=== PATIENT | female | born 1990 | race African-American/Black ===

== ENCOUNTER 2016-09-04 18:30 | Emergency (ER) | payer MEDICAID, OTHER ==
[~2016-09-04 18:30] MED LIST: Z.0.NO CURRENT MEDS
[2016-09-04 18:32] VITALS: BP 132/74; PULSE 86; RESP 20; TEMP 97.9; O2SAT 100
[2016-09-04] MEDS ORDERED: IBUP800T23 PO (18:43)
[2016-09-04] MEDS ORDERED: PROCHLORPERAZINE INJ 10 MG/2 ML VIAL IV PUSH ONE (19:30)
[2016-09-04] MEDS ORDERED: diphenhydrAMINE HCL 50 MG/ML VIAL IV PUSH ONE (19:30)
[2016-09-04] MEDS ORDERED: SODIUM CHLOR 0.9% 1000 ML INJ 1,000 ML IV ONE (19:30)
--- NOTE | 2016-09-04 19:34 | PD ---
HPI Chief Complaint: Headache Time Seen by Provider: 19:28 Travel History International Travel<30 days: No Contact w/Intl Traveler<30days: No Traveled to known affect area: No History of Present Illness HPI 25-year-old black female presents emergency Department with complaints of a migraine headache. The patient states that this headache started 3 days ago when she woke up in the morning. She was seen approximately urinary half ago by a neurologist was diagnosed with daily headaches with occasional migraines. She takes prescription Motrin for her headaches. She states that this headache has not responded completely. She states that she does get temporary relief but it does come back. Headaches are exacerbated by watching TV. There is no alleviating factors other than taking ibuprofen. Her headaches have been on or off now. There sharp and aching. She rates the pain 8/10. Some associated photophobia but no nausea vomiting. No diplopia. No blurred vision. No recent illness. No numbness, tingling or weakness. No gait disturbance. PFSH Past Medical History Narrative Medical Migraines, gallstones Diminished Hearing: No Tetanus Vaccination: < 5 Years ?: Not Past Surgical History Narrative Surgical Cholecystectomy Social History Alcohol Use: No Tobacco Use: Yes Substance Use: No Allergies-Medications (Allergen,Severity, Reaction): Coded Allergies: No Known Allergies (Verified , 09/04/16) Reported Meds & Prescriptions Reported Meds & Active Scripts Active Reported Ibuprofen 800 Mg Tab 800 Mg PO Q8H PRN Review of Systems Except as stated in HPI: all other systems reviewed are Neg Physical Exam Narrative GENERAL: Well-developed, well-nourished in no apparent distress. Nontoxic appearing. HEAD: Normocephalic, atraumatic. EYES: Pupils equal round and reactive. Extraocular motions intact. No scleral icterus. No injection or drainage. ENT: Nose clear. Throat without erythema, tonsillar hypertrophy or exudate. Uvula midline. Airway patent. NECK: Trachea midline. Supple, nontender, moves head freely. No central bony tenderness or spasm. CARDIOVASCULAR: Regular rate and rhythm without murmurs, gallops, or rubs. RESPIRATORY: Clear to auscultation. Breath sounds equal bilaterally. No wheezes , rales, or rhonchi. GASTROINTESTINAL: Abdomen soft, non-tender, nondistended. No hepato-splenomegaly , or palpable masses. No guarding. EXTREMITIES: No clubbing, cyanosis, or edema. No joint tenderness. BACK: Nontender without deformity. No flank tenderness. NEUROLOGICAL: Awake, alert and oriented x 3 .Cranial nerves grossly intact. Motor and sensory grossly within normal limits. Normal speech. Normal gait. Normal tandem gait. Normal finger to nose. Negative station and Romberg. Data Data Last Documented VS Vital Signs Date Time Temp Pulse Resp B/P Pulse Ox O2 Delivery O2 Flow Rate FiO2 09/04/16 18:44 Room Air 09/04/16 18:32 97.9 86 20 132/74 100 Orders Iv Access Insert/Monitor (09/04/16 19:26) Prochlorperazine Inj (Compazine Inj) (09/04/16 19:30) Diphenhydramine Inj (Benadryl Inj) (09/04/16 19:30) Sodium Chlor 0.9% 1000 Ml Inj (Ns 1000 M (09/04/16 19:30) MDM Medical Decision Making Medical Screen Exam Complete: Yes Emergency Medical Condition: Yes Medical Record Reviewed: Yes Differential Diagnosis MDM: High Differential diagnoses: Subarachnoid hemorrhage, intracranial bleed, aneurysm, pseudotumor, migraine, cluster headache, atypical migraine, temporal arteritis, connective tissue disorder, hypertension, temporal arteritis, sinusitis, sinus headache,malingering Narrative Course IV access is obtained. Patient's given a liter bolus normal saline, Benadryl 50 mg IV and Compazine 10 mg IV. At 2025 the patient is reexamined. She states that her headache is resolved. She is in examination room sleeping. He is medically stable for discharge. Diagnosis Primary Impression: Migraine headache Qualified Code: G43.009 - Migraine without aura and without status migrainosus , not intractable Patient Instructions: General Instructions Additional Instructions: Rest. Increase fluids. Continue home medications as needed. Follow-up with a primary care doctor in the next 1-2 days. Return to the ER for emergencies Med/Other Pt SpecificInfo: No Meds Exist/No RX given Disposition: 01 DISCHARGE HOME Condition: Stable Jaden Marroquin Sep 04, 2016 19:34
== END 2016-09-04 20:48 | disposition home or self-care (01) ==
LOC: NEPD 18:30
DX: G43.009 Migraine without aura, not intractable, without status migrainosus (principal)
CPT/HCPCS: 96374; 96375; 99283; J0780; J1200; J7030

== ENCOUNTER 2017-03-10 16:55 | Emergency (ER) | payer MEDICAID ==
[~2017-03-10] VITALS: Ht 160 cm; Wt 70.0 kg
[~2017-03-10 16:55] MED LIST changes: +IBUP1TAB7 PO; -Z.0.NO CURRENT MEDS
[2017-03-10 16:57] VITALS: BP 140/87; PULSE 100; RESP 13; TEMP 98.7; O2SAT 100
[2017-03-10] MEDS ORDERED: MEDR4PAK PO (17:49)
--- NOTE | 2017-03-10 17:51 | PD ---
HPI Chief Complaint: Pain: Acute or Chronic Time Seen by Provider: 17:48 Travel History International Travel<30 days: No Contact w/Intl Traveler<30days: No Traveled to known affect area: No History of Present Illness HPI 26-year-old female presents to emergency Department with complaint of bilateral arm pain, weakness, and bilateral hand and wrist swelling 2 months. The swelling came about again 3 days ago. She says the swelling is on and off. She also reports bilateral leg pain 2 months, specifically to the right knee and the left ankle. Denies swelling of the legs. Denies injury. Denies fever , vomiting. Denies paresthesias, loss of sensation, decreased range of motion of all extremities. Denies chest pain, shortness of breath, abdominal pain. Has been taking Aleve and ibuprofen for symptom management with no relief. Describes the pain as a tenseness. Rates the pain 7/10. Pain is worse with movement. No known relieving factors. Denies history of autoimmune disorder. Denies significant past medical history. Has tried following up with a primary care provider, but has been unable to get in to see one due to her work insurance. No known allergies. Has no other medical complaints. No other modifying factors or associated signs and symptoms. PFSH Past Medical History Diminished Hearing: No Gastrointestinal Disorders: Yes (GB DISEASE) Tetanus Vaccination: Unknown Influenza Vaccination: No ?: Not LMP: 02/16/17 Past Surgical History Cholecystectomy: Yes Social History Alcohol Use: No Tobacco Use: Yes Substance Use: No Allergies-Medications (Allergen,Severity, Reaction): Coded Allergies: No Known Allergies (Verified , 03/10/17) Reported Meds & Prescriptions Reported Meds & Active Scripts Active Medrol Dosepak (Methylprednisolone) 4 Mg Dspk 4 Mg PO DIRECTED Per Pharmacist direction Review of Systems Except as stated in HPI: all other systems reviewed are Neg Physical Exam Narrative GENERAL: Well-nourished, well-developed black female patient, in no acute distress SKIN: Warm and dry. HEAD: Atraumatic. Normocephalic. EYES: Pupils equal and round at 5 mm with brisk reaction. No scleral icterus. No injection or drainage. ENT: Mucosa pink and moist. Airway patent. NECK: Trachea midline. CARDIOVASCULAR: Regular rate and rhythm. No murmur appreciated. RESPIRATORY: No accessory muscle use. Clear to auscultation. Breath sounds equal bilaterally. GASTROINTESTINAL: Abdomen soft, non-tender, nondistended. Hepatic and splenic margins not palpable. Bowel sounds are active 4 quadrants. MUSCULOSKELETAL: Bilateral upper extremities are supple and non-tense with 2+ radial pulses and sensory intact without erythema; mild edema noted to bilateral hands and wrists, worse to the left than the right; full range of motion; decreased counter clerk strength bilaterally. Bilateral lower extremities are supple and non-tense with 2+ pedal pulses and sensory intact without erythema or edema; right knee with full range of motion and with flexion to 90 and joint stable; right knee is without erythema, edema, ecchymosis or tenderness on palpation. Left ankle is without tenderness on palpation and without erythema, edema, ecchymosis and with full range of motion. No signs of septic joints. No obvious deformities. No clubbing. No cyanosis. No edema. NEUROLOGICAL: Awake and alert. Oriented 3. No obvious cranial nerve deficits. Motor grossly within normal limits. Normal speech. PSYCHIATRIC: Appropriate mood and affect; insight and judgment normal. Data Data Last Documented VS Vital Signs Date Time Temp Pulse Resp B/P (MAP) Pulse Ox O2 Delivery O2 Flow Rate FiO2 03/10/17 16:57 98.7 100 13 140/87 (104) 100 Orders Orders Ed Discharge Order (03/10/17 17:51) MDM Medical Decision Making Medical Screen Exam Complete: Yes Emergency Medical Condition: Yes Medical Record Reviewed: Yes Differential Diagnosis Rheumatoid arthritis, autoimmune disorder, cervical radiculopathy, arthritis, carpal tunnel syndrome Narrative Course 26-year-old female with bilateral arm pain, right knee pain, left ankle pain 2 months. Denies injury. Patient is afebrile and nontoxic-appearing. Denies fever, vomiting. No signs of septic joints. I spoke with Dr. Pearce, my attending physician, and he agrees with my plan of care. Medrol Dosepak prescribed for home. Instructed patient to follow up with primary care provider. Discussed reasons to return to the emergency department. Instructed patient to follow up with primary care provider. Patient verbalizes understanding and agreement with treatment plan. Patient is medically cleared and stable for discharge. Discussed reasons to return to the emergency department. Patient agrees with treatment plan. The patients vital signs are stable and the patient is stable for outpatient follow-up and treatment. Patient discharged home, stable and in no acute distress. Diagnosis Primary Impression: Bilateral arm pain Additional Impressions: Right knee pain Qualified Codes: M25.561 - Pain in right knee Left ankle pain Qualified Codes: M25.572 - Pain in left ankle and joints of left foot Referrals: [facility] Primary Care Physician Patient Instructions: Arm Pain (ED), Arthritis (ED), General Instructions, Knee Pain (ED), Rheumatoid Arthritis (ED) Additional Instructions: Medrol Dosepak as prescribed Tylenol as directed and as needed for pain and inflammation Avoid aggravating activity Increase activity as tolerated Follow-up with primary care provider; information for [facility] has been providing her discharge instructions Return to the emergency department immediately with worsening of symptoms Med/Other Pt SpecificInfo: Prescription(s) given Scripts Methylprednisolone Dosepak (Medrol Dosepak) 4 Mg Dspk 4 MG PO DIRECTED, #1 DSPK 0 Refills Per Pharmacist direction Prov: Fang Worley 03/10/17 Disposition: 01 DISCHARGE HOME Condition: Stable Fang Worley Mar 10, 2017 17:51
== END 2017-03-10 18:15 | disposition home or self-care (01) ==
LOC: NEPK 16:55
DX: M79.602 Pain in left arm (principal); M79.601 Pain in right arm; M25.561 Pain in right knee; M25.572 Pain in left ankle and joints of left foot; R53.1 Weakness; M79.89 Other specified soft tissue disorders; Z72.0 Tobacco use
CPT/HCPCS: 99283

== ENCOUNTER 2017-03-14 18:37 | Emergency (ER) | payer MEDICAID ==
[~2017-03-14] VITALS: Ht 160 cm; Wt 62.0 kg
[~2017-03-14 18:37] MED LIST changes: -IBUP1TAB7 PO; +MEDR4PAK PO
[2017-03-14 18:38] VITALS: BP 160/96; PULSE 65; RESP 16; TEMP 98.4; O2SAT 98
--- NOTE | 2017-03-14 19:46 | PD ---
Physical Exam Date Seen by Provider: Mar 14, 2017 Time Seen by Provider: 19:45 Narrative 26-year-old black female presents to emergency department with complaints of epigastric pain since this morning. She states that she was vomiting all day. No fever chills. No urinary symptoms. Pain is 7/10. No alleviating or exacerbating factors. Vital signs reviewed. Pt waiting for bed placement. Data Data Last Documented VS Vital Signs Date Time Temp Pulse Resp B/P (MAP) Pulse Ox O2 Delivery O2 Flow Rate FiO2 03/14/17 18:38 98.4 65 16 160/96 (117) 98 Room Air [facility] Medical Record Reviewed: No Supervised Visit with NELLIE: Jaden Hancock Mar 14, 2017 19:46
--- NOTE | 2017-03-14 20:48 | PD ---
HPI Chief Complaint: GI Complaint Time Seen by Provider: 20:36 Travel History International Travel<30 days: No Contact w/Intl Traveler<30days: No Traveled to known affect area: No History of Present Illness HPI The patient was seen and examined in the presence of the nurse. This patient complains of epigastric pain. Duration one day. Severity is moderate. No lower quadrant pains. No urinary complaints or fever or diarrhea or vomiting. She ate today without undue discomfort. She has no gallbladder. No alleviating factors. No exacerbating factors. She is not an alcohol drinker or drug user [facility] Past Medical History Diminished Hearing: No Gastrointestinal Disorders: Yes (GB DISEASE) ?: Not LMP: CURRENT Past Surgical History Cholecystectomy: Yes Social History Alcohol Use: No Tobacco Use: Yes Substance Use: No Allergies-Medications (Allergen,Severity, Reaction): Coded Allergies: No Known Allergies (Verified Adverse Reaction, Unknown, 03/14/17) Reported Meds & Prescriptions Reported Meds & Active Scripts Active K-Vescent (Potassium Bicarbonate) 25 Meq Tab 50 Meq PO DAILY Medrol Dosepak (Methylprednisolone) 4 Mg Dspk 4 Mg PO DIRECTED Per Pharmacist direction Review of Systems General / Constitutional: No: Fever Eyes: No: Visual changes HENT: No: Headaches Cardiovascular: No: Chest Pain or Discomfort Respiratory: No: Shortness of Breath Gastrointestinal: Positive: Abdominal Pain Genitourinary: No: Dysuria Musculoskeletal: No: Pain Skin: No Rash Neurologic: No: Weakness Psychiatric: No: Depression Endocrine: No: Polydipsia Hematologic/Lymphatic: No: Easy Bruising Physical Exam Narrative GENERAL: Well-nourished, well-developed patient in no apparent distress. SKIN: Focused skin assessment reveals no rash and nodules. Skin is Warm and dry. HEAD: Atraumatic. Normocephalic. EYES: Pupils equal and round. No scleral icterus. No injection or drainage. ENT: No nasal bleeding or discharge. Mucous membranes pink and moist. NECK: Trachea midline. No JVD. CARDIOVASCULAR: Regular rate and rhythm. No murmur appreciated. RESPIRATORY: No accessory muscle use. Clear to auscultation. Breath sounds equal bilaterally. GASTROINTESTINAL: Abdomen soft, non-tender, nondistended. Hepatic and splenic margins not palpable. MUSCULOSKELETAL: No obvious deformities. No clubbing. No cyanosis. No edema. NEUROLOGICAL: Awake and alert. No obvious cranial nerve deficits. Motor grossly within normal limits. Normal speech. PSYCHIATRIC: Appropriate mood and affect; insight and judgment normal. Data Data Last Documented VS Vital Signs Date Time Temp Pulse Resp B/P (MAP) Pulse Ox O2 Delivery O2 Flow Rate FiO2 03/14/17 18:38 98.4 65 16 160/96 (117) 98 Room Air Orders Orders Complete Blood Count With Diff (03/14/17 20:46) Comprehensive Metabolic Panel (03/14/17 20:46) Lipase (03/14/17 20:46) Iv Access Insert/Monitor (03/14/17 20:46) Sodium Chloride 0.9% Flush (Ns Flush) (03/14/17 21:00) Beta Hcg (Quant/Titer) (03/14/17 20:46) Potassium Bicarb Eff (Effer-K Eff) (03/14/17 21:45) Labs Laboratory Tests Test 03/14/17 20:45 White Blood Count 5.0 TH/MM3 Red Blood Count 4.00 MIL/MM3 Hemoglobin 11.9 GM/DL Hematocrit 34.7 % Mean Corpuscular Volume 86.7 FL Mean Corpuscular Hemoglobin 29.7 PG Mean Corpuscular Hemoglobin Concent 34.3 % Red Cell Distribution Width 13.9 % Platelet Count 197 TH/MM3 Mean Platelet Volume 8.1 FL Neutrophils (%) (Auto) 67.6 % Lymphocytes (%) (Auto) 25.8 % Monocytes (%) (Auto) 5.1 % Eosinophils (%) (Auto) 0.9 % Basophils (%) (Auto) 0.6 % Neutrophils # (Auto) 3.4 TH/MM3 Lymphocytes # (Auto) 1.3 TH/MM3 Monocytes # (Auto) 0.3 TH/MM3 Eosinophils # (Auto) 0.0 TH/MM3 Basophils # (Auto) 0.0 TH/MM3 CBC Comment DIFF FINAL Differential Comment Blood Urea Nitrogen 11 MG/DL Creatinine 0.60 MG/DL Random Glucose 82 MG/DL Total Protein 7.1 GM/DL Albumin 2.2 GM/DL Calcium Level 7.8 MG/DL Alkaline Phosphatase 74 U/L Aspartate Amino Transf (AST/SGOT) 31 U/L Alanine Aminotransferase (ALT/SGPT) 24 U/L Total Bilirubin 0.3 MG/DL Sodium Level 139 MEQ/L Potassium Level 2.9 MEQ/L Chloride Level 105 MEQ/L Carbon Dioxide Level 26.3 MEQ/L Anion Gap 8 MEQ/L Estimat Glomerular Filtration Rate 144 ML/MIN Lipase 60 U/L Human Chorionic Gonadotropin, Quant LESS THAN 1 MIU/ML MDM Medical Decision Making Medical Screen Exam Complete: Yes Emergency Medical Condition: Yes Medical Record Reviewed: Yes Differential Diagnosis Differential diagnosis includes pancreatitis, biliary colic, hepatitis, GERD, peptic ulcer disease. Narrative Course I have reviewed the patient's electronic medical record. Patient was seen here 4 days ago for some vague musculoskeletal complaints IV placed CBC is normal metabolic profile shows hypokalemia of 2.9 otherwise normal LFT's are normal lipase is normal Beta hCG is negative This patient has negative workup other than incidental finding of hypokalemia. She has soft benign nontender abdomen without vomiting or fever. She has no gallbladder. She stable for outpatient follow-up. May be dyspepsia variant. She should follow-up with primary care. I gave her a potassium replacement dose here and a one-time dose replacement on prescription. Diagnosis Primary Impression: Epigastric abdominal pain of unknown etiology Additional Impression: Hypokalemia Additional Instructions: The patient was advised to follow up with their physician and return if they worsen. Med/Other Pt SpecificInfo: Prescription(s) given Scripts Potassium Bicarbonate Effervescent (K-Vescent) 25 Meq Tab 50 MEQ PO DAILY for Electrolyte Replacement, #2 TAB 0 Refills Prov: Walker Jaimes MD 03/14/17 Disposition: DISCHARGE HOME Condition: Stable Walker Jaimes MD Mar 14, 2017 20:48
[2017-03-14] MEDS ORDERED: SODIUM CHLORIDE 0.9% FLUSH 10 ML FLUSH IV FLUSH PRN (21:00)
[2017-03-14 21:17] LABS: AUTOMATED NEUTROPHIL # 3.4 TH/MM3 (1.8-7.7); BASOPHIL % 0.6 % (0.0-2.0); EOSINOPHIL % 0.9 % (0.0-4.0); HEMATOCRIT 34.7 % (35.0-46.0); HEMO FLAGS DIFF FINAL; LYMPH % 25.8 % (9.0-44.0); LYMPHOCYTE # 1.3 TH/MM3 (1.0-4.8); MEAN CELL VOLUME 86.7 FL (80.0-100.0); MEAN CORPUSCULAR HEMOGLOBIN 29.7 PG (27.0-34.0); MEAN CORPUSCULAR HGB CONC 34.3 % (32.0-36.0); MONO % 5.1 % (0.0-8.0); NEUT % 67.6 % (16.0-70.0); PLATELET COUNT 197 TH/MM3 (150-450); RED CELL DISTRIBUTION WIDTH 13.9 % (11.6-17.2)
[2017-03-14 21:28] LABS: ALT (GPT) 24 U/L (10-53); ANION GAP 8 MEQ/L (5-15); AST (GOT) 31 U/L (15-37); BICARBONATE 26.3 MEQ/L (21.0-32.0); BLOOD UREA NITROGEN 11 MG/DL (7-18); CHLORIDE 105 MEQ/L (98-107); GLOMERULAR FILTRATION RATE 144 ML/MIN (>89); SODIUM (NA) 139 MEQ/L (136-145)
[2017-03-14 21:33] LABS: POTASSIUM 2.9 MEQ/L (3.5-5.1)
[2017-03-14 21:36] LABS: ALKALINE PHOSPHATASE 74 U/L (45-117); BETA HCG QUANT LESS THAN 1 MIU/ML (0-5); TOTAL BILIRUBIN ADULT 0.3 MG/DL (0.2-1.0)
[2017-03-14] MEDS ORDERED: KLORCONEF PO (21:43)
[2017-03-14] MEDS ORDERED: POTASSIUM BICARBONATE 25 MEQ EFFERVESCENT TAB PO ONE (21:45)
[2017-03-14 22:02] VITALS: BP 147/76; PULSE 68; RESP 18; O2SAT 97
== END 2017-03-14 22:03 | disposition home or self-care (01) ==
LOC: NEPE 18:37
DX: R10.13 Epigastric pain (principal); E87.6 Hypokalemia; Z72.0 Tobacco use
CPT/HCPCS: 80053; 83690; 84702; 85025; 99283

== ENCOUNTER 2017-03-25 09:59 | Inpatient (IN) | payer MEDICAID ==
[2017-03-25] VITALS (8 sets, daily range): BP systolic 109–139; BP diastolic 67–92; PULSE 107–147; RESP 14–22; TEMP 97.9–98.9; O2SAT 96–100
[~2017-03-25] VITALS: Ht 160 cm; Wt 60.9 kg
[~2017-03-25 09:59] MED LIST changes: +KLORCONEF PO
--- NOTE | 2017-03-25 10:53 | PD ---
HPI Chief Complaint: Respiratory Symptoms Time Seen by Provider: 10:37 Travel History International Travel<30 days: No Contact w/Intl Traveler<30days: No Traveled to known affect area: No History of Present Illness HPI 26-year-old female complains of right-sided chest pain and hemoptysis. Patient states that the symptoms started last night. Patient states that the cough is intermittent cough with mucus and blood. Patient complain a sharp pain localized to the right side chest anteriorly below the right breast. Patient denies any pain radiation. Patient states the pain is worse with deep breathing. Patient denies any injury to the area. Patient denies abdominal pain. Patient denies any nausea vomiting diarrhea. Patient denies any dysuria or frequency. Patient denies any vaginal discharge or bleeding. Patient denies any history of TB exposure. Patient denies history hypertension, diabetes, hyperlipidemia. Patient is a smoker. Patient denies any history of recent immobilization or long distance travel. Patient denies any history of PE or DVT. Patient states that she is not on control pills. PFSH Past Medical History Diminished Hearing: No Gastrointestinal Disorders: Yes (GB DISEASE) Immunizations Current: Yes Influenza Vaccination: No ?: Not LMP: 02/26/17 Past Surgical History Cholecystectomy: Yes Social History Alcohol Use: No Tobacco Use: Yes (/ PPD) Substance Use: No Allergies-Medications (Allergen,Severity, Reaction): Coded Allergies: No Known Allergies (Verified Adverse Reaction, Unknown, 03/25/17) Reported Meds & Prescriptions Reported Meds & Active Scripts Active No Active Prescriptions or Reported Medications Review of Systems General / Constitutional: No: Fever Eyes: No: Visual changes HENT: No: Headaches Cardiovascular: Positive: Chest Pain or Discomfort Respiratory: Positive: Cough, Hemoptysis, No: Shortness of Breath Gastrointestinal: No: Abdominal Pain Genitourinary: No: Dysuria Musculoskeletal: No: Pain Skin: No Rash Neurologic: No: Weakness Psychiatric: No: Depression Endocrine: No: Polydipsia Hematologic/Lymphatic: No: Easy Bruising Physical Exam Narrative GENERAL: Well-nourished, well-developed patient. SKIN: Focused skin assessment warm/dry. HEAD: Normocephalic. EYES: No scleral icterus. No injection or drainage. NECK: Supple, trachea midline. No JVD or lymphadenopathy. CARDIOVASCULAR: Regular rate and rhythm without murmurs, gallops, or rubs. RESPIRATORY: Breath sounds equal bilaterally. No accessory muscle use. GASTROINTESTINAL: Abdomen soft, non-tender, nondistended. MUSCULOSKELETAL: No cyanosis, or edema. BACK: Nontender without obvious deformity. No CVA tenderness. Neurologic exam normal. Data Data Last Documented VS Vital Signs Date Time Temp Pulse Resp B/P (MAP) Pulse Ox O2 Delivery O2 Flow Rate FiO2 03/25/17 11:56 113 14 125/75 (92) 100 Nasal Cannula 2.00 03/25/17 10:01 97.9 Orders Orders Electrocardiogram (03/25/17 10:43) Complete Blood Count With Diff (03/25/17 10:43) Comprehensive Metabolic Panel (03/25/17 10:43) Creatine Kinase (Cpk) (03/25/17 10:43) Troponin I (03/25/17 10:43) Prothrombin Time / Inr (Pt) (03/25/17 10:43) Act Partial Throm Time (Ptt) (03/25/17 10:43) D-Dimer (03/25/17 10:43) Chest, Single Ap (03/25/17 10:43) Iv Access Insert/Monitor (03/25/17 10:43) Ecg Monitoring (03/25/17 10:43) Oxygen Administration (03/25/17 10:43) Oximetry (03/25/17 10:43) Ct Pulmonary Angiogram (03/25/17 10:43) Ed Urine Pregnancytest Poc (03/25/17 10:43) Iohexol 350 Inj (Omnipaque 350 Inj) (03/25/17 12:43) Ceftriaxone Inj (Rocephin Inj) (03/25/17 13:15) Azithromycin Inj (Zithromax Inj) (03/25/17 13:15) Heparin Inj (Heparin Inj) (03/25/17 13:15) Heparin-D5w 25,000 U/250 Ml (Heparin-D5w (03/25/17 13:15) Cbc No Diff, Includes Plts (03/28/17 06:00) Labs Laboratory Tests Test 03/25/17 10:55 White Blood Count 5.9 TH/MM3 Red Blood Count 3.78 MIL/MM3 Hemoglobin 11.1 GM/DL Hematocrit 33.0 % Mean Corpuscular Volume 87.2 FL Mean Corpuscular Hemoglobin 29.3 PG Mean Corpuscular Hemoglobin Concent 33.6 % Red Cell Distribution Width 14.2 % Platelet Count 188 TH/MM3 Mean Platelet Volume 8.3 FL Neutrophils (%) (Auto) 76.7 % Lymphocytes (%) (Auto) 16.9 % Monocytes (%) (Auto) 5.2 % Eosinophils (%) (Auto) 0.8 % Basophils (%) (Auto) 0.4 % Neutrophils # (Auto) 4.5 TH/MM3 Lymphocytes # (Auto) 1.0 TH/MM3 Monocytes # (Auto) 0.3 TH/MM3 Eosinophils # (Auto) 0.0 TH/MM3 Basophils # (Auto) 0.0 TH/MM3 CBC Comment DIFF FINAL Differential Comment Prothrombin Time 10.9 SEC Prothromb Time International Ratio 1.0 RATIO Activated Partial Thromboplast Time 27.2 SEC D-Dimer Quantitative (PE/DVT) 15.05 MG/L FEU Blood Urea Nitrogen 8 MG/DL Creatinine 0.83 MG/DL Random Glucose 93 MG/DL Total Protein 7.6 GM/DL Albumin 2.2 GM/DL Calcium Level 7.8 MG/DL Alkaline Phosphatase 71 U/L Aspartate Amino Transf (AST/SGOT) 28 U/L Alanine Aminotransferase (ALT/SGPT) 16 U/L Total Bilirubin 0.2 MG/DL Sodium Level 138 MEQ/L Potassium Level 3.9 MEQ/L Chloride Level 106 MEQ/L Carbon Dioxide Level 25.4 MEQ/L Anion Gap 7 MEQ/L Estimat Glomerular Filtration Rate 99 ML/MIN Total Creatine Kinase 133 U/L Troponin I LESS THAN 0.02 NG/ML MDM Medical Decision Making Medical Screen Exam Complete: Yes Emergency Medical Condition: Yes Medical Record Reviewed: Yes Interpretation(s) Last Impressions Chest X-Ray 03/25/17 1043 Signed Impressions: Service Date/Time: Saturday, March 25, 2017 11:06 - CONCLUSION: Developing airspace disease right lung base. No other significant abnormality. Corby Murphy MD 11:49 AM. CBC WBC 5.9. Hemoglobin 11.1 hematocrit 33.0. 76 neutrophil. CMP within normal limit. Cardiac enzymes are normal. D-dimer 15.05. 12:57 PM. Last Impressions Chest X-Ray 03/25/17 1043 Signed Impressions: Service Date/Time: Saturday, March 25, 2017 11:06 - CONCLUSION: Developing airspace disease right lung base. No other significant abnormality. Corby Murphy MD CT Angiography 03/25/17 1043 Signed Impressions: Service Date/Time: Saturday, March 25, 2017 12:09 - CONCLUSION: 1. Positive for PE with large saddle embolism in the lobar artery to the right lower lobe. 2. Developing right lower lobe infiltrate 3. No other significant abnormality. Corby Murphy MD Differential Diagnosis Differential diagnosis including chest wall pain, bronchitis, pneumonia, PE, pneumothorax. Narrative Course 26-year-old female with right-sided chest pain and hemoptysis. Heparin bolus and drip started. Rocephin 1 g IV. Zithromax 5 mg IV. Diagnosis Primary Impression: Pulmonary embolus Qualified Codes: I26.92 - Saddle embolus of pulmonary artery without acute cor pulmonale Additional Impression: Pneumonia Qualified Codes: J18.1 - Lobar pneumonia, unspecified organism Scripts No Active Prescriptions or Reported Meds Crow Holley MD Mar 25, 2017 10:53
[2017-03-25 11:15] LABS: AUTOMATED NEUTROPHIL # 4.5 TH/MM3 (1.8-7.7); BASOPHIL % 0.4 % (0.0-2.0); EOSINOPHIL % 0.8 % (0.0-4.0); HEMO FLAGS DIFF FINAL; LYMPH % 16.9 % (9.0-44.0); MEAN CELL VOLUME 87.2 FL (80.0-100.0); MEAN CORPUSCULAR HEMOGLOBIN 29.3 PG (27.0-34.0); MEAN CORPUSCULAR HGB CONC 33.6 % (32.0-36.0); MONO % 5.2 % (0.0-8.0); NEUT % 76.7 % (16.0-70.0); PLATELET COUNT 188 TH/MM3 (150-450); RED BLOOD COUNT 3.78 MIL/MM3 (4.00-5.30); RED CELL DISTRIBUTION WIDTH 14.2 % (11.6-17.2); WHITE BLOOD COUNT 5.9 TH/MM3 (4.0-11.0)
[2017-03-25 11:32] LABS: ALT (GPT) 16 U/L (10-53); ANION GAP 7 MEQ/L (5-15); AST (GOT) 28 U/L (15-37); BICARBONATE 25.4 MEQ/L (21.0-32.0); BLOOD UREA NITROGEN 8 MG/DL (7-18); CHLORIDE 106 MEQ/L (98-107); GLOMERULAR FILTRATION RATE 99 ML/MIN (>89); POTASSIUM 3.9 MEQ/L (3.5-5.1); SODIUM (NA) 138 MEQ/L (136-145)
--- NOTE | 2017-03-25 11:33 | RADRPT ---
EXAM DATE/TIME: 03/25/2017 11:06 [facility] COMPARISON: No previous studies available for comparison. INDICATIONS : Shortness of breath and pain under right breast. MEDICAL HISTORY : None. SURGICAL HISTORY : None. ENCOUNTER: Initial ACUITY: 1 day PAIN SCORE: 7/10 LOCATION: Right lower chest FINDINGS: Increased density is identified in the right lung base. Left lung is clear. Heart and mediastinal structures are normal. CONCLUSION: Developing airspace disease right lung base. No other significant abnormality. Corby Murphy MD on March 25, 2017 at 11:31 Board Certified Radiologist. This report was verified electronically.
[2017-03-25 11:36] LABS: ALKALINE PHOSPHATASE 71 U/L (45-117); CREATINE KINASE 133 U/L (26-192); TOTAL BILIRUBIN ADULT 0.2 MG/DL (0.2-1.0)
[2017-03-25 11:37] LABS: APTT (PATIENT) 27.2 SEC (24.3-30.1); PROTHROMBIN TIME - PATIENT 10.9 SEC (9.8-11.6)
[2017-03-25] MEDS ORDERED: IOHEXOL 350 MG/ML 10 ML VIAL (for RAD DIAG) IVCONTRAST ONE (12:43)
--- NOTE | 2017-03-25 12:48 | RADRPT ---
EXAM DATE/TIME: 03/25/2017 12:09 [facility] COMPARISON: No previous studies available for comparison. INDICATIONS : Chest pain. IV CONTRAST: 75 cc Omnipaque 350 (iohexol) IV RADIATION DOSE: 5.1 CTDIvol (mGy) MEDICAL HISTORY : None SURGICAL HISTORY : Cholecystectomy. ENCOUNTER: Initial ACUITY: 1 day PAIN SCALE: 4/10 LOCATION: Right chest TECHNIQUE: Volumetric scanning of the chest was performed using a pulmonary embolism protocol MIP images were re constructed. Using automated exposure control and adjustment of the mA and/or kV according to patien t size, radiation dose was kept as low as reasonably achievable to obtain optimal diagnostic quality images. DICOM format image data is available electronically for review and comparison. Follow-up recommendations for detected pulmonary nodules are based at a minimum on nodule size and pa tient risk factors according to Fleischner Society Guidelines. FINDINGS: PULMONARY ARTERIES: A large saddle embolism is identified in the lobar artery to the right lower lobe. LUNGS: Peripheral infiltrate is developing in the right lower lobe. Left lung is clear. PLEURAE: There is no pleural thickening or pleural effusion. MEDIASTINUM: There is good visualization of the great vessels of the middle mediastinum. No evidence of mediastin al or hilar adenopathy/mass. MUSCULOSKELETAL: Within normal limits for patient age. MISCELLANEOUS: The visualized upper abdominal organs demonstrate no acute abnormality. CONCLUSION: 1. Positive for PE with large saddle embolism in the lobar artery to the right lower lobe. 2. Developing right lower lobe infiltrate 3. No other significant abnormality. Corby Murphy MD on March 25, 2017 at 12:43 Board Certified Radiologist. This report was verified electronically.
[2017-03-25] MEDS ORDERED: cefTRIAXone INJ 1,000 MG in SODIUM CHLORIDE 0.9% INJ 100 ML IV ONE (13:15)
[2017-03-25] MEDS ORDERED: AZITHROMYCIN INJ 500 MG in SODIUM CHLOR 0.9% 250 ML INJ 250 ML IV ONE (13:15)
[2017-03-25] MEDS ORDERED: HEPARIN SODIUM - IV 10,000 UNITS/10 ML VIAL IV PUSH ONE (13:15)
[2017-03-25] MEDS ORDERED: NALOXONE HCL 0.4 MG/ML AMP IV PUSH PRN (13:30)
[2017-03-25] MEDS ORDERED: ACETAMINOPHEN/HYDROcodone 325 MG/5 MG TAB PO PRN (13:30)
[2017-03-25] MEDS ORDERED: MAGNESIUM HYDROXIDE SUSP 30 ML CUP PO PRN (13:30)
[2017-03-25] MEDS ORDERED: SODIUM CHLORIDE 0.9% FLUSH 10 ML FLUSH IV FLUSH PRN (13:30)
[2017-03-25] MEDS: HEPARIN-D5W 25,000 U/250 ML 250 ML IV PRN (13:54)
[2017-03-25] MEDS: ACETAMINOPHEN/HYDROcodone 325 MG/10 MG TAB PO PRN ×2 (14:00→21:33)
--- NOTE | 2017-03-25 15:56 | RADRPT ---
EXAM DATE/TIME: 03/25/2017 14:45 [facility] COMPARISON: No previous studies available for comparison. INDICATIONS : Bilateral leg pain. Pulmonary embolism. MEDICAL HISTORY : Gallbladder disease. Tobacco use. SURGICAL HISTORY : Cholecystectomy. ENCOUNTER: Initial ACUITY: 2 weeks PAIN SCORE: 8/10 LOCATION: Bilateral leg. TECHNIQUE: Venous ultrasound of the left and right leg was performed from the inguinal ligament to the proximal calf. Real-time, color Doppler and spectral tracing, compression and augmentation techniques were us ed. FINDINGS: RIGHT LEG: There is normal compressibility of the deep venous system from the inguinal region to the proximal ca lf. No echogenic clot is seen in the lumen of the common femoral, femoral, popliteal, and posterior tibial veins. There is a normal response of the venous system to proximal and distal augmentation an d respiration. Prominent lymph nodes in the inguinal region all contain fatty melina and are almost ce rtainly reactive. Largest measures 3.7 x 0.7 x 1.6 cm. LEFT LEG: There is normal compressibility of the deep venous system from the inguinal region to the proximal ca lf. No echogenic clot is seen in the lumen of the common femoral, femoral, popliteal, and posterior tibial veins. There is a normal response of the venous system to proximal and distal augmentation an d respiration. Prominent lymph nodes in a normal region again all contain fatty melina and are likely reactive. Largest measures 2.7 x 1.0 x 2.2 cm. CONCLUSION: 1. Prominent inguinal lymph nodes bilaterally. These all contain fatty melina and are likely reactive. 2. Otherwise negative. No sonographic or Doppler findings of deep venous thrombosis. Mahesh Gamboa MD on March 25, 2017 at 15:53 Board Certified Radiologist. This report was verified electronically.
--- NOTE | 2017-03-25 17:41 | HHI.HP ---
[facility] No Primary Care Physician Admission Diagnosis pulmonary embolus. Pneumonia. Diagnoses: Travel History International Travel<30 Days: No Contact w/Intl Traveler <30 Da: No Traveled to Known Affected Are: No History of Present Illness Mrs. Frank is a 26 -year-old female. She has a past medical history of cholelithiasis with cholecystectomy has resolved. No other past medical history. No history of clotting disorder in both her or her family. She has no history to suggest autoimmune conditions. She came in this morning secondary to having an acute onset of central chest pain overnight that was accompanied by shortness of breath. Imaging shows a right sided pneumonia. Additionally she has a large saddle embolus and negative lower extremity workup for DVTs. She's doing well with oxygen. Pain persists when seen. No other complaints. No changes in neurologic status. No fevers. Review of Systems Constitutional: DENIES: Diaphoretic episodes, Fever, Chills, Dizziness Eyes: DENIES: Blurred vision, Diplopia, Eye inflammation Ears, nose, mouth, throat: DENIES: Tinnitus, Hearing loss, Vertigo Respiratory: COMPLAINS OF: Cough, Hemoptysis, Sputum production, Shortness of breath, DENIES: Apneas, Snoring Cardiovascular: COMPLAINS OF: Chest pain, DENIES: Palpitations, Syncope Gastrointestinal: DENIES: Abdominal pain, Black stools, Bloody stools Musculoskeletal: DENIES: Joint pain, Muscle aches, Stiffness Integumentary: DENIES: Abnormal pigmentation, Pruritus, Rash, Nail changes Hematologic/lymphatic: DENIES: Bruising, Lymphadenopathy Immunologic/allergic: DENIES: Eczema, Urticaria Neurologic: DENIES: Abnormal gait, Headache, Paresthesias Psychiatric: DENIES: Anxiety, Confusion, Hallucinations Past Family Social History Past Medical History Hx of Gallstones Past Surgical History Cholecystectomy Reported Medications Reported Meds & Active Scripts Active No Active Prescriptions or Reported Medications Allergies: Coded Allergies: No Known Allergies (Verified Adverse Reaction, Unknown, 03/25/17) Active Ordered Medications Administered Medications Medications (Trade) Dose Ordered Sig/Mara Route PRN Reason Start Time Stop Time Status Last Admin Dose Admin Heparin Sodium/ Dextrose 250 ml @ 10.8 mls/hr TITRATE PRN IV Coagulation Management 03/25/17 13:15 03/25/17 13:54 Acetaminophen/ Hydrocodone Bitart ([place] 5-325 Mg) 1 tab Q4H PRN PO PAIN SCALE 3 TO 5 03/25/17 13:30 03/25/17 17:28 Acetaminophen/ Hydrocodone Bitart ([place] 10-325 Mg) 1 tab Q4H PRN PO PAIN SCALE 6 TO 10 03/25/17 13:30 03/25/17 14:00 Social History Smoking 1/2 PPD No alcohol abuse No illicit drug abuse Physical Exam Vital Signs Vital Signs Date Time Temp Pulse Resp B/P (MAP) Pulse Ox O2 Delivery O2 Flow Rate FiO2 03/25/17 16:00 98.9 113 20 110/67 (81) 99 03/25/17 15:50 03/25/17 15:18 121 16 122/71 (88) 100 Room Air 03/25/17 11:56 113 14 125/75 (92) 100 Nasal Cannula 2.00 03/25/17 10:23 125 16 109/92 (98) 100 Room Air 03/25/17 10:01 97.9 147 22 139/78 (98) 100 Physical Exam GENERAL: NAD, A&Ox3 HEAD: Normocephalic. NECK: Supple, trachea midline. No lymphadenopathy. EYES: No scleral icterus. No injection or drainage. CARDIOVASCULAR: Regular rate and rhythm without murmurs, gallops, or rubs. RESPIRATORY: Breath sounds equal bilaterally. No accessory muscle use. GASTROINTESTINAL: Abdomen soft, non-tender, nondistended. MUSCULOSKELETAL: No cyanosis, or edema. SKIN: Warm and dry. NEURO: No focal neurological deficitis. Laboratory Laboratory Tests Test 03/25/17 10:55 White Blood Count 5.9 Red Blood Count 3.78 Hemoglobin 11.1 Hematocrit 33.0 Mean Corpuscular Volume 87.2 Mean Corpuscular Hemoglobin 29.3 Mean Corpuscular Hemoglobin Concent 33.6 Red Cell Distribution Width 14.2 Platelet Count 188 Mean Platelet Volume 8.3 Neutrophils (%) (Auto) 76.7 Lymphocytes (%) (Auto) 16.9 Monocytes (%) (Auto) 5.2 Eosinophils (%) (Auto) 0.8 Basophils (%) (Auto) 0.4 Neutrophils # (Auto) 4.5 Lymphocytes # (Auto) 1.0 Monocytes # (Auto) 0.3 Eosinophils # (Auto) 0.0 Basophils # (Auto) 0.0 CBC Comment DIFF FINAL Differential Comment Prothrombin Time 10.9 Prothromb Time International Ratio 1.0 Activated Partial Thromboplast Time 27.2 D-Dimer Quantitative (PE/DVT) 15.05 Blood Urea Nitrogen 8 Creatinine 0.83 Random Glucose 93 Total Protein 7.6 Albumin 2.2 Calcium Level 7.8 Alkaline Phosphatase 71 Aspartate Amino Transf (AST/SGOT) 28 Alanine Aminotransferase (ALT/SGPT) 16 Total Bilirubin 0.2 Sodium Level 138 Potassium Level 3.9 Chloride Level 106 Carbon Dioxide Level 25.4 Anion Gap 7 Estimat Glomerular Filtration Rate 99 Total Creatine Kinase 133 Troponin I LESS THAN 0.02 Result Diagram: 03/25/17 1055 03/25/17 1055 Imaging Last Impressions Chest X-Ray 03/25/17 1043 Signed Impressions: Service Date/Time: Saturday, March 25, 2017 11:06 - CONCLUSION: Developing airspace disease right lung base. No other significant abnormality. Corby Murphy MD CT Angiography 03/25/17 1043 Signed Impressions: Service Date/Time: Saturday, March 25, 2017 12:09 - CONCLUSION: 1. Positive for PE with large saddle embolism in the lobar artery to the right lower lobe. 2. Developing right lower lobe infiltrate 3. No other significant abnormality. Corby Murphy MD Lower Extremity Ultrasound 03/25/17 0000 Signed Impressions: Service Date/Time: Saturday, March 25, 2017 14:45 - CONCLUSION: 1. Prominent inguinal lymph nodes bilaterally. These all contain fatty melina and are likely reactive. 2. Otherwise negative. No sonographic or Doppler findings of deep venous thrombosis. Mahesh Gamboa MD Caprini VTE Risk Assessment Caprini VTE Risk Assessment: Mod/High Risk (score >= 2) Caprini Risk Assessment Model Point Value = 1 Point Value = 2 Point Value = 3 Point Value = 5 Age 41-60 Minor surgery BMI > 25 kg/m2 Swollen legs Varicose veins or History of unexplained or recurrent spontaneous Oral contraceptives or hormone replacement Sepsis (< 1 month) Serious lung disease, including pneumonia (< 1 month) Abnormal pulmonary function Acute myocardial infarction Congestive heart failure (< 1 month) History of inflammatory bowel disease Medical patient at bed rest Age 61-74 Arthroscopic surgery Major open surgery (> 45 min) Laparoscopic surgery (> 45 min) Malignancy Confined to bed (> 72 hours) Immobilizing plaster cast Central venous access Age >= 75 History of VTE Family history of VTE Factor V Leiden Prothrombin [id number] Lupus anticoagulant Anticardiolipin antibodies Elevated serum homocysteine Heparin-induced thrombocytopenia Other congenital or acquired thrombophilia Stroke (< 1 month) Elective arthroplasty Hip, pelvis, or leg fracture Acute spinal cord injury (< 1 month) Prophylaxis Regimen Total Risk Factor Score Risk Level Prophylaxis Regimen 0-1 Low Early ambulation 2 Moderate Order ONE of the following: *Sequential Compression Device (SCD) *Heparin 5000 units SQ BID 3-4 Higher Order ONE of the following medications: *Heparin 5000 units SQ TID *Enoxaparin/Lovenox 40 mg SQ daily (WT < 150 kg, CrCl > 30 mL/min) *Enoxaparin/Lovenox 30 mg SQ daily (WT < 150 kg, CrCl > 10-29 mL/min) *Enoxaparin/Lovenox 30 mg SQ BID (WT < 150 kg, CrCl > 30 mL/min) AND/OR *Sequential Compression Device (SCD) 5 or more Highest Order ONE of the following medications: *Heparin 5000 units SQ TID (Preferred with Epidurals) *Enoxaparin/Lovenox 40 mg SQ daily (WT < 150 kg, CrCl > 30 mL/min) *Enoxaparin/Lovenox 30 mg SQ daily (WT < 150 kg, CrCl > 10-29 mL/min) *Enoxaparin/Lovenox 30 mg SQ BID (WT < 150 kg, CrCl > 30 mL/min) AND *Sequential Compression Device (SCD) Assessment and Plan Problem List: (1) Pneumonia ICD Code: J18.9 - Pneumonia, unspecified organism Status: Acute (2) Pulmonary embolus ICD Code: I26.99 - Other pulmonary embolism without acute cor pulmonale Status: Acute (3) Migraine headache ICD Code: G43.909 - Migraine, unspecified, not intractable, without status migrainosus Status: Acute Assessment and Plan Assessment and Plan 26 year old female admitted with a Large Saddle Pulmonary Embolus and Pneumonia Large Saddle Pulmonary Embolus IV Heparin Follow on Estimate Clerk for symptoms Oxygen as needed No DVT of lower extremity US Hematology consulted Pneumonia (Community Acquired) Rocephin Azithromycin Probiotics Oxygen as needed DVT Prophylaxis Heparin IV Drip Physician Certification 2 Midnight Certification Type: Admission for Inpatient Services Order for Inpatient Services The services are ordered in accordance with Medicare regulations or non- Medicare payer requirements, as applicable. In the case of services not specified as inpatient-only, they are appropriately provided as inpatient services in accordance with the 2-midnight benchmark. Estimated LOS (days): 3 days is the estimated time the patient will need to remain in the hospital, assuming treatment plan goals are met and no additional complications. Post-Hospital Plan: Home Problem Qualifiers (1) Pneumonia: Qualified Codes: J18.1 - Lobar pneumonia, unspecified organism (2) Pulmonary embolus: Qualified Codes: I26.92 - Saddle embolus of pulmonary artery without acute cor pulmonale Juan Qureshi MD Mar 25, 2017 17:41
[2017-03-25] MEDS: LACTOBACILLUS ACIDOPHILUS TAB PO SCH (18:00)
[2017-03-25] MEDS: SODIUM CHLORIDE 0.9% FLUSH 10 ML FLUSH IV FLUSH SCH (21:00)
[2017-03-25 21:51] LABS: APTT (PATIENT) 44.2 SEC (24.3-30.1)
[2017-03-26] VITALS (7 sets, daily range): BP systolic 102–111; BP diastolic 57–72; PULSE 110–121; RESP 18–23; TEMP 98.6–102.8; O2SAT 94–100
[2017-03-26] MEDS: ONDANSETRON HCL 4 MG/2 ML VIAL IVP PRN ×3 (00:31→21:46)
[2017-03-26] MEDS: MORPHINE SULFATE 2 MG/ML INJ IV PUSH PRN ×5 (00:31→21:47)
[2017-03-26] MEDS: ACETAMINOPHEN/HYDROcodone 325 MG/10 MG TAB PO PRN ×4 (02:40→19:10)
[2017-03-26] MEDS ORDERED: ACETAMINOPHEN 325 MG TAB PO PRN (02:45)
[2017-03-26 04:22] LABS: AUTOMATED NEUTROPHIL # 8.9 TH/MM3 (1.8-7.7); BASOPHIL % 0.4 % (0.0-2.0); EOSINOPHIL % 0.2 % (0.0-4.0); HEMATOCRIT 28.4 % (35.0-46.0); HEMO FLAGS DIFF FINAL; LYMPH % 10.4 % (9.0-44.0); LYMPHOCYTE # 1.1 TH/MM3 (1.0-4.8); MEAN CELL VOLUME 86.6 FL (80.0-100.0); MEAN CORPUSCULAR HEMOGLOBIN 29.9 PG (27.0-34.0); MEAN CORPUSCULAR HGB CONC 34.5 % (32.0-36.0); MONO % 5.4 % (0.0-8.0); NEUT % 83.6 % (16.0-70.0); PLATELET COUNT 151 TH/MM3 (150-450); RED BLOOD COUNT 3.28 MIL/MM3 (4.00-5.30); RED CELL DISTRIBUTION WIDTH 14.4 % (11.6-17.2); WHITE BLOOD COUNT 10.6 TH/MM3 (4.0-11.0)
[2017-03-26 04:30] LABS: RHEUMATOID FACTOR TRIGGER 20.6 IU/ML (0.0-14.9)
[2017-03-26 04:47] LABS: APTT (PATIENT) 40.8 SEC (24.3-30.1)
[2017-03-26 04:52] LABS: POTASSIUM 3.9 MEQ/L (3.5-5.1); TOTAL BILIRUBIN ADULT 0.3 MG/DL (0.2-1.0)
[2017-03-26 05:08] LABS: CALCIUM-PROTEIN CORRECTED 7.3 MG/DL (8.5-10.1)
[2017-03-26] MEDS ORDERED: CALCIUM GLUCONATE INJ 1 GM in DEXTROSE 5% IN WATER 100ML INJ 100 ML IV ONE ×2 (07:00)
[2017-03-26] MEDS ORDERED: CALCIUM CARBONATE 1.25 GM (CA 500 MG) TAB PO ONE (08:15)
[2017-03-26] MEDS: LACTOBACILLUS ACIDOPHILUS TAB PO SCH ×3 (08:59→17:35)
[2017-03-26] MEDS: SODIUM CHLORIDE 0.9% FLUSH 10 ML FLUSH IV FLUSH SCH ×2 (09:03→21:48)
--- NOTE | 2017-03-26 12:48 | PD.ONC.PN ---
Objective Data Date Time Temp Pulse Resp B/P (MAP) Pulse Ox O2 Delivery O2 Flow Rate FiO2 03/26/17 04:00 99.4 03/26/17 04:00 99.4 118 18 103/62 (76) 94 03/26/17 02:00 102.8 03/26/17 00:30 Room Air 03/26/17 00:00 100.0 120 23 111/72 (85) 99 03/25/17 21:30 Room Air 03/25/17 20:36 107 03/25/17 20:00 97.9 122 21 112/71 (85) 96 03/25/17 18:28 123 03/25/17 17:41 03/25/17 16:00 98.9 113 20 110/67 (81) 99 03/25/17 15:50 03/25/17 15:18 121 16 122/71 (88) 100 Room Air 03/26/17 03/26/17 03/26/17 07:00 15:00 23:00 Intake Total 224 ml 110 ml Balance 224 ml 110 ml Result Diagram: 03/26/17 0358 03/26/17 0358 Laboratory Results Laboratory Tests Test 03/25/17 18:17 03/25/17 21:28 03/26/17 03:58 Activated Partial Thromboplast Time 97.0 SEC 44.2 SEC 40.8 SEC White Blood Count 10.6 TH/MM3 Red Blood Count 3.28 MIL/MM3 Hemoglobin 9.8 GM/DL Hematocrit 28.4 % Mean Corpuscular Volume 86.6 FL Mean Corpuscular Hemoglobin 29.9 PG Mean Corpuscular Hemoglobin Concent 34.5 % Red Cell Distribution Width 14.4 % Platelet Count 151 TH/MM3 Mean Platelet Volume 8.7 FL Neutrophils (%) (Auto) 83.6 % Lymphocytes (%) (Auto) 10.4 % Monocytes (%) (Auto) 5.4 % Eosinophils (%) (Auto) 0.2 % Basophils (%) (Auto) 0.4 % Neutrophils # (Auto) 8.9 TH/MM3 Lymphocytes # (Auto) 1.1 TH/MM3 Monocytes # (Auto) 0.6 TH/MM3 Eosinophils # (Auto) 0.0 TH/MM3 Basophils # (Auto) 0.0 TH/MM3 CBC Comment DIFF FINAL Differential Comment Erythrocyte Sedimentation Rate 118 mm/hr Blood Urea Nitrogen 12 MG/DL Creatinine 1.07 MG/DL Random Glucose 95 MG/DL Total Protein 7.3 GM/DL Albumin 1.9 GM/DL Calcium Level 7.3 MG/DL Alkaline Phosphatase 67 U/L Aspartate Amino Transf (AST/SGOT) 23 U/L Alanine Aminotransferase (ALT/SGPT) 13 U/L Total Bilirubin 0.3 MG/DL Sodium Level 135 MEQ/L Potassium Level 3.9 MEQ/L Chloride Level 104 MEQ/L Carbon Dioxide Level 25.0 MEQ/L Anion Gap 6 MEQ/L Estimat Glomerular Filtration Rate 74 ML/MIN Protein Corrected Calcium 7.3 MG/DL C-Reactive Protein 10.40 MG/DL Rheumatoid Factor Screen POSITIVE Rheumatoid Factor Titer 20.6 IU/ML Administered Medications Medications (Trade) Dose Ordered Sig/Mara Route PRN Reason Start Time Stop Time Status Last Admin Dose Admin Heparin Sodium/ Dextrose 250 ml @ 10.8 mls/hr TITRATE PRN IV Coagulation Management 03/25/17 13:15 03/25/17 13:54 Sodium Chloride (NS Flush) 2 ml BID IV FLUSH 03/25/17 21:00 03/26/17 09:03 Ondansetron HCl (Zofran Inj) 4 mg Q6H PRN IVP NAUSEA OR VOMITING 03/25/17 13:30 03/26/17 00:31 Acetaminophen/ Hydrocodone Bitart ([place] 5-325 Mg) 1 tab Q4H PRN PO PAIN SCALE 3 TO 5 03/25/17 13:30 03/25/17 17:28 Acetaminophen/ Hydrocodone Bitart ([place] 10-325 Mg) 1 tab Q4H PRN PO PAIN SCALE 6 TO 10 03/25/17 13:30 03/26/17 08:59 Lactobacillus Acidophilus (Lactinex) 1 tab TID PO 03/25/17 18:00 03/26/17 08:59 Morphine Sulfate (Morphine Inj) 2 mg Q3H PRN IV PUSH breakthrough 03/26/17 00:30 03/26/17 11:57 Acetaminophen (Tylenol) 650 mg Q4H PRN PO fever 03/26/17 02:45 03/26/17 02:54 Objective Remarks GENERAL: Well-nourished, well-developed patient. SKIN: Warm and dry. HEAD: Normocephalic. EYES: No scleral icterus. No injection or drainage. NECK: Supple, trachea midline. No JVD or lymphadenopathy. LYMPHATIC: No adenopathy. CARDIOVASCULAR: Regular rate and rhythm without murmurs. RESPIRATORY: Breath sounds equal bilaterally. No accessory muscle use. GASTROINTESTINAL: Abdomen soft, non-tender, nondistended. EXTREMITIES: No cyanosis, or edema. MUSCULOSKELETAL: Adequate muscle tone. NEUROLOGICAL: No obvious focal deficit. Awake, alert, and oriented x3. PSYCHIATRIC: Appropriate mood and affect; insight and judgment normal. Enrique Quinones MD Mar 26, 2017 12:48
[2017-03-26] MEDS: AZITHROMYCIN INJ 500 MG in SODIUM CHLOR 0.9% 250 ML INJ 250 ML IV SCH (13:00)
[2017-03-26] MEDS: cefTRIAXone INJ 1,000 MG in SODIUM CHLORIDE 0.9% INJ 100 ML IV SCH (13:00)
--- NOTE | 2017-03-26 13:07 | EKG ---
Date Performed: 03/25/2017 Time Performed: 11:02:07 PTAGE: 26 years EKG: SINUS TACHYCARDIA ABNORMAL RHYTHM ECG NO PREVIOUS TRACING DOCTOR: Chad Stokes Interpretating Date/Time 03/26/2017 13:05:03
--- NOTE | 2017-03-26 13:42 | MB ---
cc: ERLINDA FALCON DATE OF CONSULTATION: 03/25/2017. REASON FOR CONSULTATION: Patient with a large saddle embolism in the lobar artery to the right lobe as well as DVT. HISTORY OF PRESENT ILLNESS: This is a 26-year-old female with a past medical history of cholelithiasis and has had a cholecystectomy. She has no other past medical history. She presented to the emergency department with acute dyspnea which began three to four days ago and progressively became worse. In the emergency room, a CT angiogram was obtained which revealed a large saddle embolism in the lobar artery of the right lower lobe. She also had Doppler ultrasound of lower extremity which did not reveal any findings of DVT. The patient was started on heparin drip. Hematology has been consulted to make further recommendations. The patient was found to have pneumonia on CT scan and she is currently on IV antibiotics. She has no past medical history of blood disorders. She denies any family members with any blood clots, heart attack, stroke at an early age. She smokes cigarettes. She does not drink alcohol. No illicit drug use. REVIEW OF SYSTEMS: A comprehensive fourteen-point review of systems was completed, which is negative except as described in the history of present illness. PAST MEDICAL HISTORY: History of cholelithiasis. PAST SURGICAL HISTORY: Cholecystectomy. MEDICATIONS: 1. Ceftriaxone 1000 milligrams q.24 h. 2. Azithromycin 5 milligrams IV q.24 h. 3. Tylenol 650 p.o. q.4 h. 4. Morphine sulfate 2 milligrams IV q. 3 hours. 5. Lactobacillus one tablet p.o. three times a day. 6. Zofran 4 milligrams IV q. 6 hours. 7. [place] 5/325 one tablet p.o. q. 4 hours. 8. Milk of magnesia. 9. Heparin GTT. ALLERGIES: She has NO KNOWN DRUG ALLERGIES. FAMILY HISTORY: Family history was reviewed and she does not have any family history of blood disorders. SOCIAL HISTORY: She smokes half-a-pack of cigarettes per day. No alcohol abuse. No illicit drug use. PHYSICAL EXAMINATION: VITAL SIGNS: Blood pressure is 110/67, pulse in the 100s, temperature is 98.9. GENERAL: A well-developed, well-nourished young female in no apparent distress. HEAD, EYES, EARS, NOSE, THROAT: Pupils are equal, round and reactive to light. Extraocular muscles intact. No oral thrush. No oral lesions. NECK: The neck is supple. No jugular venous distention. No bruits. No lymphadenopathy. CHEST: Clear to auscultation bilaterally. CARDIAC: S1-S2. Regular rate and rhythm. ABDOMEN: The abdomen is soft, nontender and nondistended. Bowel sounds are present. EXTREMITIES: Without any edema, erythema or cyanosis. SKIN: Without any petechiae or lesions or bruises. NEUROLOGIC: No focal deficit. PSYCHIATRIC: Mood and affect are appropriate. LABORATORY DATA: WBC 5.9, hemoglobin 11.1, MCV is 87.2, platelet count of 188,000. Serum chemistries show a sodium of 138, potassium 3.9, chloride 106, CO2 25.4, anion gap is 7, BUN is 8, creatinine is 0.83, GFR is 99, glucose is 93, calcium is 7.8, AST is 28, ALT 16, alkaline phosphatase is 71, CK is 133, albumin is 2.2. The patient has a positive rheumatoid factor screen. NASREEN is pending. Her erythrocyte sedimentation rate is elevated to 118. IMAGING STUDIES: Imaging was reviewed in the electronic medical record. ASSESSMENT AND PLAN: This is a 26-year-old female with a history of cholelithiasis status post cholecystectomy and no significant past medical history who presents to the emergency department with acute dyspnea and heart palpitations. 1. Acute pulmonary saddle embolism in an un-provoked situation. She has no past medical history of any blood disorders or blood clots. Family history is insignificant also. Her only risk factor is tobacco abuse. There is no history of autoimmune disorders; however, her rheumatoid screen is positive. There is no history of any supplemental hormones et cetera, she has not had prolonged car travel or airline flight. I agree with heparin GTT. We can switch this patient to either warfarin or Eliquis depending on if this is allowed by her insurance. If she is switched to Coumadin, then continue heparin GTT for 48 hours until after her INR is greater than 2. She will need to establish a primary care physician to manage her Coumadin. She will need Coumadin education. She will need to be on anticoagulation for at least six months. We can obtain a partial hypercoagulable workup since some of the lab workup is not reliable while on anticoagulation and in the setting of acute thrombosis. We can reliably check for Factor V Leiden, antiphospholipid antibodies, prothrombin mutations, and NASREEN while anti- thrombin III deficiency for activated protein-C resistance and protein-S will be deferred and should be checked in the outpatient setting in 6 months after her AC has been stopped. The findings in the hypercoagulable workup will not change our management. She needs to be on anticoagulation at least for six months, and possibly indefinitely. She will need re-evaluation at that time 2. Pneumonia currently on antibiotics. Thank you for allowing me to participate in the care of this patient. I will continue to follow this patient along. MD KENDRA Garcia/RAÚL /12:45 PM /1:31 PM [id number]
[2017-03-26] MEDS: HEPARIN-D5W 25,000 U/250 ML 250 ML IV PRN (14:18)
--- NOTE | 2017-03-26 14:21 | HHI.PR ---
Subjective Remarks Rheumatoid factor test positive. Patient interviewed further about joint pains. She says about 2 months ago she had an acute onset of joint pains and has been fairly incapacitated since that time. She says she spends most of her time in chairs and bed for the past 2 months. When she takes a shower she has to sit in a chair due to the pain. She has difficulty dressing. Most of the pain is present at her knees, feet, hands, and wrists. All joints are involved. This is suggestive of rheumatoid arthritis but could also reflect other autoimmune conditions including lupus. The inflammation in the stasis could've been contributory to her pulmonary embolus. No DVT on scan of lower extremities. Objective Vital Signs Date Time Temp Pulse Resp B/P (MAP) Pulse Ox O2 Delivery O2 Flow Rate FiO2 03/26/17 12:12 99.7 116 20 103/67 (79) 99 03/26/17 04:00 99.4 03/26/17 04:00 99.4 118 18 103/62 (76) 94 03/26/17 02:00 102.8 03/26/17 00:30 Room Air 03/26/17 00:00 100.0 120 23 111/72 (85) 99 03/25/17 21:30 Room Air 03/25/17 20:36 107 03/25/17 20:00 97.9 122 21 112/71 (85) 96 03/25/17 18:28 123 03/25/17 17:41 03/25/17 16:00 98.9 113 20 110/67 (81) 99 03/25/17 15:50 03/25/17 15:18 121 16 122/71 (88) 100 Room Air I/O 03/25/17 03/25/17 03/25/17 03/26/17 03/26/17 03/26/17 07:00 15:00 23:00 07:00 15:00 23:00 Intake Total 100 ml 74 ml 224 ml 110 ml Balance 100 ml 74 ml 224 ml 110 ml Intake Oral 120 ml IV Total 100 ml 74 ml 104 ml 110 ml # Voids 1 Result Diagram: 03/26/17 0358 03/26/17 0358 Objective Remarks GENERAL: NAD, A&Ox3 HEAD: Normocephalic. NECK: Supple, trachea midline. No lymphadenopathy. EYES: No scleral icterus. No injection or drainage. CARDIOVASCULAR: Regular rate and rhythm without murmurs, gallops, or rubs. RESPIRATORY: Breath sounds equal bilaterally. No accessory muscle use. GASTROINTESTINAL: Abdomen soft, non-tender, nondistended. MUSCULOSKELETAL: No cyanosis, or edema. Joint tenderness at hands and wrists with palpation SKIN: Warm and dry. NEURO: No focal neurological deficitis. A/P Problem List: (1) Pulmonary embolus ICD Code: I26.99 - Other pulmonary embolism without acute cor pulmonale Status: Acute (2) Pneumonia ICD Code: J18.9 - Pneumonia, unspecified organism Status: Acute (3) Migraine headache ICD Code: G43.909 - Migraine, unspecified, not intractable, without status migrainosus Status: Acute Assessment and Plan Assessment and Plan 26 year old female admitted with a Large Saddle Pulmonary Embolus and Pneumonia. Hematology has added a hypercoagulability panel Large Saddle Pulmonary Embolus IV Heparin Follow on Tobacco Classer for symptoms Oxygen as needed No DVT of lower extremity US Hematology following, assistance appreciated Autoimmunity NOS May be rheumatoid arthritis based on history and positive rheumatoid factors NASREEN is pending I will start steroids once her acute conditions stabilize further Pneumonia (Community Acquired) Rocephin Azithromycin Probiotics Oxygen as needed DVT Prophylaxis Heparin IV Drip Problem Qualifiers (1) Pulmonary embolus: Qualified Codes: I26.92 - Saddle embolus of pulmonary artery without acute cor pulmonale (2) Pneumonia: Qualified Codes: J18.1 - Lobar pneumonia, unspecified organism Juan Qureshi MD Mar 26, 2017 14:20
[2017-03-27] VITALS: BP 102/57; PULSE 110; RESP 18; TEMP 98.2; O2SAT 100
[2017-03-27 04:00] VITALS: BP 103/58; PULSE 109; RESP 18; TEMP 98.3; O2SAT 100
[2017-03-27] MEDS: MORPHINE SULFATE 2 MG/ML INJ IV PUSH PRN ×3 (04:34→13:08)
[2017-03-27 08:00] VITALS: BP 104/61; PULSE 110; PULSE 130; RESP 18; TEMP 99; O2SAT 91
[2017-03-27 08:08] LABS: AUTOMATED NEUTROPHIL # 11.2 TH/MM3 (1.8-7.7); BASOPHIL # 0.1 TH/MM3 (0-0.2); BASOPHIL % 0.4 % (0.0-2.0); HEMATOCRIT 28.1 % (35.0-46.0); HEMO FLAGS DIFF FINAL; LYMPH % 7.9 % (9.0-44.0); MEAN CELL VOLUME 87.1 FL (80.0-100.0); MEAN CORPUSCULAR HEMOGLOBIN 28.8 PG (27.0-34.0); MONO % 5.1 % (0.0-8.0); NEUT % 86.6 % (16.0-70.0); PLATELET COUNT 153 TH/MM3 (150-450); RED BLOOD COUNT 3.23 MIL/MM3 (4.00-5.30); RED CELL DISTRIBUTION WIDTH 14.8 % (11.6-17.2); WHITE BLOOD COUNT 12.9 TH/MM3 (4.0-11.0)
[2017-03-27 08:16] LABS: APTT (PATIENT) 54.9 SEC (24.3-30.1)
[2017-03-27] MEDS: LACTOBACILLUS ACIDOPHILUS TAB PO SCH ×3 (08:22→17:06)
[2017-03-27] MEDS: ACETAMINOPHEN/HYDROcodone 325 MG/10 MG TAB PO PRN ×4 (08:22→17:07)
[2017-03-27 08:35] LABS: ALKALINE PHOSPHATASE 62 U/L (45-117); ALT (GPT) 11 U/L (10-53); ANION GAP 10 MEQ/L (5-15); AST (GOT) 20 U/L (15-37); BICARBONATE 21.3 MEQ/L (21.0-32.0); BLOOD UREA NITROGEN 22 MG/DL (7-18); CHLORIDE 100 MEQ/L (98-107); GLOMERULAR FILTRATION RATE 28 ML/MIN (>89); POTASSIUM 4.4 MEQ/L (3.5-5.1); SODIUM (NA) 131 MEQ/L (136-145); TOTAL BILIRUBIN ADULT 0.3 MG/DL (0.2-1.0)
[2017-03-27] MEDS: SODIUM CHLORIDE 0.9% FLUSH 10 ML FLUSH IV FLUSH SCH ×2 (09:00→21:00)
[2017-03-27] MEDS: ONDANSETRON HCL 4 MG/2 ML VIAL IVP PRN ×2 (09:39→14:42)
--- NOTE | 2017-03-27 10:28 | HHI.PR ---
Subjective Remarks Patient reports coughing up blood today. Trace amounts of blood are seen in mucus. Nothing to suggest acute bleed, blood may be old based on appearance. Slight downward trend in hemoglobin to 9.3 today. Objective Vital Signs Date Time Temp Pulse Resp B/P (MAP) Pulse Ox O2 Delivery O2 Flow Rate FiO2 03/27/17 08:00 99.0 110 18 104/61 (75) 91 03/27/17 04:00 Nasal Cannula 2.00 03/27/17 04:00 98.3 109 18 103/58 (73) 100 03/27/17 00:00 98.2 110 18 102/57 (72) 100 03/27/17 00:00 Nasal Cannula 2.00 03/26/17 21:40 Nasal Cannula 2.00 03/26/17 20:00 116 03/26/17 20:00 98.6 121 18 105/57 (73) 100 03/26/17 16:12 98.6 110 20 102/61 (75) 99 03/26/17 12:12 99.7 116 20 103/67 (79) 99 I/O 03/26/17 03/26/17 03/26/17 03/27/17 03/27/17 03/27/17 07:00 15:00 23:00 07:00 15:00 23:00 Intake Total 224 ml 460 ml 480 ml 435 ml Balance 224 ml 460 ml 480 ml 435 ml Intake Oral 120 ml 480 ml IV Total 104 ml 460 ml 435 ml # Voids 1 3 2 # Bowel Movements 0 Result Diagram: 03/27/17 0700 03/27/17 0700 Objective Remarks GENERAL: NAD, A&Ox3 HEAD: Normocephalic. NECK: Supple, trachea midline. No lymphadenopathy. EYES: No scleral icterus. No injection or drainage. CARDIOVASCULAR: Regular rate and rhythm without murmurs, gallops, or rubs. RESPIRATORY: Breath sounds equal bilaterally. No accessory muscle use. GASTROINTESTINAL: Abdomen soft, non-tender, nondistended. MUSCULOSKELETAL: No cyanosis, or edema. Joint tenderness at hands and wrists with palpation SKIN: Warm and dry. NEURO: No focal neurological deficitis. A/P Problem List: (1) Pulmonary embolus ICD Code: I26.99 - Other pulmonary embolism without acute cor pulmonale Status: Acute (2) Pneumonia ICD Code: J18.9 - Pneumonia, unspecified organism Status: Acute (3) Migraine headache ICD Code: G43.909 - Migraine, unspecified, not intractable, without status migrainosus Status: Acute Assessment and Plan Assessment and Plan 26 year old female admitted with a Large Saddle Pulmonary Embolus and Pneumonia. Hematology has added a hypercoagulability panel. Labs reviewed. Slight worsening anemia. Follow H&H. Continue heparin. Add steroids for autoimmunity. Large Saddle Pulmonary Embolus IV Heparin Follow on [employer] for symptoms Oxygen as needed No DVT of lower extremity US Hematology following, assistance appreciated Autoimmunity NOS May be rheumatoid arthritis based on history and positive rheumatoid factors NASREEN is pending Continue Solu-Medrol at low doses for now Pneumonia (Community Acquired) Rocephin Azithromycin Probiotics Oxygen as needed DVT Prophylaxis Heparin IV Drip Problem Qualifiers (1) Pulmonary embolus: Qualified Codes: I26.92 - Saddle embolus of pulmonary artery without acute cor pulmonale (2) Pneumonia: Qualified Codes: J18.1 - Lobar pneumonia, unspecified organism Juan Qureshi MD Mar 27, 2017 10:28
[2017-03-27] MEDS ORDERED: methylPREDNISolone SOD SUCC 40 MG/1 ML VIAL IV PUSH ONE (10:30)
[2017-03-27] MEDS: cefTRIAXone INJ 1,000 MG in SODIUM CHLORIDE 0.9% INJ 100 ML IV SCH (11:59)
[2017-03-27] MEDS: AZITHROMYCIN INJ 500 MG in SODIUM CHLOR 0.9% 250 ML INJ 250 ML IV SCH (11:59)
[2017-03-27 12:00] VITALS: BP 105/87; PULSE 104; RESP 18; TEMP 98.5; O2SAT 98
[2017-03-27 14:44] LABS: ANA SCREEN POS (NEG)
[2017-03-27 16:00] VITALS: BP 109/69; PULSE 92; RESP 18; TEMP 98; O2SAT 97
[2017-03-27] MEDS: SODIUM CHLOR 0.9% 1000 ML INJ 1,000 ML IV SCH (16:30)
[2017-03-27] MEDS: methylPREDNISolone SOD SUCC 40 MG/1 ML VIAL IV PUSH SCH (17:07)
[2017-03-27 20:00] VITALS: BP 119/75; PULSE 100; PULSE 85; PULSE 87; PULSE 94; RESP 18; TEMP 97.6; O2SAT 92
[2017-03-27] MEDS: DOCUSATE SODIUM 100 MG CAP PO SCH (21:00)
[2017-03-27] MEDS: HEPARIN-D5W 25,000 U/250 ML 250 ML IV PRN (22:10)
--- NOTE | 2017-03-27 23:39 | PD.ONC.PN ---
Subjective Subjective Remarks slight chest discomfort mild hemoptyses no heart palpitation Objective Data Date Time Temp Pulse Resp B/P (MAP) Pulse Ox O2 Delivery O2 Flow Rate FiO2 03/27/17 20:00 97.6 87 18 119/75 (90) 92 03/27/17 16:00 98.0 92 18 109/69 (82) 97 03/27/17 13:00 20 03/27/17 12:00 98.5 104 18 105/87 (93) 98 03/27/17 09:43 20 03/27/17 08:00 130 03/27/17 08:00 99.0 110 18 104/61 (75) 91 03/27/17 08:00 Nasal Cannula 2.00 03/27/17 04:00 Nasal Cannula 2.00 03/27/17 04:00 98.3 109 18 103/58 (73) 100 03/27/17 00:00 98.2 110 18 102/57 (72) 100 03/27/17 00:00 Nasal Cannula 2.00 Result Diagram: 03/27/17 0700 03/27/17 0700 Laboratory Results Laboratory Tests Test 03/27/17 07:00 White Blood Count 12.9 TH/MM3 Red Blood Count 3.23 MIL/MM3 Hemoglobin 9.3 GM/DL Hematocrit 28.1 % Mean Corpuscular Volume 87.1 FL Mean Corpuscular Hemoglobin 28.8 PG Mean Corpuscular Hemoglobin Concent 33.0 % Red Cell Distribution Width 14.8 % Platelet Count 153 TH/MM3 Mean Platelet Volume 9.6 FL Neutrophils (%) (Auto) 86.6 % Lymphocytes (%) (Auto) 7.9 % Monocytes (%) (Auto) 5.1 % Eosinophils (%) (Auto) 0.0 % Basophils (%) (Auto) 0.4 % Neutrophils # (Auto) 11.2 TH/MM3 Lymphocytes # (Auto) 1.0 TH/MM3 Monocytes # (Auto) 0.7 TH/MM3 Eosinophils # (Auto) 0.0 TH/MM3 Basophils # (Auto) 0.1 TH/MM3 CBC Comment DIFF FINAL Differential Comment Activated Partial Thromboplast Time 54.9 SEC Blood Urea Nitrogen 22 MG/DL Creatinine 2.50 MG/DL Random Glucose 78 MG/DL Total Protein 6.6 GM/DL Albumin 1.6 GM/DL Calcium Level 7.7 MG/DL Alkaline Phosphatase 62 U/L Aspartate Amino Transf (AST/SGOT) 20 U/L Alanine Aminotransferase (ALT/SGPT) 11 U/L Total Bilirubin 0.3 MG/DL Sodium Level 131 MEQ/L Potassium Level 4.4 MEQ/L Chloride Level 100 MEQ/L Carbon Dioxide Level 21.3 MEQ/L Anion Gap 10 MEQ/L Estimat Glomerular Filtration Rate 28 ML/MIN Administered Medications Medications (Trade) Dose Ordered Sig/Mara Route PRN Reason Start Time Stop Time Status Last Admin Dose Admin Sodium Chloride (NS Flush) 2 ml BID IV FLUSH 03/25/17 21:00 03/27/17 09:00 Ondansetron HCl (Zofran Inj) 4 mg Q6H PRN IVP NAUSEA OR VOMITING 03/25/17 13:30 03/27/17 14:42 Acetaminophen/ Hydrocodone Bitart ([place] 5-325 Mg) 1 tab Q4H PRN PO PAIN SCALE 3 TO 5 03/25/17 13:30 03/25/17 17:28 Acetaminophen/ Hydrocodone Bitart ([place] 10-325 Mg) 1 tab Q4H PRN PO PAIN SCALE 6 TO 10 03/25/17 13:30 03/27/17 17:07 Ceftriaxone Sodium 1000 mg/ Sodium Chloride 100 ml @ 200 mls/hr Q24H IV 03/26/17 13:00 03/27/17 11:59 Azithromycin 500 mg/Sodium Chloride 250 ml @ 250 mls/hr Q24H IV 03/26/17 13:00 03/27/17 11:59 Lactobacillus Acidophilus (Lactinex) 1 tab TID PO 03/25/17 18:00 03/27/17 17:06 Morphine Sulfate (Morphine Inj) 2 mg Q3H PRN IV PUSH breakthrough 03/26/17 00:30 03/27/17 13:08 Acetaminophen (Tylenol) 650 mg Q4H PRN PO fever 03/26/17 02:45 03/26/17 02:54 Heparin Sodium/ Dextrose 250 ml @ 10 mls/hr TITRATE PRN IV Coagulation Management 03/27/17 07:30 03/27/17 22:10 Methylprednisolone Sodium Succinate (SoluMEDROL INJ) 20 mg Q8H IV PUSH 03/27/17 18:00 03/27/17 17:07 Objective Remarks GENERAL: nad SKIN: Warm and dry. HEAD: Normocephalic. LYMPHATIC: No adenopathy. CARDIOVASCULAR: Regular rate and rhythm without murmurs. RESPIRATORY: Breath sounds equal bilaterally. No accessory muscle use. GASTROINTESTINAL: Abdomen soft, non-tender, nondistended. EXTREMITIES: No cyanosis, or edema. Assessment/Plan Problem List: (1) Pulmonary embolus ICD Codes: I26.99 - Other pulmonary embolism without acute cor pulmonale Status: Acute (2) Pneumonia ICD Codes: J18.9 - Pneumonia, unspecified organism Status: Acute Assessment 26-year-old female with a history of cholelithiasis status post cholecystectomy and no significant past medical history who presents to the emergency department with acute dyspnea and heart palpitations. 1. Acute pulmonary saddle embolism in an un-provoked situation. She has no past medical history or blood disorders or blood clots. Family history is insignificant also. Her only risk factor is tobacco abuse. There is no history of autoimmune disorders; however, her rheumatoid screen is positive. There is no history of any supplemental hormones et cetera, she has not had prolonged car travel or airline flight. - Heparin GTT - start Coumadin - Heparin should overlap coumadin for 48 hours after INR > 2 - Coumadin education - will need to establish PCP outpatient for Coumadin management 2. Pneumonia currently on antibiotics. d/w rn o/n events reviewed Problem Qualifiers (1) Pulmonary embolus: Qualified Codes: I26.92 - Saddle embolus of pulmonary artery without acute cor pulmonale (2) Pneumonia: Qualified Codes: J18.1 - Lobar pneumonia, unspecified organism Enrique Quinones MD Mar 27, 2017 23:39
[2017-03-28] VITALS (8 sets, daily range): BP systolic 108–132; BP diastolic 64–90; PULSE 72–99; RESP 16–20; TEMP 97.5–98; O2SAT 93–99
[2017-03-28] MEDS: ACETAMINOPHEN/HYDROcodone 325 MG/10 MG TAB PO PRN ×2 (00:24→20:10)
[2017-03-28] MEDS: methylPREDNISolone SOD SUCC 40 MG/1 ML VIAL IV PUSH SCH ×2 (03:05→09:06)
[2017-03-28] MEDS: SODIUM CHLOR 0.9% 1000 ML INJ 1,000 ML IV SCH ×3 (04:25→22:55)
[2017-03-28 07:13] LABS: BASOPHIL # 0.1 TH/MM3 (0-0.2); BASOPHIL % 0.5 % (0.0-2.0); HEMATOCRIT 27.5 % (35.0-46.0); HEMO FLAGS DIFF FINAL; LYMPH % 7.3 % (9.0-44.0); MEAN CELL VOLUME 85.4 FL (80.0-100.0); MEAN CORPUSCULAR HEMOGLOBIN 28.4 PG (27.0-34.0); MEAN CORPUSCULAR HGB CONC 33.2 % (32.0-36.0); MONO % 3.9 % (0.0-8.0); NEUT % 88.3 % (16.0-70.0); PLATELET COUNT 180 TH/MM3 (150-450); RED BLOOD COUNT 3.22 MIL/MM3 (4.00-5.30); RED CELL DISTRIBUTION WIDTH 14.3 % (11.6-17.2); WHITE BLOOD COUNT 13.6 TH/MM3 (4.0-11.0)
[2017-03-28 07:24] LABS: APTT (PATIENT) 45.3 SEC (24.3-30.1)
[2017-03-28 07:56] LABS: ALKALINE PHOSPHATASE 63 U/L (45-117); ALT (GPT) 13 U/L (10-53); ANION GAP 11 MEQ/L (5-15); AST (GOT) 18 U/L (15-37); BICARBONATE 20.3 MEQ/L (21.0-32.0); BLOOD UREA NITROGEN 34 MG/DL (7-18); CHLORIDE 96 MEQ/L (98-107); GLOMERULAR FILTRATION RATE 25 ML/MIN (>89); POTASSIUM 4.8 MEQ/L (3.5-5.1); SODIUM (NA) 127 MEQ/L (136-145); TOTAL BILIRUBIN ADULT 0.2 MG/DL (0.2-1.0)
[2017-03-28] MEDS: SODIUM CHLORIDE 0.9% FLUSH 10 ML FLUSH IV FLUSH SCH ×2 (09:00→20:05)
[2017-03-28] MEDS: DOCUSATE SODIUM 100 MG CAP PO SCH ×2 (09:06→20:04)
[2017-03-28] MEDS: ONDANSETRON HCL 4 MG/2 ML VIAL IVP PRN (09:06)
[2017-03-28] MEDS: LACTOBACILLUS ACIDOPHILUS TAB PO SCH ×3 (09:06→18:00)
[2017-03-28] MEDS: MAGNESIUM HYDROXIDE SUSP 30 ML CUP PO PRN (10:32)
[2017-03-28] MEDS ORDERED: PANTOPRAZOLE SOD 40 MG DELAYED RELEASE TAB PO ONE (10:45)
[2017-03-28] MEDS ORDERED: PILL SPLITTER OTHER PRN (11:00)
--- NOTE | 2017-03-28 12:09 | HHI.PR ---
Subjective Remarks Hemoglobin is 9.1 today. Worsening nausea. Yesterday nausea was present and IV hydration was started due to this and some signs of dehydration. Renal function has worsened despite IV hydration. An alternate renal etiology must be considered. Objective Vital Signs Date Time Temp Pulse Resp B/P (MAP) Pulse Ox O2 Delivery O2 Flow Rate FiO2 03/28/17 08:00 97.5 72 20 108/64 (79) 99 03/28/17 04:00 97.9 73 18 119/66 (83) 98 03/28/17 01:24 18 03/28/17 00:00 97.6 84 20 132/90 (104) 96 03/27/17 20:00 85 03/27/17 20:00 97.6 87 18 119/75 (90) 92 03/27/17 16:00 98.0 92 18 109/69 (82) 97 I/O 03/27/17 03/27/17 03/27/17 03/28/17 03/28/17 03/28/17 07:00 15:00 23:00 07:00 15:00 23:00 Intake Total 435 ml 720 ml 360 ml Balance 435 ml 720 ml 360 ml Intake Oral 720 ml 360 ml IV Total 435 ml # Voids 2 3 # Bowel Movements 0 Result Diagram: 03/28/17 0643 03/28/17 0643 Objective Remarks GENERAL: NAD, A&Ox3 HEAD: Normocephalic. NECK: Supple, trachea midline. No lymphadenopathy. EYES: No scleral icterus. No injection or drainage. CARDIOVASCULAR: Regular rate and rhythm without murmurs, gallops, or rubs. RESPIRATORY: Breath sounds equal bilaterally. No accessory muscle use. GASTROINTESTINAL: Abdomen soft, non-tender, nondistended. MUSCULOSKELETAL: No cyanosis, or edema. Joint tenderness at hands and wrists with palpation SKIN: Warm and dry. NEURO: No focal neurological deficitis. A/P Problem List: (1) Pulmonary embolus ICD Code: I26.99 - Other pulmonary embolism without acute cor pulmonale Status: Acute (2) Pneumonia ICD Code: J18.9 - Pneumonia, unspecified organism Status: Acute (3) Migraine headache ICD Code: G43.909 - Migraine, unspecified, not intractable, without status migrainosus Status: Acute Assessment and Plan Assessment and Plan 26 year old female admitted with a Large Saddle Pulmonary Embolus and Pneumonia. Hematology has added a hypercoagulability panel. Labs reviewed. Slight worsening anemia. Continue to Follow H&H. Continue heparin. Continue on steroids. Nephrology consulted. Large Saddle Pulmonary Embolus IV Heparin Follow on Client Success Specialist for symptoms Oxygen as needed No DVT of lower extremity US Hematology following, assistance appreciated Autoimmunity NOS May be rheumatoid arthritis based on history and positive rheumatoid factors NASREEN is pending Continue Solu-Medrol at low doses for now Acute kidney injury Possible dehydration Not responding to IV hydration Increase IV hydration rate Consult nephrology Nausea Increase IV hydration Continue Zofran Begin as needed Reglan If no improvement we'll consult GI Pneumonia (Community Acquired) Rocephin Azithromycin Probiotics Oxygen as needed DVT Prophylaxis Heparin IV Drip Problem Qualifiers (1) Pulmonary embolus: Qualified Codes: I26.92 - Saddle embolus of pulmonary artery without acute cor pulmonale (2) Pneumonia: Qualified Codes: J18.1 - Lobar pneumonia, unspecified organism Juan Qureshi MD Mar 28, 2017 12:08
[2017-03-28] MEDS ORDERED: METOCLOPRAMIDE HCL 10 MG/2 ML VIAL IV PUSH ONE (12:30)
[2017-03-28] MEDS: cefTRIAXone INJ 1,000 MG in SODIUM CHLORIDE 0.9% INJ 100 ML IV SCH (13:00)
[2017-03-28] MEDS: AZITHROMYCIN INJ 500 MG in SODIUM CHLOR 0.9% 250 ML INJ 250 ML IV SCH (13:00)
--- NOTE | 2017-03-28 13:08 | PD.ONC.PN ---
Subjective Subjective Remarks Afebrile overnight. Patient resting in bed. complaining of nausea. no chest pain. no abdominal pain. unable to eat d/t the nausea. Objective Data Date Time Temp Pulse Resp B/P (MAP) Pulse Ox O2 Delivery O2 Flow Rate FiO2 03/28/17 12:08 97.5 81 20 126/73 (90) 98 03/28/17 08:00 97.5 72 20 108/64 (79) 99 03/28/17 04:00 97.9 73 18 119/66 (83) 98 03/28/17 01:24 18 03/28/17 00:00 97.6 84 20 132/90 (104) 96 03/27/17 20:00 85 03/27/17 20:00 97.6 87 18 119/75 (90) 92 03/27/17 16:00 98.0 92 18 109/69 (82) 97 03/28/17 03/28/17 03/28/17 07:00 15:00 23:00 Intake Total 360 ml Balance 360 ml Result Diagram: 03/28/17 0643 03/28/17 0643 Laboratory Results Laboratory Tests Test 03/28/17 06:43 White Blood Count 13.6 TH/MM3 Red Blood Count 3.22 MIL/MM3 Hemoglobin 9.1 GM/DL Hematocrit 27.5 % Mean Corpuscular Volume 85.4 FL Mean Corpuscular Hemoglobin 28.4 PG Mean Corpuscular Hemoglobin Concent 33.2 % Red Cell Distribution Width 14.3 % Platelet Count 180 TH/MM3 Mean Platelet Volume 9.1 FL Neutrophils (%) (Auto) 88.3 % Lymphocytes (%) (Auto) 7.3 % Monocytes (%) (Auto) 3.9 % Eosinophils (%) (Auto) 0.0 % Basophils (%) (Auto) 0.5 % Neutrophils # (Auto) 12.0 TH/MM3 Lymphocytes # (Auto) 1.0 TH/MM3 Monocytes # (Auto) 0.5 TH/MM3 Eosinophils # (Auto) 0.0 TH/MM3 Basophils # (Auto) 0.1 TH/MM3 CBC Comment DIFF FINAL Differential Comment Activated Partial Thromboplast Time 45.3 SEC Blood Urea Nitrogen 34 MG/DL Creatinine 2.69 MG/DL Random Glucose 116 MG/DL Total Protein 6.6 GM/DL Albumin 1.4 GM/DL Calcium Level 8.0 MG/DL Alkaline Phosphatase 63 U/L Aspartate Amino Transf (AST/SGOT) 18 U/L Alanine Aminotransferase (ALT/SGPT) 13 U/L Total Bilirubin 0.2 MG/DL Sodium Level 127 MEQ/L Potassium Level 4.8 MEQ/L Chloride Level 96 MEQ/L Carbon Dioxide Level 20.3 MEQ/L Anion Gap 11 MEQ/L Estimat Glomerular Filtration Rate 25 ML/MIN Administered Medications Medications (Trade) Dose Ordered Sig/Mara Route PRN Reason Start Time Stop Time Status Last Admin Dose Admin Sodium Chloride (NS Flush) 2 ml BID IV FLUSH 03/25/17 21:00 03/27/17 09:00 Ondansetron HCl (Zofran Inj) 4 mg Q6H PRN IVP NAUSEA OR VOMITING 03/25/17 13:30 03/28/17 09:06 Acetaminophen/ Hydrocodone Bitart ([place] 5-325 Mg) 1 tab Q4H PRN PO PAIN SCALE 3 TO 5 03/25/17 13:30 03/25/17 17:28 Acetaminophen/ Hydrocodone Bitart ([place] 10-325 Mg) 1 tab Q4H PRN PO PAIN SCALE 6 TO 10 03/25/17 13:30 03/28/17 00:24 Ceftriaxone Sodium 1000 mg/ Sodium Chloride 100 ml @ 200 mls/hr Q24H IV 03/26/17 13:00 03/27/17 11:59 Azithromycin 500 mg/Sodium Chloride 250 ml @ 250 mls/hr Q24H IV 03/26/17 13:00 03/27/17 11:59 Lactobacillus Acidophilus (Lactinex) 1 tab TID PO 03/25/17 18:00 03/28/17 09:06 Morphine Sulfate (Morphine Inj) 2 mg Q3H PRN IV PUSH breakthrough 03/26/17 00:30 03/27/17 13:08 Acetaminophen (Tylenol) 650 mg Q4H PRN PO fever 03/26/17 02:45 03/26/17 02:54 Heparin Sodium/ Dextrose 250 ml @ 10 mls/hr TITRATE PRN IV Coagulation Management 03/27/17 07:30 03/27/17 22:10 Methylprednisolone Sodium Succinate (SoluMEDROL INJ) 20 mg Q8H IV PUSH 03/27/17 18:00 03/28/17 09:06 Docusate Sodium (Colace) 100 mg BID PO 03/27/17 21:00 03/28/17 09:06 Magnesium Hydroxide (Milk Of Magnesia Liq) 30 ml DAILY PRN PO Constipation 03/27/17 16:30 03/28/17 10:32 Objective Remarks GENERAL: Fatigued appearing young woman, supine in bed, with emesis basin next to bed. SKIN: Warm and dry. HEAD: Normocephalic. EYES: No injection or drainage. NECK: Supple, trachea midline. CARDIOVASCULAR: Regular rate and rhythm RESPIRATORY: Breath sounds equal bilaterally. No accessory muscle use. GASTROINTESTINAL: Abdomen soft, non-tender, nondistended. EXTREMITIES: No cyanosis NEUROLOGICAL: awake and alert, normal speech. Assessment/Plan Problem List: (1) Pulmonary embolus ICD Codes: I26.99 - Other pulmonary embolism without acute cor pulmonale Status: Acute (2) Pneumonia ICD Codes: J18.9 - Pneumonia, unspecified organism Status: Acute (3) Acute renal failure ICD Codes: N17.9 - Acute kidney failure, unspecified Plan: --nephrology consulted. Assessment 26-year-old female with a history of cholelithiasis status post cholecystectomy and no significant past medical history who presents to the emergency department with acute dyspnea and heart palpitations. 1. Acute pulmonary saddle embolism in an un-provoked situation. She has no past medical history or blood disorders or blood clots. Family history is insignificant also. Her only risk factor is tobacco abuse. There is no history of autoimmune disorders; however, her rheumatoid screen is positive. There is no history of any supplemental hormones et cetera, she has not had prolonged car travel or airline flight. - Heparin should overlap coumadin for 48 hours after INR > 2 - will need to establish PCP outpatient for Coumadin management \ - 03/28: continue heparin bridge to coumadin. 2. Pneumonia --on Rocephin/Zithromax 3. Nausea/Vomiting: per primary. discussed with Dr. Qureshi who plans to consult GI. 4. Acute renal insufficiency: consult nephrology. d/w Dr. Qureshi. Attending Statement The exam, history, and the medical decision-making described in the above note were completed with the assistance of the mid-level provider. I reviewed and agree with the findings presented. I attest that I had a [id number] encounter with the patient on the same day, and personally performed and documented my assessment and findings in the medical recor Problem Qualifiers (1) Pulmonary embolus: Qualified Codes: I26.92 - Saddle embolus of pulmonary artery without acute cor pulmonale (2) Pneumonia: Qualified Codes: J18.1 - Lobar pneumonia, unspecified organism Delicia Borges Mar 28, 2017 13:08 Enrique Quinones MD Mar 29, 2017 00:16
[2017-03-28] MEDS ORDERED: diphenhydrAMINE HCL 50 MG/ML VIAL IV PUSH ONE (14:00)
[2017-03-28] MEDS: WARFARIN SOD 5 MG TAB PO SCH (14:52)
[2017-03-28] MEDS ORDERED: methylPREDNISolone SOD SUCC 40 MG/1 ML VIAL IV PUSH SCH (18:00)
[2017-03-28] MEDS ORDERED: METOCLOPRAMIDE HCL 10 MG/2 ML VIAL IV PUSH PRN (20:00)
[2017-03-28] MEDS: FAMOTIDINE 20 MG TAB PO SCH (20:05)
--- NOTE | 2017-03-28 21:29 | MB ---
cc: JULIA FERNANDEZ MD DATE OF CONSULTATION 03/28/17 REASON FOR CONSULTATION Acute kidney injury with elevated BUN and creatinine. HISTORY OF PRESENT ILLNESS This is a 26-year-old female with past medical history of cholelithiasis and cholecystectomy, came to the hospital with complaint of shortness of breath. The patient was diagnosed with pulmonary embolism. I was called to see the patient because of elevated BUN and creatinine. The patient has creatinine of 0.8 on admission which increased 1.0 next day and yesterday was 2.5 and today is 2.69. The patient denies any previous history of renal disease. Her creatinine was 0.6 last month and in 2009 it was 0.9. The patient was diagnosed with pulmonary embolism by CT angiogram which was done on March 25 and seen by the hematology and the patient is currently on heparin IV. The patient has some history of dark urine, although there is no gross hematuria and she did not notice any foaming in the urine. She has mild swelling of the legs some time and also she noticed that she has a rash on face, on her cheeks, both of them which has been going on for some time. The patient has history of lupus in the family, one of her sisters has lupus and one of her aunts has lupus. She also has history of renal disease. The father has renal failure and has renal transplant. PAST MEDICAL HISTORY History of gallstone. PAST SURGICAL HISTORY Cholecystectomy. REVIEW OF SYSTEMS The patient had shortness of breath when she came in. There is no history of fever. She has chest pain at the time of shortness of breath but now her symptoms improved. She also noticed the rash on her cheek which has been going on for the last few months. There is no itching. She has nonspecific joint pains especially in her knees. She has been taking ibuprofen off and on for that. SOCIAL HISTORY The patient has history of smoking, half a pack per day. There is no history of ___ alcoholism. FAMILY HISTORY Family history is positive for lupus in one of the sisters and one of the aunts. The father has history of renal failure and has kidney transplant. The patient has one normal and according to her there was no problem during the . Her child is 9-years-old. ALLERGIES She has no known drug allergies. MEDICATIONS Currently she is on following medications: 1. Normal saline at 125 an hour. 2. Famotidine 10 milligrams b.i.d. 3. Colace 100 milligrams b.i.d. 4. Coumadin 5 milligrams daily. 5. Ceftriaxone 1 gram IV 24-hour. 6. Azithromycin 500 milligrams q. 24 hours. 7. Methylprednisone 40 milligrams q. 8 hours. 8. Lactinex 1 tablet t.i.d. 9. Zofran as needed. 10. [place] as needed. 11. Tylenol as needed. 12. Reglan as needed. PHYSICAL EXAMINATION GENERAL: The patient is awake, alert. She is not in acute distress. VITAL SIGNS: Her last blood pressure is 122/84, temperature 97.7, oxygen saturation 97-98%. HEENT: Pupils are mid constricted. Nonicteric sclera, conjunctiva pale. NECK: Supple. JVD is not elevated. LUNGS: The patient has bilateral good air entry with occasional wheezing. HEART: S1-S2, regular rhythm. ABDOMEN: Abdomen is soft, lax. There is no tenderness. Bowel sounds positive. EXTREMITIES: There is mild edema in the legs. INVESTIGATION WBC count is 13.6, hemoglobin 9.1, platelet count 180, neutrophils 88.3%, sodium is 127, potassium 4.8, chloride 96, bicarb 20.3, BUN 34, creatinine 2.69, calcium 8.0. AST, ALT normal. Total protein 6.6 with albumin of 1.4. INR is 45.3. Urinalysis done previously in 2009 has some proteinuria. Her rheumatoid factor was positive with a titer of 20.6. NASREEN is positive. NASREEN titer is pending. IMAGING STUDIES The patient has ultrasound of the lower extremities done which showed that she has prominent inguinal lymph nodes bilaterally, otherwise, negative Doppler sonogram for DVT. Chest x-ray was done which shows that she has right basal infiltrate. CT angiogram was done which shows pulmonary embolism with the embolism in the lobar artery of the right lower lobe. ASSESSMENT/PLAN 1. Acute kidney injury. 2. Pulmonary embolism. 3. Possible pneumonia. 4. Hypocalcemia and hypoalbuminemia. The patient has acute kidney injury and creatinine started getting worse ___ and the patient has CT angiogram done on 11, so there is a possibility of contrast nephropathy but given the history of pulmonary embolism and rash and joint pain and low albumin level needs to rule out also SLE with possibility of lupus nephritis. I will increase the methylprednisone and send anti-DNA complements and urinalysis to see if she has any proteinuria. In the meantime, I agree with continuing the IV fluid and follow the urine output and BUN and creatinine. Avoid giving nephrotoxins. If she has no improvement in the renal function and her anti-DNA is positive then she possibly will need kidney biopsy. Thank you for the consultation. I will follow the patient while she is the hospital. Julia Fernandez MD AQJ/EO /8:54 PM /9:08 PM
[2017-03-28] MEDS: methylPREDNISolone SOD SUCC 125 MG/2 ML VIAL IV SCH (22:05)
[2017-03-28 22:54] LABS: BLOOD, URINE MOD (NEG); COMMENT (UR) CULTURE INDICATED; CULTURE IF INDICATED CULTURE INDICATED; GLUCOSE,URINE NEG (NEG); KETONE, URINE NEG (NEG); MUCUS URINE FEW /lpf (OCC); NITRITE,URINE NEG (NEG); PH, URINE 5.5 (5.0-8.5); SQUAMOUS EPITHELIAL CELL URINE <1 /hpf (0-5); URINE COLOR LIGHT-YELLOW (YELLW/STRAW)
[2017-03-29] VITALS (8 sets, daily range): BP systolic 116–133; BP diastolic 70–88; PULSE 59–77; RESP 14–20; TEMP 97.1–98.2; O2SAT 93–96
[2017-03-29] MEDS: SODIUM CHLOR 0.9% 1000 ML INJ 1,000 ML IV SCH ×3 (01:05→19:24)
[2017-03-29] MEDS: ACETAMINOPHEN/HYDROcodone 325 MG/10 MG TAB PO PRN ×4 (01:45→21:10)
[2017-03-29] MEDS: HEPARIN-D5W 25,000 U/250 ML 250 ML IV PRN (05:40)
--- NOTE | 2017-03-29 08:00 | PD.ONC.PN ---
Subjective Subjective Remarks on heparin GTT on Coumadin Denies any dyspnea some pleuritic chest pain no bleeding Objective Data Date Time Temp Pulse Resp B/P (MAP) Pulse Ox O2 Delivery O2 Flow Rate FiO2 03/29/17 04:00 98.2 71 16 116/70 (85) 93 03/29/17 00:00 97.1 59 14 127/80 (96) 94 03/28/17 20:07 90 03/28/17 20:01 Room Air 03/28/17 20:00 98.0 77 16 120/77 (91) 93 03/28/17 16:00 97.7 99 20 122/84 (97) 97 03/28/17 12:08 97.5 81 20 126/73 (90) 98 03/28/17 08:02 82 03/28/17 08:00 Nasal Cannula 2.00 03/28/17 08:00 97.5 72 20 108/64 (79) 99 03/29/17 03/29/17 03/29/17 07:00 15:00 23:00 Intake Total 1846 ml Balance 1846 ml Result Diagram: 03/28/17 0643 03/28/17 0643 Laboratory Results Laboratory Tests Test 03/28/17 22:25 Urine Color LIGHT-YELLOW Urine Turbidity HAZY Urine pH 5.5 Urine Specific [place] 1.006 Urine Protein 30 mg/dL Urine Glucose (UA) NEG mg/dL Urine Ketones NEG mg/dL Urine Occult Blood MOD Urine Nitrite NEG Urine Bilirubin NEG Urine Urobilinogen LESS THAN 2.0 MG/DL Urine Leukocyte Esterase TRACE Urine RBC 6 /hpf Urine WBC 11 /hpf Urine Squamous Epithelial Cells <1 /hpf Urine Mucus FEW /lpf Microscopic Urinalysis Comment CULTURE INDICATED Culture Results Microbiology Date/Time Source Procedure Growth Status 03/28/17 22:25 Urine Clean Catch Urine Culture Pending Received Administered Medications Medications (Trade) Dose Ordered Sig/Mara Route PRN Reason Start Time Stop Time Status Last Admin Dose Admin Sodium Chloride (NS Flush) 2 ml BID IV FLUSH 03/25/17 21:00 03/28/17 09:00 Ondansetron HCl (Zofran Inj) 4 mg Q6H PRN IVP NAUSEA OR VOMITING 03/25/17 13:30 03/28/17 09:06 Acetaminophen/ Hydrocodone Bitart ([place] 5-325 Mg) 1 tab Q4H PRN PO PAIN SCALE 3 TO 5 03/25/17 13:30 03/25/17 17:28 Acetaminophen/ Hydrocodone Bitart ([place] 10-325 Mg) 1 tab Q4H PRN PO PAIN SCALE 6 TO 10 03/25/17 13:30 03/29/17 01:45 Ceftriaxone Sodium 1000 mg/ Sodium Chloride 100 ml @ 200 mls/hr Q24H IV 03/26/17 13:00 03/28/17 13:00 Azithromycin 500 mg/Sodium Chloride 250 ml @ 250 mls/hr Q24H IV 03/26/17 13:00 03/28/17 13:00 Lactobacillus Acidophilus (Lactinex) 1 tab TID PO 03/25/17 18:00 03/28/17 18:00 Morphine Sulfate (Morphine Inj) 2 mg Q3H PRN IV PUSH breakthrough 03/26/17 00:30 03/27/17 13:08 Acetaminophen (Tylenol) 650 mg Q4H PRN PO fever 03/26/17 02:45 03/26/17 02:54 Heparin Sodium/ Dextrose 250 ml @ 10 mls/hr TITRATE PRN IV Coagulation Management 03/27/17 07:30 03/29/17 05:40 Sodium Chloride 1,000 ml @ 125 mls/hr Q8H IV 03/27/17 16:30 03/29/17 01:05 Docusate Sodium (Colace) 100 mg BID PO 03/27/17 21:00 03/28/17 20:04 Magnesium Hydroxide (Milk Of [place] Liq) 30 ml DAILY PRN PO Constipation 03/27/17 16:30 03/28/17 10:32 Warfarin Sodium (Coumadin) 5 mg DAILY@1600 PO 03/28/17 16:00 03/28/17 14:52 Famotidine (Pepcid) 10 mg BID PO 03/28/17 21:00 03/28/17 20:05 Methylprednisolone Sodium Succinate (SoluMEDROL INJ) 125 mg Q12HR IV 03/28/17 21:15 03/28/17 22:05 Objective Remarks GENERAL: nad SKIN: Warm and dry. LYMPHATIC: No adenopathy. CARDIOVASCULAR: Regular rate and rhythm without murmurs. RESPIRATORY: Breath sounds equal bilaterally. No accessory muscle use. GASTROINTESTINAL: Abdomen soft, non-tender, nondistended. EXTREMITIES: No cyanosis, or edema. Assessment/Plan Problem List: (1) Pulmonary embolus ICD Codes: I26.99 - Other pulmonary embolism without acute cor pulmonale Status: Acute (2) Pneumonia ICD Codes: J18.9 - Pneumonia, unspecified organism Status: Acute (3) Acute renal failure ICD Codes: N17.9 - Acute kidney failure, unspecified Plan: --nephrology consulted. Assessment 26-year-old female with a history of cholelithiasis status post cholecystectomy and no significant past medical history who presents to the emergency department with acute dyspnea and heart palpitations. 1. Acute pulmonary saddle embolism in an un-provoked situation. She has no past medical history or blood disorders or blood clots. Family history is insignificant also. Her only risk factor is tobacco abuse. There is no history of autoimmune disorders; however, her rheumatoid screen is positive. There is no history of any supplemental hormones et cetera, she has not had prolonged car travel or airline flight. - Heparin should overlap coumadin for 48 hours after INR > 2 - will need to establish PCP outpatient for Coumadin management \ - 03/28: continue heparin bridge to coumadin. 2. Pneumonia --on Rocephin/Zithromax 3. Nausea/Vomiting: per primary. discussed with Dr. Qureshi who plans to consult GI. 4. Acute renal insufficiency: consult nephrology. d/w Dr. Qureshi. continue supportive care can be d/c'd home on Lovenox and Coumadin--if o/p follow-up is possible with PCP soon Problem Qualifiers (1) Pulmonary embolus: Qualified Codes: I26.92 - Saddle embolus of pulmonary artery without acute cor pulmonale (2) Pneumonia: Qualified Codes: J18.1 - Lobar pneumonia, unspecified organism Enrique Quinones MD Mar 29, 2017 08:00
[2017-03-29] MEDS: FAMOTIDINE 20 MG TAB PO SCH ×2 (08:34→21:07)
[2017-03-29] MEDS: DOCUSATE SODIUM 100 MG CAP PO SCH ×2 (08:34→21:07)
[2017-03-29] MEDS: methylPREDNISolone SOD SUCC 125 MG/2 ML VIAL IV SCH ×2 (08:34→21:11)
[2017-03-29] MEDS: LACTOBACILLUS ACIDOPHILUS TAB PO SCH ×3 (08:34→17:07)
[2017-03-29] MEDS: SODIUM CHLORIDE 0.9% FLUSH 10 ML FLUSH IV FLUSH SCH ×2 (09:23→21:00)
[2017-03-29 10:46] LABS: AUTOMATED NEUTROPHIL # 8.6 TH/MM3 (1.8-7.7); BASOPHIL % 0.2 % (0.0-2.0); EOSINOPHIL % 0.1 % (0.0-4.0); HEMATOCRIT 27.8 % (35.0-46.0); HEMO FLAGS DIFF FINAL; LYMPH % 9.9 % (9.0-44.0); MEAN CELL VOLUME 85.3 FL (80.0-100.0); MEAN CORPUSCULAR HEMOGLOBIN 29.2 PG (27.0-34.0); MEAN CORPUSCULAR HGB CONC 34.3 % (32.0-36.0); MONO % 3.5 % (0.0-8.0); NEUT % 86.3 % (16.0-70.0); PLATELET COUNT 192 TH/MM3 (150-450); RED BLOOD COUNT 3.26 MIL/MM3 (4.00-5.30); RED CELL DISTRIBUTION WIDTH 14.6 % (11.6-17.2)
[2017-03-29 10:53] LABS: APTT (PATIENT) 53.8 SEC (24.3-30.1); INTERNATIONAL NORMALIZED RATIO 1.1 RATIO; PROTHROMBIN TIME - PATIENT 12.1 SEC (9.8-11.6)
[2017-03-29 11:21] LABS: ALKALINE PHOSPHATASE 61 U/L (45-117); ALT (GPT) 19 U/L (10-53); ANION GAP 9 MEQ/L (5-15); AST (GOT) 25 U/L (15-37); BICARBONATE 22.8 MEQ/L (21.0-32.0); BLOOD UREA NITROGEN 35 MG/DL (7-18); CHLORIDE 106 MEQ/L (98-107); GLOMERULAR FILTRATION RATE 40 ML/MIN (>89); POTASSIUM 4.2 MEQ/L (3.5-5.1); SODIUM (NA) 138 MEQ/L (136-145); TOTAL BILIRUBIN ADULT 0.1 MG/DL (0.2-1.0)
[2017-03-29] MEDS: cefTRIAXone INJ 1,000 MG in SODIUM CHLORIDE 0.9% INJ 100 ML IV SCH (13:27)
[2017-03-29] MEDS: AZITHROMYCIN INJ 500 MG in SODIUM CHLOR 0.9% 250 ML INJ 250 ML IV SCH (14:41)
[2017-03-29] MEDS: WARFARIN SOD 5 MG TAB PO SCH (16:16)
[2017-03-29 16:33] LABS: ANA TITER QUANT >1:1280 (NEG)
--- NOTE | 2017-03-29 17:28 | HHI.PR ---
Subjective Remarks NASREEN is positive. Lupus with match patient's malar rash, GI symptoms, and joint pains. She appears to be improving today. Steroids have been increased yesterday. Hemoglobin is increased to 9.5 now. Renal function improved to 1.83. Consideration for renal biopsy is present. If renal function was improving or getting worse is medically necessary, but at this point if renal function improves or normalizes a greater risk may exist to discontinue anticoagulants at this time. Objective Vital Signs Date Time Temp Pulse Resp B/P (MAP) Pulse Ox O2 Delivery O2 Flow Rate FiO2 03/29/17 16:24 97.6 64 17 133/88 (103) 96 03/29/17 16:20 Room Air 03/29/17 13:32 Room Air 03/29/17 12:13 Room Air 03/29/17 12:11 Room Air 03/29/17 12:06 97.6 77 18 127/81 (96) 96 03/29/17 10:39 70 03/29/17 09:00 Room Air 03/29/17 08:03 97.2 66 18 118/80 (93) 95 03/29/17 04:00 98.2 71 16 116/70 (85) 93 03/29/17 00:00 97.1 59 14 127/80 (96) 94 03/28/17 20:07 90 03/28/17 20:01 Room Air 03/28/17 20:00 98.0 77 16 120/77 (91) 93 I/O 03/28/17 03/28/17 03/28/17 03/29/17 03/29/17 03/29/17 07:00 15:00 23:00 07:00 15:00 23:00 Intake Total 360 ml 350 ml 1846 ml Output Total 200 ml Balance 360 ml -200 ml 350 ml 1846 ml Intake Oral 360 ml IV Total 350 ml 1846 ml Emesis 200 ml # Voids 3 2 3 # Bowel Movements 0 Result Diagram: 03/29/1795003/29/17950 Objective Remarks GENERAL: NAD, A&Ox3 HEAD: Normocephalic. NECK: Supple, trachea midline. No lymphadenopathy. EYES: No scleral icterus. No injection or drainage. CARDIOVASCULAR: Regular rate and rhythm without murmurs, gallops, or rubs. RESPIRATORY: Breath sounds equal bilaterally. No accessory muscle use. GASTROINTESTINAL: Abdomen soft, non-tender, nondistended. MUSCULOSKELETAL: No cyanosis, or edema. Joint tenderness at hands and wrists with palpation SKIN: Warm and dry. NEURO: No focal neurological deficitis. A/P Problem List: (1) Pulmonary embolus ICD Code: I26.99 - Other pulmonary embolism without acute cor pulmonale Status: Acute (2) Pneumonia ICD Code: J18.9 - Pneumonia, unspecified organism Status: Acute (3) Migraine headache ICD Code: G43.909 - Migraine, unspecified, not intractable, without status migrainosus Status: Acute Assessment and Plan Assessment and Plan 26 year old female admitted with a Large Saddle Pulmonary Embolus and Pneumonia. Labs reviewed. Hemoglobin is improved. Renal function is improved. Option for renal biopsy deferred to avoid any break in anticoagulation at this point. If renal function significantly improves her normalizes, we'll consider Xarelto as an outpatient anticoagulation treatment, vs Coumadin. Large Saddle Pulmonary Embolus IV Heparin Follow on [employer] for symptoms Oxygen as needed No DVT of lower extremity US Hematology following, assistance appreciated Autoimmunity NOS May be rheumatoid arthritis based on history and positive rheumatoid factors NASREEN is pending Continue Solu-Medrol at low doses for now Acute kidney injury Possible dehydration Not responding to IV hydration Increase IV hydration rate Consult nephrology Nausea Increase IV hydration Continue Zofran Begin as needed Reglan If no improvement we'll consult GI Pneumonia (Community Acquired) Rocephin Azithromycin Probiotics Oxygen as needed DVT Prophylaxis Heparin IV Drip Problem Qualifiers (1) Pulmonary embolus: Qualified Codes: I26.92 - Saddle embolus of pulmonary artery without acute cor pulmonale (2) Pneumonia: Qualified Codes: J18.1 - Lobar pneumonia, unspecified organism Juan Qureshi MD Mar 29, 2017 17:27
--- NOTE | 2017-03-29 18:27 | HHI.NPPN ---
Subjective History of Present Illness 26-year-old female with past medical history of cholelithiasis and cholecystectomy, came to the hospital with complaint of shortness of breath. The patient was diagnosed with pulmonary embolism. I was called to see the patient because of elevated BUN and creatinine. Additional Remarks Patient is alert, feeling better, breathing improve. Review of Systems General Constitutional: Fatigue Respiratory Lungs: SOB, Cough Cardiovascular Cardiac: ZUÑIGA Objective Data Data 03/29/17 03/30/17 19:00 07:00 Intake Total 480 ml Balance 480 ml Intake Oral 480 ml # Voids 3 # Bowel Movements 1 Vital Signs Date Time Temp Pulse Resp B/P (MAP) Pulse Ox O2 Delivery O2 Flow Rate FiO2 03/29/17 16:24 97.6 64 17 133/88 (103) 96 03/29/17 16:20 Room Air 03/29/17 13:32 Room Air 03/29/17 12:13 Room Air 03/29/17 12:11 Room Air 03/29/17 12:06 97.6 77 18 127/81 (96) 96 03/29/17 10:39 70 03/29/17 09:00 Room Air 03/29/17 08:03 97.2 66 18 118/80 (93) 95 03/29/17 04:00 98.2 71 16 116/70 (85) 93 03/29/17 00:00 97.1 59 14 127/80 (96) 94 03/28/17 20:07 90 03/28/17 20:01 Room Air 03/28/17 20:00 98.0 77 16 120/77 (91) 93 -: 03/29/17 0951 03/29/17 0951 Microbiology 03/28/17 Urine Culture - Preliminary, Resulted RESULTS PENDING Physical Exam General Appearance: No Acute Distress, Comfortable Eyes Eye Exam: Pupils Equal Throat Throat Exam: Oral Mucosa [place] & Moist Pulmonary Resp Exam: Breath Sounds Equal, No Distress, Rhonchi, Decreased Bases Cardiology CV Exam: Regular, Normal Sinus Rhythm Gastrointestinal/Abdomen GI Exam: Soft, Non-Tender, Bowel Sounds Present, Non-Distended Extremeties Extremities Exam: Trace Edema Neurologic Neuro Exam: Alert, Awake, Oriented Psychiatric Psych Exam: Appropriate Responses Assessment/Plan Assessment Summary: ESTEFANY/Acute Renal Failure Problem List: (1) Pulmonary embolus ICD Codes: I26.99 - Other pulmonary embolism without acute cor pulmonale Status: Acute (2) Pneumonia ICD Codes: J18.9 - Pneumonia, unspecified organism Status: Acute (3) Migraine headache ICD Codes: G43.909 - Migraine, unspecified, not intractable, without status migrainosus Status: Acute (4) Acute renal failure ICD Codes: N17.9 - Acute kidney failure, unspecified Plan Patient has Acute kidney injury. Diagnosed with Pulmonary embolism. NASREEN is positive, and C3 is low. Now the Creatinine is improving. Possibly has Contrast Nephropathy. Anti DNA is pending. Continue solumedrol for now. Problem Qualifiers (1) Pulmonary embolus: Qualified Codes: I26.92 - Saddle embolus of pulmonary artery without acute cor pulmonale (2) Pneumonia: Qualified Codes: J18.1 - Lobar pneumonia, unspecified organism James Munroe MD Mar 29, 2017 18:27
[2017-03-30] VITALS (8 sets, daily range): BP systolic 122–144; BP diastolic 68–86; PULSE 48–76; RESP 16–17; TEMP 97.2–98.2; O2SAT 94–97
[2017-03-30] MEDS: SODIUM CHLOR 0.9% 1000 ML INJ 1,000 ML IV SCH ×2 (03:49→11:44)
[2017-03-30] MEDS: ACETAMINOPHEN/HYDROcodone 325 MG/10 MG TAB PO PRN ×4 (04:09→22:34)
[2017-03-30] MEDS: LACTOBACILLUS ACIDOPHILUS TAB PO SCH ×3 (08:42→17:08)
[2017-03-30] MEDS: methylPREDNISolone SOD SUCC 125 MG/2 ML VIAL IV SCH ×2 (08:42→20:49)
[2017-03-30] MEDS: DOCUSATE SODIUM 100 MG CAP PO SCH ×2 (08:42→20:49)
[2017-03-30] MEDS: FAMOTIDINE 20 MG TAB PO SCH ×2 (08:42→20:49)
[2017-03-30] MEDS: SODIUM CHLORIDE 0.9% FLUSH 10 ML FLUSH IV FLUSH SCH ×2 (08:44→20:49)
[2017-03-30 11:28] LABS: AUTOMATED NEUTROPHIL # 9.2 TH/MM3 (1.8-7.7); BASOPHIL % 0.2 % (0.0-2.0); HEMATOCRIT 25.4 % (35.0-46.0); LYMPH % 11.1 % (9.0-44.0); LYMPHOCYTE # 1.2 TH/MM3 (1.0-4.8); MEAN CELL VOLUME 86.4 FL (80.0-100.0); MEAN CORPUSCULAR HEMOGLOBIN 29.4 PG (27.0-34.0); MEAN CORPUSCULAR HGB CONC 34.1 % (32.0-36.0); MONO % 4.8 % (0.0-8.0); NEUT % 83.9 % (16.0-70.0); PLATELET COUNT 159 TH/MM3 (150-450); RED BLOOD COUNT 2.94 MIL/MM3 (4.00-5.30); RED CELL DISTRIBUTION WIDTH 14.4 % (11.6-17.2); WHITE BLOOD COUNT 10.9 TH/MM3 (4.0-11.0)
[2017-03-30 11:29] LABS: HEMO FLAGS AUTO DIFF
[2017-03-30 11:43] LABS: APTT (PATIENT) 47.4 SEC (24.3-30.1); INTERNATIONAL NORMALIZED RATIO 1.6 RATIO; PROTHROMBIN TIME - PATIENT 18.2 SEC (9.8-11.6)
[2017-03-30 11:55] LABS: BICARBONATE 21.6 MEQ/L (21.0-32.0); CALCIUM-PROTEIN CORRECTED 7.9 MG/DL (8.5-10.1); POTASSIUM 3.9 MEQ/L (3.5-5.1); TOTAL BILIRUBIN ADULT 0.1 MG/DL (0.2-1.0)
[2017-03-30] MEDS: cefTRIAXone INJ 1,000 MG in SODIUM CHLORIDE 0.9% INJ 100 ML IV SCH (12:01)
[2017-03-30 12:44] LABS: SCAN/DIFF AUTO DIFF CONFIRMED
[2017-03-30] MEDS: AZITHROMYCIN INJ 500 MG in SODIUM CHLOR 0.9% 250 ML INJ 250 ML IV SCH (12:55)
[2017-03-30] MEDS ORDERED: WARFARIN SOD 3 MG TAB PO SCH (16:00)
--- NOTE | 2017-03-30 17:01 | HHI.PR ---
Subjective Remarks [place] has trended down further to 8.6. As long as there is a downward trend in hemoglobin from apprehensive to switch her to longer acting oral anticoagulants. Once hemoglobin stabilizes she'll be ready for transition to by mouth anticoagulation. Joints, GI, and skin rash are improving. Respiratory status continues to improve. Renal function has improved and is currently showing a creatinine of 1.29. Objective Vital Signs Date Time Temp Pulse Resp B/P (MAP) Pulse Ox O2 Delivery O2 Flow Rate FiO2 03/30/17 15:46 56 03/30/17 14:00 Room Air 03/30/17 11:27 98.1 64 16 126/86 (99) 96 03/30/17 11:08 Room Air 03/30/17 08:53 48 03/30/17 08:45 Room Air 03/30/17 07:43 97.5 54 16 136/72 (93) 95 03/30/17 04:00 97.4 54 16 129/70 (89) 95 03/30/17 00:00 98.2 76 16 122/68 (86) 97 03/29/17 20:04 74 03/29/17 19:26 Room Air 03/29/17 19:24 97.6 67 20 132/72 (92) 96 03/29/17 18:40 Room Air I/O 03/29/17 03/29/17 03/29/17 03/30/17 03/30/17 03/30/17 07:00 15:00 23:00 07:00 15:00 23:00 Intake Total 1846 ml 1480 ml 1778 ml Balance 1846 ml 1480 ml 1778 ml Intake Oral 480 ml 360 ml IV Total 1846 ml 1000 ml 1418 ml # Voids 3 3 1 # Bowel Movements 1 0 Result Diagram: 03/30/17 1010 03/30/17 1010 Objective Remarks GENERAL: NAD, A&Ox3 HEAD: Normocephalic. NECK: Supple, trachea midline. No lymphadenopathy. EYES: No scleral icterus. No injection or drainage. CARDIOVASCULAR: Regular rate and rhythm without murmurs, gallops, or rubs. RESPIRATORY: Breath sounds equal bilaterally. No accessory muscle use. GASTROINTESTINAL: Abdomen soft, non-tender, nondistended. MUSCULOSKELETAL: No cyanosis, or edema. Joint tenderness at hands and wrists with palpation SKIN: Warm and dry. NEURO: No focal neurological deficitis. A/P Problem List: (1) Pulmonary embolus ICD Code: I26.99 - Other pulmonary embolism without acute cor pulmonale Status: Acute (2) Pneumonia ICD Code: J18.9 - Pneumonia, unspecified organism Status: Acute (3) Migraine headache ICD Code: G43.909 - Migraine, unspecified, not intractable, without status migrainosus Status: Acute Assessment and Plan Assessment and Plan 26 year old female admitted with a Large Saddle Pulmonary Embolus and Pneumonia. Labs reviewed. Hemoglobin is improved. Labs reviewed. Renal function continues to improve. Worsening hemoglobin of 8.6. Improved oral intake. Continue to monitor hemoglobin levels. Discontinue IV fluids. Large Saddle Pulmonary Embolus IV Heparin Follow on [employer] for symptoms Oxygen as needed No DVT of lower extremity US Hematology following, assistance appreciated Autoimmunity NOS May be rheumatoid arthritis based on history and positive rheumatoid factors NASREEN is pending Continue Solu-Medrol at low doses for now Acute kidney injury Possible dehydration Not responding to IV hydration Increase IV hydration rate Consult nephrology Nausea Increase IV hydration Continue Zofran Begin as needed Reglan If no improvement we'll consult GI Pneumonia (Community Acquired) Rocephin Azithromycin Probiotics Oxygen as needed DVT Prophylaxis Heparin IV Drip Problem Qualifiers (1) Pulmonary embolus: Qualified Codes: I26.92 - Saddle embolus of pulmonary artery without acute cor pulmonale (2) Pneumonia: Qualified Codes: J18.1 - Lobar pneumonia, unspecified organism Juan Qureshi MD Mar 30, 2017 17:01
--- NOTE | 2017-03-30 21:13 | HHI.NPPN ---
Subjective History of Present Illness 26-year-old female with past medical history of cholelithiasis and cholecystectomy, came to the hospital with complaint of shortness of breath. The patient was diagnosed with pulmonary embolism. I was called to see the patient because of elevated BUN and creatinine. Additional Remarks Patient is alert, feeling better, breathing improve, not on O2, feeling better. Review of Systems General Constitutional: Fatigue Respiratory Lungs: SOB, Cough Cardiovascular Cardiac: ZUÑIGA Objective Data Data 03/30/17 03/31/17 19:00 07:00 Intake Total 600 ml Balance 600 ml Intake Oral 600 ml # Voids 3 # Bowel Movements 0 Vital Signs Date Time Temp Pulse Resp B/P (MAP) Pulse Ox O2 Delivery O2 Flow Rate FiO2 03/30/17 16:03 97.8 53 17 144/80 (101) 94 03/30/17 15:46 56 03/30/17 14:00 Room Air 03/30/17 11:27 98.1 64 16 126/86 (99) 96 03/30/17 11:08 Room Air 03/30/17 08:53 48 03/30/17 08:45 Room Air 03/30/17 07:43 97.5 54 16 136/72 (93) 95 03/30/17 04:00 97.4 54 16 129/70 (89) 95 03/30/17 00:00 98.2 76 16 122/68 (86) 97 -: 03/30/17 1010 03/30/17 1010 Physical Exam General Appearance: No Acute Distress, Comfortable Eyes Eye Exam: Pupils Equal Throat Throat Exam: Oral Mucosa [place] & Moist Pulmonary Resp Exam: Breath Sounds Equal, No Distress, Rhonchi, Decreased Bases Cardiology CV Exam: Regular, Normal Sinus Rhythm Gastrointestinal/Abdomen GI Exam: Soft, Non-Tender, Bowel Sounds Present, Non-Distended Extremeties Extremities Exam: Trace Edema Neurologic Neuro Exam: Alert, Awake, Oriented Psychiatric Psych Exam: Appropriate Responses Assessment/Plan Assessment Summary: ESTEFANY/Acute Renal Failure Problem List: (1) Pulmonary embolus ICD Codes: I26.99 - Other pulmonary embolism without acute cor pulmonale Status: Acute (2) Pneumonia ICD Codes: J18.9 - Pneumonia, unspecified organism Status: Acute (3) Migraine headache ICD Codes: G43.909 - Migraine, unspecified, not intractable, without status migrainosus Status: Acute (4) Acute renal failure ICD Codes: N17.9 - Acute kidney failure, unspecified Plan Patient has Acute kidney injury. Diagnosed with Pulmonary embolism. NASREEN is positive, and C3 is low. Now the Creatinine is improving. Possibly has Contrast Nephropathy. Anti DNA is pending. Has minimal proteinuria, unlikely Lupus Nephritis. Decrease solumedrol. Problem Qualifiers (1) Pulmonary embolus: Qualified Codes: I26.92 - Saddle embolus of pulmonary artery without acute cor pulmonale (2) Pneumonia: Qualified Codes: J18.1 - Lobar pneumonia, unspecified organism James Munroe MD Mar 30, 2017 21:13
[2017-03-30] MEDS: methylPREDNISolone SOD SUCC 40 MG/1 ML VIAL IV PUSH SCH (21:15)
--- NOTE | 2017-03-30 22:03 | PD.ONC.PN ---
Subjective Subjective Remarks appears comfortable no breathing difficulty oxygen sats are good no bleeding on heparin GTT Objective Data Date Time Temp Pulse Resp B/P (MAP) Pulse Ox O2 Delivery O2 Flow Rate FiO2 03/30/17 20:00 97.2 51 16 139/80 (99) 96 03/30/17 16:03 97.8 53 17 144/80 (101) 94 03/30/17 15:46 56 03/30/17 14:00 Room Air 03/30/17 11:27 98.1 64 16 126/86 (99) 96 03/30/17 11:08 Room Air 03/30/17 08:53 48 03/30/17 08:45 Room Air 03/30/17 07:43 97.5 54 16 136/72 (93) 95 03/30/17 04:00 97.4 54 16 129/70 (89) 95 03/30/17 00:00 98.2 76 16 122/68 (86) 97 03/30/17 03/30/17 03/30/17 06:59 14:59 22:59 Intake Total 1778 ml 600 ml Balance 1778 ml 600 ml Result Diagram: 03/30/17 1010 03/30/17 1010 Laboratory Results Laboratory Tests Test 03/30/17 10:10 White Blood Count 10.9 TH/MM3 Red Blood Count 2.94 MIL/MM3 Hemoglobin 8.6 GM/DL Hematocrit 25.4 % Mean Corpuscular Volume 86.4 FL Mean Corpuscular Hemoglobin 29.4 PG Mean Corpuscular Hemoglobin Concent 34.1 % Red Cell Distribution Width 14.4 % Platelet Count 159 TH/MM3 Mean Platelet Volume 8.9 FL Neutrophils (%) (Auto) 83.9 % Lymphocytes (%) (Auto) 11.1 % Monocytes (%) (Auto) 4.8 % Eosinophils (%) (Auto) 0.0 % Basophils (%) (Auto) 0.2 % Neutrophils # (Auto) 9.2 TH/MM3 Lymphocytes # (Auto) 1.2 TH/MM3 Monocytes # (Auto) 0.5 TH/MM3 Eosinophils # (Auto) 0.0 TH/MM3 Basophils # (Auto) 0.0 TH/MM3 CBC Comment AUTO DIFF Differential Comment AUTO DIFF CONFIRMED Prothrombin Time 18.2 SEC Prothromb Time International Ratio 1.6 RATIO Activated Partial Thromboplast Time 47.4 SEC Blood Urea Nitrogen 29 MG/DL Creatinine 1.29 MG/DL Random Glucose 149 MG/DL Total Protein 5.8 GM/DL Albumin 1.4 GM/DL Calcium Level 7.2 MG/DL Alkaline Phosphatase 61 U/L Aspartate Amino Transf (AST/SGOT) 34 U/L Alanine Aminotransferase (ALT/SGPT) 27 U/L Total Bilirubin 0.1 MG/DL Sodium Level 142 MEQ/L Potassium Level 3.9 MEQ/L Chloride Level 112 MEQ/L Carbon Dioxide Level 21.6 MEQ/L Anion Gap 8 MEQ/L Estimat Glomerular Filtration Rate 60 ML/MIN Protein Corrected Calcium 7.9 MG/DL Culture Results Microbiology Date/Time Source Procedure Growth Status 03/28/17 22:25 Urine Clean Catch Urine Culture - Final NO GROWTH IN 48 HOURS. Complete Administered Medications Medications (Trade) Dose Ordered Sig/Mara Route PRN Reason Start Time Stop Time Status Last Admin Dose Admin Sodium Chloride (NS Flush) 2 ml BID IV FLUSH 03/25/17 21:00 03/30/17 20:49 Ondansetron HCl (Zofran Inj) 4 mg Q6H PRN IVP NAUSEA OR VOMITING 03/25/17 13:30 03/28/17 09:06 Acetaminophen/ Hydrocodone Bitart ([place] 5-325 Mg) 1 tab Q4H PRN PO PAIN SCALE 3 TO 5 03/25/17 13:30 03/25/17 17:28 Acetaminophen/ Hydrocodone Bitart ([place] 10-325 Mg) 1 tab Q4H PRN PO PAIN SCALE 6 TO 10 03/25/17 13:30 03/30/17 18:20 Ceftriaxone Sodium 1000 mg/ Sodium Chloride 100 ml @ 200 mls/hr Q24H IV 03/26/17 13:00 03/30/17 12:01 Azithromycin 500 mg/Sodium Chloride 250 ml @ 250 mls/hr Q24H IV 03/26/17 13:00 03/30/17 12:55 Lactobacillus Acidophilus (Lactinex) 1 tab TID PO 03/25/17 18:00 03/30/17 17:08 Morphine Sulfate (Morphine Inj) 2 mg Q3H PRN IV PUSH breakthrough 03/26/17 00:30 03/27/17 13:08 Acetaminophen (Tylenol) 650 mg Q4H PRN PO fever 03/26/17 02:45 03/26/17 02:54 Heparin Sodium/ Dextrose 250 ml @ 10 mls/hr TITRATE PRN IV Coagulation Management 03/27/17 07:30 03/29/17 05:40 Docusate Sodium (Colace) 100 mg BID PO 03/27/17 21:00 03/30/17 20:49 Magnesium Hydroxide (Milk Of Anaya Dawson) 30 ml DAILY PRN PO Constipation 03/27/17 16:30 03/28/17 10:32 Famotidine (Pepcid) 10 mg BID PO 03/28/17 21:00 03/30/17 20:49 Warfarin Sodium (Coumadin) 3 mg DAILY@1600 PO 03/30/17 16:00 03/30/17 17:08 Objective Remarks GENERAL: nad SKIN: Warm and dry. NECK: Supple, trachea midline. No JVD or lymphadenopathy. LYMPHATIC: No adenopathy. CARDIOVASCULAR: Regular rate and rhythm without murmurs. RESPIRATORY: Breath sounds equal bilaterally. No accessory muscle use. GASTROINTESTINAL: Abdomen soft, non-tender, nondistended. EXTREMITIES: No cyanosis, or edema. Assessment/Plan Problem List: (1) Pulmonary embolus ICD Codes: I26.99 - Other pulmonary embolism without acute cor pulmonale Status: Acute (2) Pneumonia ICD Codes: J18.9 - Pneumonia, unspecified organism Status: Acute (3) Acute renal failure ICD Codes: N17.9 - Acute kidney failure, unspecified Plan: --nephrology consulted. Assessment 26-year-old female with a history of cholelithiasis status post cholecystectomy and no significant past medical history who presents to the emergency department with acute dyspnea and heart palpitations. 1. Acute pulmonary saddle embolism in an un-provoked situation. She has no past medical history or blood disorders or blood clots. Family history is insignificant also. Her only risk factor is tobacco abuse. There is no history of autoimmune disorders; however, her rheumatoid screen is positive. There is no history of any supplemental hormones et cetera, she has not had prolonged car travel or airline flight. - Heparin should overlap coumadin for 48 hours after INR > 2 - will need to establish PCP outpatient for Coumadin management \ - 03/28: continue heparin bridge to Coumadin. 2. Pneumonia --on Rocephin/Zithromax 3. Nausea/Vomiting: per primary. 4. Acute renal insufficiency: consult nephrology. 5, Anemia -normocytic: Drop in hemoglobin, anemia studies, stool heme-occult, check Hb electrophoresis- May need GI evaluation if further drop in Hb, will need to stop coumadin continue supportive care ] Problem Qualifiers (1) Pulmonary embolus: Qualified Codes: I26.92 - Saddle embolus of pulmonary artery without acute cor pulmonale (2) Pneumonia: Qualified Codes: J18.1 - Lobar pneumonia, unspecified organism Enrique Quinones MD Mar 30, 2017 22:03
[2017-03-31 01:00] VITALS: BP 147/80; PULSE 51; RESP 18; TEMP 97.2; O2SAT 94
[2017-03-31 04:00] VITALS: BP 163/77; PULSE 50; RESP 18; TEMP 97.3; O2SAT 95
[2017-03-31] MEDS: ACETAMINOPHEN/HYDROcodone 325 MG/10 MG TAB PO PRN ×5 (05:58→23:19)
[2017-03-31] MEDS: SODIUM CHLORIDE 0.9% FLUSH 10 ML FLUSH IV FLUSH SCH ×2 (07:47→20:29)
[2017-03-31 07:55] LABS: AUTOMATED NEUTROPHIL # 10.2 TH/MM3 (1.8-7.7); BASOPHIL % 0.1 % (0.0-2.0); HEMATOCRIT 26.2 % (35.0-46.0); LYMPH % 12.2 % (9.0-44.0); LYMPHOCYTE # 1.5 TH/MM3 (1.0-4.8); MEAN CELL VOLUME 86.2 FL (80.0-100.0); MEAN CORPUSCULAR HEMOGLOBIN 29.3 PG (27.0-34.0); MONO % 6.1 % (0.0-8.0); NEUT % 81.6 % (16.0-70.0); PLATELET COUNT 186 TH/MM3 (150-450); RED BLOOD COUNT 3.04 MIL/MM3 (4.00-5.30); RED CELL DISTRIBUTION WIDTH 14.9 % (11.6-17.2); WHITE BLOOD COUNT 12.5 TH/MM3 (4.0-11.0)
[2017-03-31 08:00] VITALS: BP 145/80; PULSE 94; RESP 20; TEMP 97.2; O2SAT 97
[2017-03-31 08:10] LABS: ANION GAP 8 MEQ/L (5-15); AST (GOT) 35 U/L (15-37); BICARBONATE 20.2 MEQ/L (21.0-32.0); BLOOD UREA NITROGEN 28 MG/DL (7-18); CHLORIDE 112 MEQ/L (98-107); GLOMERULAR FILTRATION RATE 73 ML/MIN (>89); HEMO FLAGS AUTO DIFF; POTASSIUM 4.2 MEQ/L (3.5-5.1); SODIUM (NA) 140 MEQ/L (136-145)
[2017-03-31 08:37] LABS: ALKALINE PHOSPHATASE 63 U/L (45-117); ALT (GPT) 38 U/L (10-53); FERRITIN 399 NG/ML (8-252); TOTAL BILIRUBIN ADULT 0.1 MG/DL (0.2-1.0); TRANSFERRIN IRON PROFILE 100 MG/DL (200-360)
[2017-03-31] MEDS: LACTOBACILLUS ACIDOPHILUS TAB PO SCH ×3 (08:54→17:47)
[2017-03-31] MEDS: DOCUSATE SODIUM 100 MG CAP PO SCH ×2 (08:54→20:29)
[2017-03-31] MEDS: methylPREDNISolone SOD SUCC 40 MG/1 ML VIAL IV PUSH SCH (08:54)
[2017-03-31] MEDS: FAMOTIDINE 20 MG TAB PO SCH ×2 (08:55→20:27)
[2017-03-31 09:49] LABS: BANDS 4 % (0-6); BLASTS 1 % (0-0); METAMYELOCYTES 2 % (0-1); MYELOCYTES 3 % (0-0); NEUTROPHIL # MANUAL DIFF 11.3 TH/MM3 (1.8-7.7); POLYS (SEG NEUTROPHILS) 81 % (16-70); WBC DIFF SAMPLE 100
[2017-03-31 09:50] LABS: PLATELET ESTIMATE SMEAR NORMAL (NORMAL)
[2017-03-31 09:51] LABS: PLATELET MORPHOLOGY NORMAL (NORMAL); SCAN/DIFF FINAL DIFF MANUAL
[2017-03-31] MEDS: MAGNESIUM HYDROXIDE SUSP 30 ML CUP PO PRN (10:09)
--- NOTE | 2017-03-31 11:10 | HHI.PR ---
Subjective Remarks Threatening is now 1.08 and hemoglobin is increased to 8.9. Patient does report hemoptysis overnight she has a sample at bedside and it appears relatively fresh. No other complaints. Objective Vital Signs Date Time Temp Pulse Resp B/P (MAP) Pulse Ox O2 Delivery O2 Flow Rate FiO2 03/31/17 10:27 Room Air 03/31/17 10:25 Room Air 03/31/17 08:00 97.2 94 20 145/80 (101) 97 03/31/17 04:00 97.3 50 18 163/77 (105) 95 03/31/17 01:00 97.2 51 18 147/80 (102) 94 03/30/17 20:00 Room Air 03/30/17 20:00 97.2 51 16 139/80 (99) 96 03/30/17 16:03 97.8 53 17 144/80 (101) 94 03/30/17 15:46 56 03/30/17 14:00 Room Air 03/30/17 11:27 98.1 64 16 126/86 (99) 96 I/O 03/30/17 03/30/17 03/30/17 03/31/17 03/31/17 03/31/17 07:00 15:00 23:00 07:00 15:00 23:00 Intake Total 1778 ml 600 ml Balance 1778 ml 600 ml Intake Oral 360 ml 600 ml IV Total 1418 ml # Voids 1 3 2 # Bowel Movements 0 0 0 Result Diagram: 03/31/1758 03/31/17 0658 Objective Remarks GENERAL: NAD, A&Ox3 HEAD: Normocephalic. NECK: Supple, trachea midline. No lymphadenopathy. EYES: No scleral icterus. No injection or drainage. CARDIOVASCULAR: Regular rate and rhythm without murmurs, gallops, or rubs. RESPIRATORY: Breath sounds equal bilaterally. No accessory muscle use. GASTROINTESTINAL: Abdomen soft, non-tender, nondistended. MUSCULOSKELETAL: No cyanosis, or edema. Joint tenderness at hands and wrists with palpation SKIN: Warm and dry. NEURO: No focal neurological deficitis. A/P Problem List: (1) Pulmonary embolus ICD Code: I26.99 - Other pulmonary embolism without acute cor pulmonale Status: Acute (2) Pneumonia ICD Code: J18.9 - Pneumonia, unspecified organism Status: Acute (3) Migraine headache ICD Code: G43.909 - Migraine, unspecified, not intractable, without status migrainosus Status: Acute Assessment and Plan Assessment and Plan 26 year old female admitted with a Large Saddle Pulmonary Embolus and Pneumonia. Labs reviewed. Hemoglobin and renal function improved. Patient is apprehensive about leaving secondary to hemoptysis. Given an increase in her hemoglobin level at trial of changing to Eliquis with one more day of monitoring of hemoptysis and CBC is recommended. She will also be transitioned to by mouth treatments for all other conditions. Large Saddle Pulmonary Embolus IV Heparin Follow on Ob/Gyn for symptoms Oxygen as needed No DVT of lower extremity US Hematology following, assistance appreciated Autoimmunity NOS May be rheumatoid arthritis based on history and positive rheumatoid factors NASREEN is pending Continue Solu-Medrol at low doses for now Acute kidney injury Possible dehydration Not responding to IV hydration Increase IV hydration rate Consult nephrology Nausea Increase IV hydration Continue Zofran Begin as needed Reglan If no improvement we'll consult GI Pneumonia (Community Acquired) Rocephin Azithromycin Probiotics Oxygen as needed DVT Prophylaxis Heparin IV Drip Problem Qualifiers (1) Pulmonary embolus: Qualified Codes: I26.92 - Saddle embolus of pulmonary artery without acute cor pulmonale (2) Pneumonia: Qualified Codes: J18.1 - Lobar pneumonia, unspecified organism Juan Qureshi MD Mar 31, 2017 11:10
--- NOTE | 2017-03-31 11:11 | PD.ONC.PN ---
Subjective Subjective Remarks Afebrile overnight. Patient resting in bed in nad. Feeling much improved today. able to eat breakfast. denies blood in stool or starting menstruation. Objective Data Date Time Temp Pulse Resp B/P (MAP) Pulse Ox O2 Delivery O2 Flow Rate FiO2 03/31/17 10:27 Room Air 03/31/17 10:25 Room Air 03/31/17 08:00 97.2 94 20 145/80 (101) 97 03/31/17 04:00 97.3 50 18 163/77 (105) 95 03/31/17 01:00 97.2 51 18 147/80 (102) 94 03/30/17 20:00 Room Air 03/30/17 20:00 97.2 51 16 139/80 (99) 96 03/30/17 16:03 97.8 53 17 144/80 (101) 94 03/30/17 15:46 56 03/30/17 14:00 Room Air 03/30/17 11:27 98.1 64 16 126/86 (99) 96 Result Diagram: 03/31/17 0658 03/31/17 0658 Laboratory Results Laboratory Tests Test 03/31/17 06:56 03/31/17 06:58 White Blood Count 12.5 TH/MM3 Red Blood Count 3.04 MIL/MM3 Hemoglobin 8.9 GM/DL Hematocrit 26.2 % Mean Corpuscular Volume 86.2 FL Mean Corpuscular Hemoglobin 29.3 PG Mean Corpuscular Hemoglobin Concent 34.0 % Red Cell Distribution Width 14.9 % Platelet Count 186 TH/MM3 Mean Platelet Volume 8.5 FL Neutrophils (%) (Auto) 81.6 % Lymphocytes (%) (Auto) 12.2 % Monocytes (%) (Auto) 6.1 % Eosinophils (%) (Auto) 0.0 % Basophils (%) (Auto) 0.1 % Neutrophils # (Auto) 10.2 TH/MM3 Lymphocytes # (Auto) 1.5 TH/MM3 Monocytes # (Auto) 0.8 TH/MM3 Eosinophils # (Auto) 0.0 TH/MM3 Basophils # (Auto) 0.0 TH/MM3 CBC Comment AUTO DIFF Differential Total Cells Counted 100 Neutrophils % (Manual) 81 % Band Neutrophils % 4 % Lymphocytes % 4 % Monocytes % 5 % Neutrophils # (Manual) 11.3 TH/MM3 Metamyelocytes 2 % Myelocytes 3 % Differential Comment FINAL DIFF MANUAL Blastocytes 1 % Platelet Estimate NORMAL Platelet Morphology Comment NORMAL Red Cell Morphology Comment NORMAL Blood Urea Nitrogen 28 MG/DL Creatinine 1.08 MG/DL Random Glucose 98 MG/DL Total Protein 5.9 GM/DL Albumin 1.5 GM/DL Calcium Level 7.6 MG/DL Alkaline Phosphatase 63 U/L Aspartate Amino Transf (AST/SGOT) 35 U/L Alanine Aminotransferase (ALT/SGPT) 38 U/L Total Bilirubin 0.1 MG/DL Sodium Level 140 MEQ/L Potassium Level 4.2 MEQ/L Chloride Level 112 MEQ/L Carbon Dioxide Level 20.2 MEQ/L Anion Gap 8 MEQ/L Estimat Glomerular Filtration Rate 73 ML/MIN Iron Level 109 MCG/DL Total Iron Binding Capacity 140 MCG/DL Percent Iron Saturation 77.9 % Ferritin 399 NG/ML Vitamin B12 Level 674 PG/ML Culture Results Microbiology Date/Time Source Procedure Growth Status 03/28/17 22:25 Urine Clean Catch Urine Culture - Final NO GROWTH IN 48 HOURS. Complete Administered Medications Medications (Trade) Dose Ordered Sig/Mara Route PRN Reason Start Time Stop Time Status Last Admin Dose Admin Sodium Chloride (NS Flush) 2 ml BID IV FLUSH 03/25/17 21:00 03/31/17 07:47 Ondansetron HCl (Zofran Inj) 4 mg Q6H PRN IVP NAUSEA OR VOMITING 03/25/17 13:30 03/28/17 09:06 Acetaminophen/ Hydrocodone Bitart ([place] 5-325 Mg) 1 tab Q4H PRN PO PAIN SCALE 3 TO 5 03/25/17 13:30 03/25/17 17:28 Acetaminophen/ Hydrocodone Bitart ([place] 10-325 Mg) 1 tab Q4H PRN PO PAIN SCALE 6 TO 10 03/25/17 13:30 03/31/17 10:09 Ceftriaxone Sodium 1000 mg/ Sodium Chloride 100 ml @ 200 mls/hr Q24H IV 03/26/17 13:00 03/30/17 12:01 Azithromycin 500 mg/Sodium Chloride 250 ml @ 250 mls/hr Q24H IV 03/26/17 13:00 03/30/17 12:55 Lactobacillus Acidophilus (Lactinex) 1 tab TID PO 03/25/17 18:00 03/31/17 08:54 Morphine Sulfate (Morphine Inj) 2 mg Q3H PRN IV PUSH breakthrough 03/26/17 00:30 03/27/17 13:08 Acetaminophen (Tylenol) 650 mg Q4H PRN PO fever 03/26/17 02:45 03/26/17 02:54 Heparin Sodium/ Dextrose 250 ml @ 10 mls/hr TITRATE PRN IV Coagulation Management 03/27/17 07:30 03/29/17 05:40 Docusate Sodium (Colace) 100 mg BID PO 03/27/17 21:00 03/31/17 08:54 Magnesium Hydroxide (Milk Of Anaya Lisherri) 30 ml DAILY PRN PO Constipation 03/27/17 16:30 03/31/17 10:09 Famotidine (Pepcid) 10 mg BID PO 03/28/17 21:00 03/31/17 08:55 Warfarin Sodium (Coumadin) 3 mg DAILY@1600 PO 03/30/17 16:00 03/30/17 17:08 Methylprednisolone Sodium Succinate (SoluMEDROL INJ) 40 mg Q12HR IV PUSH 03/30/17 21:15 03/31/17 08:54 Objective Remarks GENERAL: Young woman, sitting up in bed in [facility]. SKIN: Warm and dry. HEAD: Normocephalic. EYES: No injection or drainage. NECK: Supple, trachea midline. CARDIOVASCULAR: Regular rate and rhythm RESPIRATORY: Breath sounds equal bilaterally. No accessory muscle use. GASTROINTESTINAL: Abdomen soft, non-tender, nondistended. EXTREMITIES: No cyanosis NEUROLOGICAL: awake and alert, normal speech. Assessment/Plan Problem List: (1) Pulmonary embolus ICD Codes: I26.99 - Other pulmonary embolism without acute cor pulmonale Status: Acute (2) Pneumonia ICD Codes: J18.9 - Pneumonia, unspecified organism Status: Acute (3) Acute renal failure ICD Codes: N17.9 - Acute kidney failure, unspecified Plan: --nephrology consulted. Assessment 26-year-old female with a history of cholelithiasis status post cholecystectomy and no significant past medical history who presents to the emergency department with acute dyspnea and heart palpitations. 1. Acute pulmonary saddle embolism in an un-provoked situation. She has no past medical history or blood disorders or blood clots. Family history is insignificant also. Her only risk factor is tobacco abuse. There is no history of autoimmune disorders; however, her rheumatoid screen is positive. There is no history of any supplemental hormones et cetera, she has not had prolonged car travel or airline flight. - Heparin should overlap coumadin for 48 hours after INR > 2 - will need to establish PCP outpatient for Coumadin management - 03/31: monitor INR. continue heparin and coumadin until INR is greater than 2.0 for 24 hours. 2. Pneumonia --on Rocephin/Zithromax 3. Nausea/Vomiting: per primary. 4. Acute renal insufficiency: improving. nephrology following. 5, Anemia -normocytic: 03/31: hgb stable today. continue to monitor closely . --if further drop in Hb, will need to stop coumadin. will obtain stool Hemoccult Attending Statement The exam, history, and the medical decision-making described in the above note were completed with the assistance of the mid-level provider. I reviewed and agree with the findings presented. I attest that I had a [id number] encounter with the patient on the same day, and personally performed and documented my assessment and findings in the medical record Hb8.9 Heme-stool occult pending INR 2.7 continue heparin for another 24 hours if Hb drops further will need to stop anticoagulation and GI assessment will be needed d/w rn o/n events reviewed Problem Qualifiers (1) Pulmonary embolus: Qualified Codes: I26.92 - Saddle embolus of pulmonary artery without acute cor pulmonale (2) Pneumonia: Qualified Codes: J18.1 - Lobar pneumonia, unspecified organism Delicia Borges Mar 31, 2017 11:11 Enrique Quinones MD Mar 31, 2017 21:40
[2017-03-31 12:00] VITALS: BP 152/90; PULSE 53; RESP 20; TEMP 98.1; O2SAT 97
[2017-03-31] MEDS: cefTRIAXone INJ 1,000 MG in SODIUM CHLORIDE 0.9% INJ 100 ML IV SCH (12:53)
[2017-03-31] MEDS: AZITHROMYCIN INJ 500 MG in SODIUM CHLOR 0.9% 250 ML INJ 250 ML IV SCH (12:54)
[2017-03-31 13:11] LABS: INTERNATIONAL NORMALIZED RATIO 2.7 RATIO; PROTHROMBIN TIME - PATIENT 31.7 SEC (9.8-11.6)
[2017-03-31 16:00] VITALS: BP 150/89; PULSE 57; RESP 20; TEMP 97.3; O2SAT 97
--- NOTE | 2017-03-31 17:16 | HHI.NPPN ---
Subjective History of Present Illness 26-year-old female with past medical history of cholelithiasis and cholecystectomy, came to the hospital with complaint of shortness of breath. The patient was diagnosed with pulmonary embolism. I was called to see the patient because of elevated BUN and creatinine. Additional Remarks Patient is alert, feeling better, breathing improve, not on O2, feeling better. Review of Systems General Constitutional: Fatigue Respiratory Lungs: SOB, Cough Cardiovascular Cardiac: ZUÑIGA Objective Data Data Vital Signs Date Time Temp Pulse Resp B/P (MAP) Pulse Ox O2 Delivery O2 Flow Rate FiO2 03/31/17 12:00 98.1 53 20 152/90 (110) 97 03/31/17 10:27 Room Air 03/31/17 10:25 Room Air 03/31/17 08:00 97.2 94 20 145/80 (101) 97 03/31/17 04:00 97.3 50 18 163/77 (105) 95 03/31/17 01:00 97.2 51 18 147/80 (102) 94 03/30/17 20:00 Room Air 03/30/17 20:00 97.2 51 16 139/80 (99) 96 -: 03/31/17 0658 03/31/17 0658 Physical Exam General Appearance: No Acute Distress, Comfortable Eyes Eye Exam: Pupils Equal Throat Throat Exam: Oral Mucosa Hallett & Moist Pulmonary Resp Exam: Breath Sounds Equal, No Distress, Rhonchi, Decreased Bases Cardiology CV Exam: Regular, Normal Sinus Rhythm Gastrointestinal/Abdomen GI Exam: Soft, Non-Tender, Bowel Sounds Present, Non-Distended Extremeties Extremities Exam: Trace Edema Neurologic Neuro Exam: Alert, Awake, Oriented Psychiatric Psych Exam: Appropriate Responses Assessment/Plan Assessment Summary: ESTEFANY/Acute Renal Failure Problem List: (1) Pulmonary embolus ICD Codes: I26.99 - Other pulmonary embolism without acute cor pulmonale Status: Acute (2) Pneumonia ICD Codes: J18.9 - Pneumonia, unspecified organism Status: Acute (3) Migraine headache ICD Codes: G43.909 - Migraine, unspecified, not intractable, without status migrainosus Status: Acute (4) Acute renal failure ICD Codes: N17.9 - Acute kidney failure, unspecified Plan Patient has Acute kidney injury. Diagnosed with Pulmonary embolism. NASREEN is positive, and C3 is low. Now the Creatinine is improving. Possibly has Contrast Nephropathy. Anti DNA is pending. Has minimal proteinuria, unlikely Lupus Nephritis. Decrease solumedrol. Problem Qualifiers (1) Pulmonary embolus: Qualified Codes: I26.92 - Saddle embolus of pulmonary artery without acute cor pulmonale (2) Pneumonia: Qualified Codes: J18.1 - Lobar pneumonia, unspecified organism Jamse Munroe MD Mar 31, 2017 17:16
[2017-03-31] MEDS: HEPARIN-D5W 25,000 U/250 ML 250 ML IV PRN (17:47)
[2017-03-31 20:00] VITALS: BP 152/68; PULSE 48; PULSE 51; RESP 20; TEMP 97.4; O2SAT 97
[2017-03-31] MEDS: predniSONE 20 MG TAB PO SCH (20:27)
[2017-03-31] MEDS: APIXABAN 5 MG TABLET PO SCH (20:28)
[2017-03-31] MEDS ORDERED: BISACODYL 10 MG SUPP RECTAL ONE (21:15)
[2017-04-01] VITALS: BP 123/75; PULSE 63; RESP 19; TEMP 98.2; O2SAT 96
[2017-04-01 04:00] VITALS: BP 138/89; PULSE 58; RESP 17; TEMP 98.2; O2SAT 94
[2017-04-01] MEDS: ACETAMINOPHEN/HYDROcodone 325 MG/10 MG TAB PO PRN (05:18)
[2017-04-01 07:33] LABS: INTERNATIONAL NORMALIZED RATIO 2.5 RATIO; PROTHROMBIN TIME - PATIENT 29.2 SEC (9.8-11.6)
[2017-04-01 07:42] LABS: AUTOMATED NEUTROPHIL # 6.6 TH/MM3 (1.8-7.7); BASOPHIL % 0.2 % (0.0-2.0); EOSINOPHIL # 0.2 TH/MM3 (0-0.4); EOSINOPHIL % 2.1 % (0.0-4.0); HEMATOCRIT 25.2 % (35.0-46.0); LYMPH % 19.6 % (9.0-44.0); LYMPHOCYTE # 1.9 TH/MM3 (1.0-4.8); MEAN CELL VOLUME 85.1 FL (80.0-100.0); MEAN CORPUSCULAR HEMOGLOBIN 29.9 PG (27.0-34.0); MEAN CORPUSCULAR HGB CONC 35.1 % (32.0-36.0); MONO % 10.5 % (0.0-8.0); NEUT % 67.6 % (16.0-70.0); PLATELET COUNT 194 TH/MM3 (150-450); RED BLOOD COUNT 2.95 MIL/MM3 (4.00-5.30); RED CELL DISTRIBUTION WIDTH 14.2 % (11.6-17.2); WHITE BLOOD COUNT 9.7 TH/MM3 (4.0-11.0)
[2017-04-01 07:47] LABS: HEMO FLAGS AUTO DIFF
[2017-04-01 08:00] VITALS: BP 137/72; PULSE 73; RESP 16; TEMP 97.9; O2SAT 96
[2017-04-01 08:03] LABS: ALT (GPT) 52 U/L (10-53); ANION GAP 8 MEQ/L (5-15); AST (GOT) 42 U/L (15-37); BICARBONATE 23.4 MEQ/L (21.0-32.0); BLOOD UREA NITROGEN 25 MG/DL (7-18); CHLORIDE 112 MEQ/L (98-107); GLOMERULAR FILTRATION RATE 98 ML/MIN (>89); POTASSIUM 3.8 MEQ/L (3.5-5.1); SODIUM (NA) 143 MEQ/L (136-145)
[2017-04-01 08:05] LABS: ALKALINE PHOSPHATASE 64 U/L (45-117); TOTAL BILIRUBIN ADULT LESS THAN 0.1 MG/DL (0.2-1.0)
[2017-04-01] MEDS: LACTOBACILLUS ACIDOPHILUS TAB PO SCH ×2 (09:00→13:00)
[2017-04-01] MEDS: SODIUM CHLORIDE 0.9% FLUSH 10 ML FLUSH IV FLUSH SCH (09:00)
[2017-04-01] MEDS: APIXABAN 5 MG TABLET PO SCH (09:00)
[2017-04-01] MEDS: DOCUSATE SODIUM 100 MG CAP PO SCH (09:22)
[2017-04-01] MEDS: predniSONE 20 MG TAB PO SCH (09:23)
[2017-04-01] MEDS: FAMOTIDINE 20 MG TAB PO SCH (09:23)
[2017-04-01 09:30] LABS: BANDS 3 % (0-6); METAMYELOCYTES 2 % (0-1); MYELOCYTES 4 % (0-0); NEUTROPHIL # MANUAL DIFF 7.8 TH/MM3 (1.8-7.7); POLYS (SEG NEUTROPHILS) 71 % (16-70); WBC DIFF SAMPLE 100
[2017-04-01 09:31] LABS: ACANTHOCYTES OCC (NORMAL); OVALOCYTES 1+ (NORMAL)
[2017-04-01 09:32] LABS: PLATELET ESTIMATE SMEAR NORMAL (NORMAL); PLATELET MORPHOLOGY NORMAL (NORMAL); SCAN/DIFF FINAL DIFF MANUAL
[2017-04-01 12:00] VITALS: BP 135/65; PULSE 60; RESP 16; TEMP 98.2; O2SAT 96
[2017-04-01] MEDS: cefTRIAXone INJ 1,000 MG in SODIUM CHLORIDE 0.9% INJ 100 ML IV SCH (12:55)
[2017-04-01] MEDS: AZITHROMYCIN INJ 500 MG in SODIUM CHLOR 0.9% 250 ML INJ 250 ML IV SCH (13:00)
[2017-04-01] MEDS ORDERED: HYDR-3516 PO (14:04)
[2017-04-01] MEDS ORDERED: AZIT250T3 PO (14:04)
[2017-04-01] MEDS ORDERED: APIX5TAB PO (14:04)
[2017-04-01] MEDS ORDERED: PRED10 PO (14:04)
--- NOTE | 2017-04-01 16:50 | HHI.DS ---
Discharge Summary Admission Date Mar 25, 2017 at 13:52 Discharge Date: Apr 01, 2017 Admitting Diagnosis pulmonary embolus. Pneumonia. (1) Pneumonia ICD Code: J18.9 - Pneumonia, unspecified organism Diagnosis: Principal Status: Acute (2) Pulmonary embolus ICD Code: I26.99 - Other pulmonary embolism without acute cor pulmonale Diagnosis: Principal Status: Acute (3) Migraine headache ICD Code: G43.909 - Migraine, unspecified, not intractable, without status migrainosus Diagnosis: Principal Status: Acute (4) Systemic lupus erythematosus ICD Code: M32.9 - Systemic lupus erythematosus, unspecified Diagnosis: Principal Procedures None Brief History - From Admission Mrs. Frank is a 26 -year-old female. She has a past medical history of cholelithiasis with cholecystectomy has resolved. No other past medical history. No history of clotting disorder in both her or her family. She has no history to suggest autoimmune conditions. She came in this morning secondary to having an acute onset of central chest pain overnight that was accompanied by shortness of breath. Imaging shows a right sided pneumonia. Additionally she has a large saddle embolus and negative lower extremity workup for DVTs. She's doing well with oxygen. Pain persists when seen. No other complaints. No changes in neurologic status. No fevers. CBC/BMP: 04/01/17 0624 04/01/17 0624 Significant Findings Laboratory Tests Test 03/30/17 10:10 03/31/17 06:56 03/31/17 06:58 03/31/17 12:45 Red Blood Count 2.94 MIL/MM3 (4.00-5.30) 3.04 MIL/MM3 (4.00-5.30) Hemoglobin 8.6 GM/DL (11.6-15.3) 8.9 GM/DL (11.6-15.3) Hematocrit 25.4 % (35.0-46.0) 26.2 % (35.0-46.0) Neutrophils (%) (Auto) 83.9 % (16.0-70.0) 81.6 % (16.0-70.0) Neutrophils # (Auto) 9.2 TH/MM3 (1.8-7.7) 10.2 TH/MM3 (1.8-7.7) Prothrombin Time 18.2 SEC (9.8-11.6) 31.7 SEC (9.8-11.6) Activated Partial Thromboplast Time 47.4 SEC (24.3-30.1) 59.0 SEC (24.3-30.1) Blood Urea Nitrogen 29 MG/DL (7-18) 28 MG/DL (7-18) Creatinine 1.29 MG/DL (0.50-1.00) 1.08 MG/DL (0.50-1.00) Random Glucose 149 MG/DL (74-106) Total Protein 5.8 GM/DL (6.4-8.2) 5.9 GM/DL (6.4-8.2) Albumin 1.4 GM/DL (3.4-5.0) 1.5 GM/DL (3.4-5.0) Calcium Level 7.2 MG/DL (8.5-10.1) 7.6 MG/DL (8.5-10.1) Total Bilirubin 0.1 MG/DL (0.2-1.0) 0.1 MG/DL (0.2-1.0) Chloride Level 112 MEQ/L (98-107) 112 MEQ/L (98-107) Estimat Glomerular Filtration Rate 60 ML/MIN (>89) 73 ML/MIN (>89) Protein Corrected Calcium 7.9 MG/DL (8.5-10.1) White Blood Count 12.5 TH/MM3 (4.0-11.0) Neutrophils % (Manual) 81 % (16-70) Lymphocytes % 4 % (9-44) Neutrophils # (Manual) 11.3 TH/MM3 (1.8-7.7) Metamyelocytes 2 % (0-1) Myelocytes 3 % (0-0) Blastocytes 1 % (0-0) Carbon Dioxide Level 20.2 MEQ/L (21.0-32.0) Total Iron Binding Capacity 140 MCG/DL (250-450) Percent Iron Saturation 77.9 % (20-50) Ferritin 399 NG/ML (8-252) Test 04/01/17 06:24 Red Blood Count 2.95 MIL/MM3 (4.00-5.30) Hemoglobin 8.8 GM/DL (11.6-15.3) Hematocrit 25.2 % (35.0-46.0) Monocytes (%) (Auto) 10.5 % (0.0-8.0) Monocytes # (Auto) 1.0 TH/MM3 (0-0.9) Neutrophils % (Manual) 71 % (16-70) Neutrophils # (Manual) 7.8 TH/MM3 (1.8-7.7) Metamyelocytes 2 % (0-1) Myelocytes 4 % (0-0) Ovalocytes 1+ (NORMAL) Acanthocytes OCC (NORMAL) Prothrombin Time 29.2 SEC (9.8-11.6) Blood Urea Nitrogen 25 MG/DL (7-18) Total Protein 5.3 GM/DL (6.4-8.2) Albumin 1.5 GM/DL (3.4-5.0) Calcium Level 7.7 MG/DL (8.5-10.1) Aspartate Amino Transf (AST/SGOT) 42 U/L (15-37) Total Bilirubin LESS THAN 0.1 MG/DL Chloride Level 112 MEQ/L (98-107) Hospital Course Mrs. Gr is a 26-year-old female. She was admitted secondary to a large saddle pulmonary embolism. She also had pneumonia and hypoxia at time of admit. Heparin IV was provided most of her stay for anticoagulation. Further history is that she had had 2 months of severe joint pains and inflammation. Autoimmune workup showed that she has systemic lupus and steroids were provided as a treatment. She has had improvement in her joint pains. Hemoptysis have been a problem on heparin which was expected to some degree given her pneumonia. At this point she has had a stabilization and improvement in her anemia despite being on blood thinners. Hemoptysis has resolved. Pneumonia is adequately treated but will be treated further given the degree of inflammation that was present in the respiratory tract. Today she is medically stable for discharge to home on Eliquis, azithromycin, prednisone, and Slaughters for pain. Pt Condition on Discharge: Stable Discharge Disposition: Discharge Home Discharge Time: <= 30 minutes Discharge Instructions DIET: Follow Instructions for: As Tolerated, No Restrictions Activities you can perform: Regular-No Restrictions Follow up Referrals: PCP Follow-up - 1 Week New Medications: Azithromycin (Azithromycin) 250 Mg Tab 250 MG PO DAILY for Infection, #5 TAB 0 Refills Prednisone (Prednisone) 10 Mg Tab 10 MG PO DAILY for Inflammation, #30 TAB 0 Refills Apixaban (Eliquis) 5 Mg Tab 5 MG PO BID for Blood Clot Prevention, #60 TAB Hydrocodone/Acetaminophen (Hydrocodone-Acetamin 5-325 mg) 5 Mg-325 Mg Tablet 1 TAB PO Q6H PRN for Pain, #40 TAB Juan Qureshi MD Apr 01, 2017 16:50
== END 2017-04-01 16:19 | disposition home or self-care (01) | DRG 175 ==
LOC: NEPE 09:59 → NEDA 13:52 → N04A 16:08
PROVIDERS: ADMIT Hospitalist; ATTEND Hospitalist
DX: I26.92 Saddle embolus of pulmonary artery without acute cor pulmonale (principal); J18.9 Pneumonia, unspecified organism; N17.9 Acute kidney failure, unspecified; M32.9 Systemic lupus erythematosus, unspecified; E88.09 Other disorders of plasma-protein metabolism, not elsewhere classified; E83.51 Hypocalcemia; E86.0 Dehydration; F17.210 Nicotine dependence, cigarettes, uncomplicated; G43.909 Migraine, unspecified, not intractable, without status migrainosus; D64.9 Anemia, unspecified; Z83.2 Family history of diseases of the blood and blood-forming organs and certain disorders involving the immune mechanism
CPT/HCPCS: 71010; 71275; 76937; 80053; 81001; 82272; 82550; 82607; 82728; 82747; 83020; 83540; 83550; 83605; 84484; 84703; 85007; 85025; 85027; 85379; 85610; 85652; 85730; 86038; 86039; 86140; 86160; 86225; 86430; 86705; 86803; 87086; 87340; 93005; 93970; J0456; J0610; J0696; J1200; J1644; J2270; J2405; J2765; J2920; J2930; J7030; J7050; J7512; Q9967

== ENCOUNTER 2017-05-07 01:59 | Emergency (ER) | payer MEDICAID, OTHER ==
[~2017-05-07] VITALS: Ht 162.6 cm; Wt 65.0 kg
[~2017-05-07 01:59] MED LIST changes: +APIX5TAB PO; +AZIT250T3 PO; +HYDR-3516 PO; -KLORCONEF PO; -MEDR4PAK PO; +PRED10 PO
[2017-05-07 02:02] VITALS: BP 141/99; PULSE 117; RESP 20; TEMP 97.9; O2SAT 100
[2017-05-07] MEDS ORDERED: PROCHLORPERAZINE INJ 10 MG/2 ML VIAL IM ONE (03:00)
[2017-05-07] MEDS ORDERED: KETOROLAC TROMETHAMINE 60 MG/2 ML (IM) VIAL IM ONE (03:00)
--- NOTE | 2017-05-07 03:07 | PD ---
HPI Chief Complaint: Headache Time Seen by Provider: 02:45 Travel History International Travel<30 days: No Contact w/Intl Traveler<30days: No Traveled to known affect area: No History of Present Illness HPI 26yo F with PMH of migraine headache, lupus, PE on eliquis presents to the ED with c/o headache for 3 days. Associated with photophobia and nausea. Said it feels like her usual headache. She gets frequent headaches. Denies any trauma , fever, chest pain, sob, abdominal pain, focal weakness or numbness or visual changes. PFSH Past Medical History Diminished Hearing: No Gastrointestinal Disorders: Yes (GB DISEASE) Medical other: Yes (lupus) Immunizations Current: Yes Tetanus Vaccination: Unknown ?: Not LMP: 02/26/2017 Past Surgical History Cholecystectomy: Yes Social History Alcohol Use: No Tobacco Use: Yes (1/2 PPD) Substance Use: No Allergies-Medications (Allergen,Severity, Reaction): Coded Allergies: No Known Allergies (Verified Adverse Reaction, Unknown, 05/07/17) Reported Meds & Prescriptions Reported Meds & Active Scripts Active Prednisone 10 Mg Tab 10 Mg PO DAILY Eliquis (Apixaban) 5 Mg Tab 5 Mg PO BID Review of Systems Except as stated in HPI: all other systems reviewed are Neg Physical Exam Narrative GENERAL: 26yo F in mild distress. SKIN: Focused skin assessment warm/dry. HEAD: Atraumatic. Normocephalic. EYES: Pupils equal and round at 3mm bilaterally. EOMI. ENT: No nasal bleeding or discharge. Mucous membranes pink and moist. NECK: Trachea midline. No JVD. CARDIOVASCULAR: Regular rate and rhythm. No murmur appreciated. RESPIRATORY: No accessory muscle use. Clear to auscultation. Breath sounds equal bilaterally. GASTROINTESTINAL: Abdomen soft, non-tender, nondistended. MUSCULOSKELETAL: No obvious deformities. No clubbing. No cyanosis. No edema. NEUROLOGICAL: Awake and alert. No obvious cranial nerve deficits. Motor grossly within normal limits. Normal speech. PSYCHIATRIC: Appropriate mood and affect; insight and judgment normal. Data Data Last Documented VS Vital Signs Date Time Temp Pulse Resp B/P (MAP) Pulse Ox O2 Delivery O2 Flow Rate FiO2 05/07/17 02:02 97.9 117 20 141/99 (113) 100 Room Air Orders Orders Prochlorperazine Inj (Compazine Inj) (05/07/17 03:00) Ketorolac Inj (Toradol Inj) (05/07/17 03:00) [facility] Medical Decision Making Medical Screen Exam Complete: Yes Emergency Medical Condition: Yes Differential Diagnosis Migraine headache vs. tension headache vs. cluster headache Narrative Course 26yo F here with 3 days of headache that feels like her usual headache. Pt has no focal neurologic deficits on exam. Denies any fever or trauma. Pt given compazine and toradol IM. Pt reevaluated at bedside and feels much better. States headache and nausea has resolved. Pt wants to go home. Return precautions given. Diagnosis Primary Impression: Migraine headache Qualified Codes: G43.909 - Migraine, unspecified, not intractable, without status migrainosus Patient Instructions: General Instructions Departure Forms: Tests/Procedures Additional Instructions: Please follow up with your primary care physician in 2-3 days. Return to the ED if symptoms worsen. Med/Other Pt SpecificInfo: Prescription(s) given Scripts Acetaminophen (Tylenol) 325 Mg Tab 650 MG PO Q6H Y for PAIN SCALE 1 TO 4, #20 TAB 0 Refills Prov: Bruna Newell DO 05/07/17 Disposition: 01 DISCHARGE HOME Condition: Stable Bruna Newell DO May 07, 2017 03:07
[2017-05-07] MEDS ORDERED: TYLE325T PO (04:34)
[2017-05-07 04:45] VITALS: PULSE 103
== END 2017-05-07 05:19 | disposition home or self-care (01) ==
LOC: NEPC 01:59
DX: G43.909 Migraine, unspecified, not intractable, without status migrainosus (principal); M32.9 Systemic lupus erythematosus, unspecified; F17.210 Nicotine dependence, cigarettes, uncomplicated
CPT/HCPCS: 96372; 99284; J0780; J1885

== ENCOUNTER 2017-10-30 15:43 | Emergency (ER) | payer OTHER ==
[~2017-10-30] VITALS: Ht 160 cm; Wt 80.0 kg
[~2017-10-30 15:43] MED LIST changes: -AZIT250T3 PO; -HYDR-3516 PO; +TYLE325T PO
[2017-10-30 16:00] VITALS: BP 121/80; PULSE 98; RESP 16; TEMP 98.2; O2SAT 98
--- NOTE | 2017-10-30 16:50 | RADRPT ---
EXAM DATE: 10/30/2017 4:48 PM EDT AGE/SEX: 26 years / Female INDICATIONS: Right sided chest pain and hemoptysis. CLINICAL DATA: This is the patient's initial encounter. Patient reports that signs and symptoms have been present for 3 days and indicates a pain score of 8/10. MEDICAL/SURGICAL HISTORY: . PEs. None. COMPARISON: No prior exams available for comparison. FINDINGS: Lungs are clear. The heart and pulmonary vascularity are normal. The portion of the bony skeleton vis ualized is unremarkable. CONCLUSION: Negative chest Electronically signed by: Cooper Dominguez MD 10/30/2017 4:49 PM EDT
[2017-10-30 17:09] LABS: AUTOMATED NEUTROPHIL # 5.8 TH/MM3 (1.8-7.7); BASOPHIL % 0.6 % (0.0-2.0); EOSINOPHIL % 0.2 % (0.0-4.0); HEMATOCRIT 35.6 % (35.0-46.0); HEMOGLOBIN 11.7 GM/DL (11.6-15.3); LYMPHOCYTE # 1.2 TH/MM3 (1.0-4.8); MEAN CELL VOLUME 92.7 FL (80.0-100.0); MEAN CORPUSCULAR HEMOGLOBIN 30.5 PG (27.0-34.0); MEAN CORPUSCULAR HGB CONC 32.8 % (32.0-36.0); MEAN PLATELET VOLUME 8.1 FL (7.0-11.0); MONO % 8.2 % (0.0-8.0); MONOCYTE # 0.6 TH/MM3 (0-0.9); PLATELET COUNT 283 TH/MM3 (150-450); RED BLOOD COUNT 3.84 MIL/MM3 (4.00-5.30); RED CELL DISTRIBUTION WIDTH 17.2 % (11.6-17.2); WHITE BLOOD COUNT 7.8 TH/MM3 (4.0-11.0)
[2017-10-30] MEDS ORDERED: IOHEXOL 350 MG/ML 10 ML VIAL (for RAD DIAG) IVCONTRAST ONE (17:10)
[2017-10-30 17:41] LABS: BICARBONATE 23.5 MEQ/L (21.0-32.0); BLOOD UREA NITROGEN 21 MG/DL (7-18); CALCIUM 7.9 MG/DL (8.5-10.1); CHLORIDE 113 MEQ/L (98-107); CREATININE 1.14 MG/DL (0.50-1.00); GLOMERULAR FILTRATION RATE 69 ML/MIN (>89); GLUCOSE,RANDOM 87 MG/DL (74-106); SODIUM (NA) 146 MEQ/L (136-145); TROPONIN I LESS THAN 0.02 NG/ML (0.02-0.05)
[2017-10-30 17:45] LABS: BANDS 5 % (0-6); LYMPHOCYTES 15 % (9-44); METAMYELOCYTES 1 % (0-1); MONOCYTES 7 % (0-8); MYELOCYTES 4 % (0-0); NEUTROPHIL # MANUAL DIFF 6.1 TH/MM3 (1.8-7.7); POLYS (SEG NEUTROPHILS) 68 % (16-70)
[2017-10-30 19:45] VITALS: BP 128/89; PULSE 80; RESP 19; O2SAT 100
--- NOTE | 2017-10-30 20:18 | PD ---
HPI Chief Complaint: Respiratory Symptoms Time Seen by Provider: 19:43 Travel History International Travel<30 days: No Contact w/Intl Traveler<30days: No Traveled to known affect area: No History of Present Illness HPI Is a 18-year-old woman with a history of lupus, multiple PEs, on warfarin, who presents emerged department right-sided chest pain shortness of breath and hemoptysis over the past 2 days or so. She was initially diagnosed of lupus and with a PE back in March 2017. 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 She has some baseline shortness of breath dyspnea on exertion is bad enough to limit her activities on a day-to-day basis. She however does not normally have chest pain. Over the past 2 days her shortness of breath is got worse and she developed this right-sided pleuritic chest pain. She developed hemoptysis during that time as well. No fevers or chills. No other associated symptoms. No other complaints. History Past Medical History Narrative Medical Gallstones Lupus PE Tetanus Vaccination: Unknown Influenza Vaccination: No Social History Alcohol Use: No Tobacco Use: No Allergies-Medications (Allergen,Severity, Reaction): Coded Allergies: No Known Allergies (Verified Adverse Reaction, Unknown, 05/07/17) Reported Meds & Prescriptions Reported Meds & Active Scripts Active Tylenol (Acetaminophen) 325 Mg Tab 650 Mg PO Q6H PRN Prednisone 10 Mg Tab 10 Mg PO DAILY Eliquis (Apixaban) 5 Mg Tab 5 Mg PO BID Review of Systems Except as stated in HPI: all other systems reviewed are Neg Physical Exam Narrative GENERAL: 18-year-old woman, no acute distress. SKIN: Focused skin assessment warm/dry. HEAD: Atraumatic. Normocephalic. EYES: Pupils equal and round. No scleral icterus. No injection or drainage. ENT: No nasal bleeding or discharge. Mucous membranes pink and moist. NECK: Trachea midline. No JVD. CARDIOVASCULAR: Regular rate and rhythm. No murmur appreciated. RESPIRATORY: No accessory muscle use. Clear to auscultation. Breath sounds equal bilaterally. GASTROINTESTINAL: Abdomen soft, non-tender, nondistended. Hepatic and splenic margins not palpable. MUSCULOSKELETAL: No obvious deformities. No clubbing. No cyanosis. No edema. NEUROLOGICAL: Awake and alert. No obvious cranial nerve deficits. Motor grossly within normal limits. Normal speech. PSYCHIATRIC: Appropriate mood and affect; insight and judgment normal. Data Data Last Documented VS Vital Signs Date Time Temp Pulse Resp B/P (MAP) Pulse Ox O2 Delivery O2 Flow Rate FiO2 10/30/17 19:45 80 19 128/89 (102) 100 Room Air 10/30/17 16:00 98.2 Orders Orders Complete Blood Count With Diff (10/30/17 16:27) Basic Metabolic Panel (Bmp) (10/30/17 16:27) Ckmb (Isoenzyme) Profile (10/30/17 16:27) Troponin I (10/30/17 16:27) Chest, Pa & Lat (10/30/17 16:27) Ct Pulmonary Angiogram (10/30/17 ) Prothrombin Time / Inr (Pt) (10/30/17 19:57) Act Partial Throm Time (Ptt) (10/30/17 19:57) Iv Access Insert/Monitor (10/30/17 19:57) Ed Urine Pregnancytest Poc (10/30/17 20:16) Morphine Inj (Morphine Inj) (10/30/17 20:45) Iohexol 350 Inj (Omnipaque 350 Inj) (10/30/17 17:10) Labs Laboratory Tests Test 10/30/17 16:45 10/30/17 20:10 White Blood Count 7.8 TH/MM3 Red Blood Count 3.84 MIL/MM3 Hemoglobin 11.7 GM/DL Hematocrit 35.6 % Mean Corpuscular Volume 92.7 FL Mean Corpuscular Hemoglobin 30.5 PG Mean Corpuscular Hemoglobin Concent 32.8 % Red Cell Distribution Width 17.2 % Platelet Count 283 TH/MM3 Mean Platelet Volume 8.1 FL Neutrophils (%) (Auto) 75.0 % Lymphocytes (%) (Auto) 16.0 % Monocytes (%) (Auto) 8.2 % Eosinophils (%) (Auto) 0.2 % Basophils (%) (Auto) 0.6 % Neutrophils # (Auto) 5.8 TH/MM3 Lymphocytes # (Auto) 1.2 TH/MM3 Monocytes # (Auto) 0.6 TH/MM3 Eosinophils # (Auto) 0.0 TH/MM3 Basophils # (Auto) 0.0 TH/MM3 CBC Comment AUTO DIFF Differential Total Cells Counted 100 Neutrophils % (Manual) 68 % Band Neutrophils % 5 % Lymphocytes % 15 % Monocytes % 7 % Neutrophils # (Manual) 6.1 TH/MM3 Metamyelocytes 1 % Myelocytes 4 % Differential Comment FINAL DIFF MANUAL Platelet Estimate NORMAL Platelet Morphology Comment NORMAL Red Cell Morphology Comment NORMAL Blood Urea Nitrogen 21 MG/DL Creatinine 1.14 MG/DL Random Glucose 87 MG/DL Calcium Level 7.9 MG/DL Sodium Level 146 MEQ/L Potassium Level 4.0 MEQ/L Chloride Level 113 MEQ/L Carbon Dioxide Level 23.5 MEQ/L Anion Gap 10 MEQ/L Estimat Glomerular Filtration Rate 69 ML/MIN Total Creatine Kinase 83 U/L Troponin I LESS THAN 0.02 NG/ML Prothrombin Time 24.4 SEC Prothromb Time International Ratio 2.4 RATIO Activated Partial Thromboplast Time 25.9 SEC [facility] Medical Decision Making Medical Screen Exam Complete: Yes Emergency Medical Condition: Yes Interpretation(s) LABS: CBC is unremarkable. BMP remarkable for mildly elevated BUN and creatinine. Troponin negative. Chest x-ray negative. CT pulmonary antrum negative. Differential Diagnosis PE, pneumonia, pleurisy, supratherapeutic INR, other Narrative Course Medical decision making 18-year-old woman on warfarin presents emerged department with pleuritic chest pain hemoptysis or shortness of breath. She has had 2 PEs, one of which despite anticoagulation. States her INR was checked 2 weeks ago and there is no change or medications recommended. Will check INR, labs, CT, reassess. 26-year-old woman no new PE, INR is therapeutic. She looks well. I do not think this is cardiac. Recommend close outpatient follow-up. Diagnosis Primary Impression: Chest pain Patient Instructions: General Instructions Additional Instructions: Follow-up with your primary physician. Continue current medications. Return to the emergency department for any new or worsening symptoms. Med/Other Pt SpecificInfo: No Change to Meds Disposition: 01 DISCHARGE HOME Condition: Stable Burt Abel MD Oct 30, 2017 20:17
[2017-10-30 20:33] LABS: INTERNATIONAL NORMALIZED RATIO 2.4 RATIO; PROTHROMBIN TIME - PATIENT 24.4 SEC (9.8-11.6)
[2017-10-30] MEDS ORDERED: MORPHINE SULFATE 4 MG/ML INJ IV PUSH ONE (20:45)
--- NOTE | 2017-10-30 21:30 | RADRPT ---
EXAM DATE: 10/30/2017 9:09 PM EDT AGE/SEX: 26 years / Female INDICATIONS: Shortness of breath today. CLINICAL DATA: This is the patient's initial encounter. Patient reports that signs and symptoms have been present for 1 day and indicates a pain score of 0/10. MEDICAL/SURGICAL HISTORY: Lupus. Cholecystectomy. RADIATION DOSE: 10.63 CTDI (mGy) COMPARISON: [facility] – [place], [place] PULMONARY ANGIOGRAM, 03/25/2017. . TECHNIQUE: Volumetric scanning was performed using a multi-row detector CT scanner during bolus infu nancy of 50 ml Omnipaque 350 (iohexol) nonionic water-soluble contrast as a single exam dose. The axel a was post processed with a variety of visualization algorithms including full volume maximum intensi ty projection and sliding thin slab reformation. Using automated exposure control and adjustment of the mA and/or kV according to patient size, radiation dose was kept as low as reasonably achievable t o obtain optimal diagnostic quality images. DICOM format image data is available electronically for review and comparison. FINDINGS: No filling defects identified to suggest pulmonary embolic disease. There is linear atelectasis or sc arring in the right lower lobe. No pleural or pericardial effusion. No hilar, mediastinal or axillary adenopathy. CONCLUSION: 1. Negative for pulmonary embolus. Minimal linear scarring or atelectasis right lower lobe. Electronically signed by: Jaden Vásquez MD 10/30/2017 9:29 PM EDT
--- NOTE | 2017-10-31 17:18 | EKG ---
Date Performed: 10/30/2017 Time Performed: 22:19:27 PTAGE: 26 years EKG: Sinus rhythm WITH SINUS ARRHYTHMIA VOLTAGE CRITERIA FOR LVH ABNORMAL ECG PREVIOUS TRACING : 03/25/2017 11.02 Since the previous tracing, no significant change noted DOCTOR: Andre Elkins Interpretating Date/Time 10/31/2017 17:16:28
== END 2017-10-30 22:49 | disposition home or self-care (01) ==
LOC: NEPK 15:43 → NEPD 22:49
DX: R07.89 Other chest pain (principal); R94.31 Abnormal electrocardiogram [ECG] [EKG]; R06.02 Shortness of breath; R04.2 Hemoptysis; R06.09 Other forms of dyspnea; M32.9 Systemic lupus erythematosus, unspecified
CPT/HCPCS: 71046; 71275; 80048; 82550; 84484; 84703; 85007; 85027; 85610; 85730; 93005; 96374; 99285; J2270; Q9967

== ENCOUNTER 2017-12-28 14:45 | Observation (INO) ==
--- NOTE | 2017-12-28 16:22 | XR ---
EXAM DATE: 12/28/2017 4:02 PM EDT AGE/SEX: 27 years / Female INDICATIONS: Dyspnea. CLINICAL DATA: This is the patient's initial encounter. Patient reports that signs and symptoms have been present for 4 - 6 days and indicates a pain score of 0/10. MEDICAL/SURGICAL HISTORY: Congestive heart failure. History of PEs. None. COMPARISON: [facility] [place]UL[place]ARY [place], 10/30/2017. . FINDINGS: There is stable minimal linear parenchymal opacity in the right lower lung zone which may be some sca rring or atelectasis. Left lung is clear. No effusion is present. Cardiomediastinal contours are stab le and satisfactory. CONCLUSION: Minimal scarring or atelectasis in the right lower lobe Electronically signed by: Sinan Muhammad MD 12/28/2017 4:21 PM EDT
[2017-12-28 16:33] LABS: Baso % (Auto) 0.2 % (0.0-2.0); Eos % (Auto) 0.2 % (0.0-4.0); Hematocrit 34.8 % (35.0-46.0); Hemoglobin 11.5 gm/dL (11.6-15.3); Lymph # (Auto) 1.1 th/mm3 (1.0-4.8); Lymph % (Auto) 10.6 % (9.0-44.0); Mean Corpuscular Hemoglobin 30.7 pg (27.0-34.0); Mean Corpuscular Volume 93.2 fL (80.0-100.0); Mean Platelet Volume 8.1 fL (7.0-11.0); Mono # (Auto) 0.3 th/mm3 (0.0-0.9); Neut # (Auto) 8.9 th/mm3 (1.8-7.7); Platelet Count 354 th/mm3 (150-450); Red Blood Count 3.74 mil/mm3 (4.00-5.30); Red Cell Distribution Width 14.1 % (11.6-17.2); White Blood Count 10.3 th/mm3 (4.0-11.0)
[2017-12-28 16:46] LABS: Activated Partial Thrombo Time 20.4 sec (24.3-30.1); INR 1.6 Ratio; Prothrombin Time 16.2 sec (9.8-11.6)
[2017-12-28 16:47] LABS: Bacteria,Urine Rare /hpf; Bilirubin,Urine Negative (Negative); Clarity,Urine Cloudy (Clear); Color,Urine Yellow (Yellw/Straw); Glucose,Urine (UA) Negative (Negative); Hyaline Casts,Urine 46 /lpf (0-3); Leukocyte Esterase,Urine Trace (Negative); Mucus,Urine Few /lpf (Occasional); Nitrite,Urine Negative (Negative); Specific Gravity,Urine 1.015 (1.002-1.035); Squamous Epithelial Cell,Urine 13 /hpf (0-5)
--- NOTE | 2017-12-28 17:06 | ED ---
HPI General Chief Complaint: Respiratory Symptoms Stated Complaint: Sob Time Seen by Provider: 12/28/17 15:41 Source: patient Mode of arrival: ambulatory Limitations: no limitations History of Present Illness The patient is a 27-year-old female who arrives with complaint of shortness of breath. States it feels like a prior pulmonary embolism did. She takes Coumadin. She reports her last INR was 1.7 about 1 week prior. She describes dyspnea on exertion. She reports decreased urination over the past few days. She reports her compliance to Lasix and spironolactone. She reports her compliance with all dietary guidelines. No cough or fever. No vomiting. Duration of symptoms has been about 4 days. She denies tobaccoism. She denies asthma. MD Complaint: shortness of breath Onset (ago): day(s) Severity: moderate Consistency/Duration: constant Relieving factors: nothing Exacerbating factors: exertion Known history of: congestive heart failure, PE and other (Lupus) Related Data Home Medications Medication Instructions Recorded Confirmed carvedilol 25 mg PO BID 12/28/17 12/28/17 chlorthalidone 25 mg PO DAILY 12/28/17 12/28/17 ergocalciferol (vitamin D2) 50,000 unit PO QWEEK 12/28/17 12/28/17 furosemide 40 mg PO DAILY 12/28/17 12/28/17 hydroxychloroquine 200 mg PO DAILY 12/28/17 12/28/17 losartan 100 mg PO HS 12/28/17 12/28/17 mycophenolate mofetil 1,500 mg PO BID 12/28/17 12/28/17 potassium chloride 10 meq PO DAILY 12/28/17 12/28/17 prednisone 5 mg PO DAILY 12/28/17 12/28/17 warfarin 2 mg PO WEEKLY 12/28/17 12/28/17 warfarin 3 mg PO DAILY 12/28/17 12/28/17 Allergies Allergy/AdvReac Type Severity Reaction Status Date / Time acetaminophen [From Percocet] Allergy Severe Itching Verified 12/28/17 18:25 oxycodone [From Percocet] Allergy Severe Itching Verified 12/28/17 18:25 Review of Systems ROS: all other systems reviewed are negative FOR[facility]LY [facility] Medical History Medical History CHF (congestive heart failure) (Acute) Lupus (systemic lupus erythematosus) (Acute) Pneumonia (Acute) Pulmonary embolism (Acute) Surgical History Surgical History H/O abdominal surgery (Acute) Hx of cholecystectomy (Acute) Family History Family History Other HTN (hypertension) Social History Social History Substance History: No History of Abuse Second Hand Smoke Exposure: No Smoking Status: Former smoker Tobacco Type: Cigarettes How Often Do You Have a Drink Containing Alcohol: Never Recent Travel in [facility] within the Last 8 Weeks: No Recent Out of Country Travel within the Last 8 Weeks: No Exam Narrative Exam Narrative: GENERAL: 27-year-old female pleasant well-nourished well- developed no acute distress SKIN: Focused skin assessment warm/dry. HEAD: Atraumatic. Normocephalic. EYES: Pupils equal and round. No scleral icterus. No injection or drainage. ENT: No nasal bleeding or discharge. Mucous membranes pink and moist. NECK: Trachea midline. No JVD. CARDIOVASCULAR: Tachycardia. Regular rhythm. RESPIRATORY: Minimal tachypnea. Coarse breath sounds bilaterally. GASTROINTESTINAL: Abdomen soft, non-tender, nondistended. Hepatic and splenic margins not palpable. MUSCULOSKELETAL: No obvious deformities. No clubbing. No cyanosis. No edema. NEUROLOGICAL: Awake and alert. No obvious cranial nerve deficits. Motor grossly within normal limits. Normal speech. PSYCHIATRIC: Appropriate mood and affect; insight and judgment normal. Course Reevaluation(s) Reevaluation #1: Patient complained of chest pain. Hydrocodone added. Nuclear medicine VQ scan added due to the acute kidney injury. Rocephin added for UTI. Time: 17:10 Initial Documented Vital Signs Temperature 97.2 F L 12/28/17 14:52 Pulse Rate 115 H 12/28/17 14:52 Respiratory Rate 20 12/28/17 14:52 Blood Pressure 102/64 12/28/17 14:52 Pulse Oximetry 99 12/28/17 14:52 Last Documented Vital Signs Temperature 97.8 F 12/31/17 12:00 Pulse Rate 99 H 12/31/17 14:23 Respiratory Rate 16 12/31/17 14:23 Blood Pressure 121/73 12/31/17 12:00 Pulse Oximetry 96 12/31/17 12:00 Medical Decision Making MDM Narrative Medical decision making narrative: Patient has had improved breathing with nebulizers here. Presentation this scenario is considered to be a combination of CHF and/or reactive airway type process. Case discussed with Dr. Bernabe. Acute Renal failure noted with Cr 2.18. Admission for same. Medical Screen Exam Complete: Yes Emergency Medical Condition: Yes Lab Data Lab results reviewed: Yes I reviewed the patient's lab results. Lab results narrative: LFTs are essentially unremarkable BNP is less than 100 Urinalysis shows UTI Result diagrams: 12/29/17 10:37 12/30/17 07:12 Lab Results 12/28/17 12/28/17 12/28/17 Range/Units 16:10 16:10 16:10 WBC 10.3 (4.0-11.0) th/mm3 RBC 3.74 L (4.00-5.30) mil/mm3 Hgb 11.5 L (11.6-15.3) gm/dL Hct 34.8 L (35.0-46.0) % MCV 93.2 (80.0-100.0) fL MCH 30.7 (27.0-34.0) pg MCHC 33.0 (32.0-36.0) % RDW 14.1 (11.6-17.2) % Plt Count 354 (150-450) th/mm3 MPV 8.1 (7.0-11.0) fL Prelim Diff (Auto) Slide review pending Neut % (Auto) 86.0 H (16.0-70.0) % Lymph % (Auto) 10.6 (9.0-44.0) % [place] % (Auto) 3.0 (0.0-8.0) % Eos % (Auto) 0.2 (0.0-4.0) % Baso % (Auto) 0.2 (0.0-2.0) % Neut # (Auto) 8.9 H (1.8-7.7) th/mm3 Lymph # (Auto) 1.1 (1.0-4.8) th/mm3 [place] # (Auto) 0.3 (0.0-0.9) th/mm3 Eos # (Auto) 0.0 (0.0-0.4) th/mm3 Baso # (Auto) 0.0 (0.0-0.2) th/mm3 WBC Differential Manual diff final Seg Neuts % (Manual) 87 H (16-70) % Band Neuts % (Manual) 3 (0-6) % Lymphocytes % (Manual) 4 L (9-44) % Monocytes % (Manual) 2 (0-8) % Metamyelocytes % (Man) 3 H (0-1) % Myelocytes % (Man) 1 H (0-0) % Abs Neuts (Manual) 9.7 H (1.8-7.7) th/mm3 Differential Comment . Platelet Estimate Normal (Normal) Platelet Morphology Normal (Normal) Tear Drop Cells (None) PT 16.2 H (9.8-11.6) sec INR 1.6 Ratio APTT 20.4 L (24.3-30.1) sec Sodium 139 (136-145) meq/L Potassium 3.7 (3.5-5.1) meq/L Chloride 108 H (98-107) meq/L Carbon Dioxide 18.6 L (21.0-32.0) meq/L Anion Gap 12 (5-15) meq/L BUN 35 H (7-18) mg/dL Creatinine 2.18 H (0.50-1.00) mg/dL Estimated GFR 32 L (>89) mL/min Random Glucose 145 H (74-106) mg/dL Calcium 8.9 (8.5-10.1) mg/dL Magnesium 1.6 (1.5-2.5) mg/dL Total Bilirubin 0.2 (0.2-1.0) mg/dL AST 22 (15-37) U/L ALT 46 (10-53) U/L Alkaline Phosphatase 72 (45-117) U/L Troponin I Less than 0.02 L (0.02-0.05) ng/mL B-Natriuretic Peptide (0-100) pg/mL Total Protein 7.3 (6.4-8.2) g/dL Albumin 3.3 L (3.4-5.0) g/dL Urine Color (Yellw/Straw) Urine Clarity (Clear) Urine pH (5.0-8.5) Ur Specific [place] (1.002-1.035) Urine Protein (Neg-Trace) mg/dL Urine Glucose (UA) (Negative) mg/dL Urine Ketones (Negative) mg/dL Urine Occult Blood (Negative) Urine Nitrate (Negative) Urine Bilirubin (Negative) Urine Urobilinogen (Less than 2) mg/dL Ur Leukocyte Esterase (Negative) Urine RBC (0-3) /hpf Urine WBC (0-5) /hpf Ur Squamous Epith Cells (0-5) /hpf Urine Bacteria (None) /hpf Hyaline Casts (0-3) /lpf Urine Mucus (Occasional) /lpf 12/28/17 12/28/17 12/29/17 Range/Units 16:10 16:15 00:38 WBC (4.0-11.0) th/mm3 RBC (4.00-5.30) mil/mm3 Hgb (11.6-15.3) gm/dL Hct (35.0-46.0) % MCV (80.0-100.0) fL MCH (27.0-34.0) pg MCHC (32.0-36.0) % RDW (11.6-17.2) % Plt Count (150-450) th/mm3 MPV (7.0-11.0) fL Prelim Diff (Auto) Neut % (Auto) (16.0-70.0) % Lymph % (Auto) (9.0-44.0) % [place] % (Auto) (0.0-8.0) % Eos % (Auto) (0.0-4.0) % Baso % (Auto) (0.0-2.0) % Neut # (Auto) (1.8-7.7) th/mm3 Lymph # (Auto) (1.0-4.8) th/mm3 [place] # (Auto) (0.0-0.9) th/mm3 Eos # (Auto) (0.0-0.4) th/mm3 Baso # (Auto) (0.0-0.2) th/mm3 WBC Differential Seg Neuts % (Manual) (16-70) % Band Neuts % (Manual) (0-6) % Lymphocytes % (Manual) (9-44) % Monocytes % (Manual) (0-8) % Metamyelocytes % (Man) (0-1) % Myelocytes % (Man) (0-0) % Abs Neuts (Manual) (1.8-7.7) th/mm3 Differential Comment Platelet Estimate (Normal) Platelet Morphology (Normal) Tear Drop Cells (None) PT (9.8-11.6) sec INR Ratio APTT (24.3-30.1) sec Sodium (136-145) meq/L Potassium (3.5-5.1) meq/L Chloride (98-107) meq/L Carbon Dioxide (21.0-32.0) meq/L Anion Gap (5-15) meq/L BUN (7-18) mg/dL Creatinine (0.50-1.00) mg/dL Estimated GFR (>89) mL/min Random Glucose (74-106) mg/dL Calcium (8.5-10.1) mg/dL Magnesium (1.5-2.5) mg/dL Total Bilirubin (0.2-1.0) mg/dL AST (15-37) U/L ALT (10-53) U/L Alkaline Phosphatase (45-117) U/L Troponin I Less than 0.02 L (0.02-0.05) ng/mL B-Natriuretic Peptide 2 (0-100) pg/mL Total Protein (6.4-8.2) g/dL Albumin (3.4-5.0) g/dL Urine Color Yellow (Yellw/Straw) Urine Clarity Cloudy H (Clear) Urine pH 5.0 (5.0-8.5) Ur Specific [place] 1.015 (1.002-1.035) Urine Protein 100 H (Neg-Trace) mg/dL Urine Glucose (UA) Negative (Negative) mg/dL Urine Ketones Negative (Negative) mg/dL Urine Occult Blood Moderate H (Negative) Urine Nitrate Negative (Negative) Urine Bilirubin Negative (Negative) Urine Urobilinogen Less than 2 (Less than 2) mg/dL Ur Leukocyte Esterase Trace H (Negative) Urine RBC 30 H (0-3) /hpf Urine WBC 7 H (0-5) /hpf Ur Squamous Epith Cells 13 (0-5) /hpf Urine Bacteria Rare H (None) /hpf Hyaline Casts 46 (0-3) /lpf Urine Mucus Few H (Occasional) /lpf 12/29/1718 12/29/17 Range/Units 10:37 10:37 10:37 WBC 8.2 (4.0-11.0) th/mm3 RBC 3.34 L (4.00-5.30) mil/mm3 Hgb 10.3 L (11.6-15.3) gm/dL Hct 30.9 L (35.0-46.0) % MCV 92.7 (80.0-100.0) fL MCH 31.0 (27.0-34.0) pg MCHC 33.4 (32.0-36.0) % RDW 13.7 (11.6-17.2) % Plt Count 307 (150-450) th/mm3 MPV 8.2 (7.0-11.0) fL Prelim Diff (Auto) Slide review pending Neut % (Auto) 82.3 H (16.0-70.0) % Lymph % (Auto) 11.9 (9.0-44.0) % [place] % (Auto) 5.2 (0.0-8.0) % Eos % (Auto) 0.0 (0.0-4.0) % Baso % (Auto) 0.6 (0.0-2.0) % Neut # (Auto) 6.8 (1.8-7.7) th/mm3 Lymph # (Auto) 1.0 (1.0-4.8) th/mm3 [place] # (Auto) 0.4 (0.0-0.9) th/mm3 Eos # (Auto) 0.0 (0.0-0.4) th/mm3 Baso # (Auto) 0.1 (0.0-0.2) th/mm3 WBC Differential Manual diff final Seg Neuts % (Manual) 74 H (16-70) % Band Neuts % (Manual) 2 (0-6) % Lymphocytes % (Manual) 11 (9-44) % Monocytes % (Manual) 7 (0-8) % Metamyelocytes % (Man) (0-1) % Myelocytes % (Man) 6 H (0-0) % Abs Neuts (Manual) 6.7 (1.8-7.7) th/mm3 Differential Comment . Platelet Estimate Normal (Normal) Platelet Morphology Normal (Normal) Tear Drop Cells 1+ H (None) PT 15.8 H (9.8-11.6) sec INR 1.6 Ratio APTT (24.3-30.1) sec Sodium 140 (136-145) meq/L Potassium 3.8 (3.5-5.1) meq/L Chloride 107 (98-107) meq/L Carbon Dioxide 19.3 L (21.0-32.0) meq/L Anion Gap 14 (5-15) meq/L BUN 35 H (7-18) mg/dL Creatinine 1.65 H (0.50-1.00) mg/dL Estimated GFR 45 L (>89) mL/min Random Glucose 137 H (74-106) mg/dL Calcium 8.9 (8.5-10.1) mg/dL Magnesium (1.5-2.5) mg/dL Total Bilirubin 0.1 L (0.2-1.0) mg/dL AST 17 (15-37) U/L ALT 42 (10-53) U/L Alkaline Phosphatase 62 (45-117) U/L Troponin I (0.02-0.05) ng/mL B-Natriuretic Peptide (0-100) pg/mL Total Protein 6.6 D (6.4-8.2) g/dL Albumin 3.0 L (3.4-5.0) g/dL Urine Color (Yellw/Straw) Urine Clarity (Clear) Urine pH (5.0-8.5) Ur Specific [place] (1.002-1.035) Urine Protein (Neg-Trace) mg/dL Urine Glucose (UA) (Negative) mg/dL Urine Ketones (Negative) mg/dL Urine Occult Blood (Negative) Urine Nitrate (Negative) Urine Bilirubin (Negative) Urine Urobilinogen (Less than 2) mg/dL Ur Leukocyte Esterase (Negative) Urine RBC (0-3) /hpf Urine WBC (0-5) /hpf Ur Squamous Epith Cells (0-5) /hpf Urine Bacteria (None) /hpf Hyaline Casts (0-3) /lpf Urine Mucus (Occasional) /lpf 12/29/17 12/30/17 12/30/17 Range/Units 10:37 07:12 07:12 WBC (4.0-11.0) th/mm3 RBC (4.00-5.30) mil/mm3 Hgb (11.6-15.3) gm/dL Hct (35.0-46.0) % MCV (80.0-100.0) fL MCH (27.0-34.0) pg MCHC (32.0-36.0) % RDW (11.6-17.2) % Plt Count (150-450) th/mm3 MPV (7.0-11.0) fL Prelim Diff (Auto) Neut % (Auto) (16.0-70.0) % Lymph % (Auto) (9.0-44.0) % [place] % (Auto) (0.0-8.0) % Eos % (Auto) (0.0-4.0) % Baso % (Auto) (0.0-2.0) % Neut # (Auto) (1.8-7.7) th/mm3 Lymph # (Auto) (1.0-4.8) th/mm3 [place] # (Auto) (0.0-0.9) th/mm3 Eos # (Auto) (0.0-0.4) th/mm3 Baso # (Auto) (0.0-0.2) th/mm3 WBC Differential Seg Neuts % (Manual) (16-70) % Band Neuts % (Manual) (0-6) % Lymphocytes % (Manual) (9-44) % Monocytes % (Manual) (0-8) % Metamyelocytes % (Man) (0-1) % Myelocytes % (Man) (0-0) % Abs Neuts (Manual) (1.8-7.7) th/mm3 Differential Comment Platelet Estimate (Normal) Platelet Morphology (Normal) Tear Drop Cells (None) PT 16.3 H (9.8-11.6) sec INR 1.6 Ratio APTT (24.3-30.1) sec Sodium 142 (136-145) meq/L Potassium 3.6 (3.5-5.1) meq/L Chloride 111 H (98-107) meq/L Carbon Dioxide 21.7 (21.0-32.0) meq/L Anion Gap 9 (5-15) meq/L BUN 31 H (7-18) mg/dL Creatinine 0.98 (0.50-1.00) mg/dL Estimated GFR 81 L (>89) mL/min Random Glucose 76 (74-106) mg/dL Calcium 8.8 (8.5-10.1) mg/dL Magnesium (1.5-2.5) mg/dL Total Bilirubin (0.2-1.0) mg/dL AST (15-37) U/L ALT (10-53) U/L Alkaline Phosphatase (45-117) U/L Troponin I Less than 0.02 L (0.02-0.05) ng/mL B-Natriuretic Peptide (0-100) pg/mL Total Protein (6.4-8.2) g/dL Albumin (3.4-5.0) g/dL Urine Color (Yellw/Straw) Urine Clarity (Clear) Urine pH (5.0-8.5) Ur Specific [place] (1.002-1.035) Urine Protein (Neg-Trace) mg/dL Urine Glucose (UA) (Negative) mg/dL Urine Ketones (Negative) mg/dL Urine Occult Blood (Negative) Urine Nitrate (Negative) Urine Bilirubin (Negative) Urine Urobilinogen (Less than 2) mg/dL Ur Leukocyte Esterase (Negative) Urine RBC (0-3) /hpf Urine WBC (0-5) /hpf Ur Squamous Epith Cells (0-5) /hpf Urine Bacteria (None) /hpf Hyaline Casts (0-3) /lpf Urine Mucus (Occasional) /lpf // Range/Units 06:19 WBC (4.0-11.0) th/mm3 RBC (4.00-5.30) mil/mm3 Hgb (11.6-15.3) gm/dL Hct (35.0-46.0) % MCV (80.0-100.0) fL MCH (27.0-34.0) pg MCHC (32.0-36.0) % RDW (11.6-17.2) % Plt Count (150-450) th/mm3 MPV (7.0-11.0) fL Prelim Diff (Auto) Neut % (Auto) (16.0-70.0) % Lymph % (Auto) (9.0-44.0) % [place] % (Auto) (0.0-8.0) % Eos % (Auto) (0.0-4.0) % Baso % (Auto) (0.0-2.0) % Neut # (Auto) (1.8-7.7) th/mm3 Lymph # (Auto) (1.0-4.8) th/mm3 [place] # (Auto) (0.0-0.9) th/mm3 Eos # (Auto) (0.0-0.4) th/mm3 Baso # (Auto) (0.0-0.2) th/mm3 WBC Differential Seg Neuts % (Manual) (16-70) % Band Neuts % (Manual) (0-6) % Lymphocytes % (Manual) (9-44) % Monocytes % (Manual) (0-8) % Metamyelocytes % (Man) (0-1) % Myelocytes % (Man) (0-0) % Abs Neuts (Manual) (1.8-7.7) th/mm3 Differential Comment Platelet Estimate (Normal) Platelet Morphology (Normal) Tear Drop Cells (None) PT 16.0 H (9.8-11.6) sec INR 1.6 Ratio APTT (24.3-30.1) sec Sodium (136-145) meq/L Potassium (3.5-5.1) meq/L Chloride (98-107) meq/L Carbon Dioxide (21.0-32.0) meq/L Anion Gap (5-15) meq/L BUN (7-18) mg/dL Creatinine (0.50-1.00) mg/dL Estimated GFR (>89) mL/min Random Glucose (74-106) mg/dL Calcium (8.5-10.1) mg/dL Magnesium (1.5-2.5) mg/dL Total Bilirubin (0.2-1.0) mg/dL AST (15-37) U/L ALT (10-53) U/L Alkaline Phosphatase (45-117) U/L Troponin I (0.02-0.05) ng/mL B-Natriuretic Peptide (0-100) pg/mL Total Protein (6.4-8.2) g/dL Albumin (3.4-5.0) g/dL Urine Color (Yellw/Straw) Urine Clarity (Clear) Urine pH (5.0-8.5) Ur Specific [place] (1.002-1.035) Urine Protein (Neg-Trace) mg/dL Urine Glucose (UA) (Negative) mg/dL Urine Ketones (Negative) mg/dL Urine Occult Blood (Negative) Urine Nitrate (Negative) Urine Bilirubin (Negative) Urine Urobilinogen (Less than 2) mg/dL Ur Leukocyte Esterase (Negative) Urine RBC (0-3) /hpf Urine WBC (0-5) /hpf Ur Squamous Epith Cells (0-5) /hpf Urine Bacteria (None) /hpf Hyaline Casts (0-3) /lpf Urine Mucus (Occasional) /lpf Imaging Data Radiologist's impression: Chest X-Ray 12/28/17 15:50 CONCLUSION: Minimal scarring or atelectasis in the right lower lobe Pulmonary Perfusion Imaging 12/28/17 17:57 CONCLUSION: Low probability scan for pulmonary embolus. Chest CTA 12/30/17 00:00 CONCLUSION: 1. No CT evidence for pulmonary artery embolism. 2. Linear parenchymal opacity in the superior segment of the right lower lobe consistent with atelectasis. 3. Otherwise, unremarkable CT examination of the chest. Discharge Plan Discharge Disposition Patient Disposition: 30 Still Patient Discharge Condition Condition: Good Discharge Order Discharge Orders: Discharge Order (Routine); Ordered 12/31/17 Ordered By: Subha Hermosillo Discharge Details Anticipated Discharge Date: 12/30/17 Discharge Comment: d/c once coumadin and incentive spirometer given f/u with PCP 01/01/18 Physicians Team ED Provider: Juan Vyas Primary Care Provider: UNKNOWN, Attending Provider: Subha Hermosillo Status ED Status: Left Department Discharge Information Discharge Date/Time: 12/28/17 21:44
[2017-12-28 17:11] LABS: Albumin 3.3 g/dL (3.4-5.0); Anion Gap 12 meq/L (5-15); Aspartate Aminotransferase 22 U/L (15-37); Blood Urea Nitrogen 35 mg/dL (7-18); Calcium 8.9 mg/dL (8.5-10.1); Carbon Dioxide 18.6 meq/L (21.0-32.0); Chloride 108 meq/L (98-107); Glomerular Filtration Rate 32 mL/min (>89); Glucose,Random 145 mg/dL (74-106); Magnesium 1.6 mg/dL (1.5-2.5); Potassium 3.7 meq/L (3.5-5.1); Sodium 139 meq/L (136-145)
[2017-12-28 17:12] LABS: Lymphocytes 4 % (9-44); Metamyelocytes 3 % (0-1); Monocytes 2 % (0-8); Myelocytes 1 % (0-0)
[2017-12-28 17:13] LABS: Alanine Aminotransferase 46 U/L (10-53); Platelet Estimate Normal (Normal); Platelet Morphology Normal (Normal)
[2017-12-28 17:16] LABS: Alkaline Phosphatase 72 U/L (45-117); Total Protein 7.3 g/dL (6.4-8.2)
[2017-12-28] MEDS ORDERED: Bisacodyl 10 MG Supp RECTAL PRN (18:55)
--- NOTE | 2017-12-28 20:20 | NM ---
EXAM DATE: 12/28/2017 8:05 PM EDT AGE/SEX: 27 years / Female INDICATIONS: Shortness of breath for one day. CLINICAL DATA: This is the patient's initial encounter. Patient reports that signs and symptoms have been present for 1 day and indicates a pain score of 0/10. MEDICAL/SURGICAL HISTORY: Congestive heart failure. Lupus. None. COMPARISON: C, CHEST 1V SINGLE AP, 12/28/2017. . No external comparison. DOSE: 1.1 mCi Tc99m DTPA aerosol 8.7 mCi Tc99m MAA IV TECHNIQUE: Following five minutes of tidal breathing of DTPA aerosol, planar images of the lungs wer e performed in eight projections. The patient was then injected with MAA, and eight-view perfusion s can was performed. FINDINGS: There is a homogeneous pattern of aerosol delivery to the periphery of both lungs. No focal ventilat ory defects are seen. The perfusion lung scan demonstrates a homogenous pattern of uptake in both lungs. No segmental or s ubsegmental defects are seen. CONCLUSION: Low probability scan for pulmonary embolus. Electronically signed by: Mahesh Gamboa MD 12/28/2017 8:18 PM EDT
[2017-12-28] MEDS ORDERED: Sod Chloride 0.9% Inj 1,000 ML IV.CONT SCH (21:30)
--- NOTE | 2017-12-28 22:49 | P.HPIM ---
History of Present Illness Primary Care Physician: UNKNOWN History of Present Illness: 27 y/o female with a history of CHF (unknown EF), lupus, and PE currently on Coumadin presented to the ED with complaints of shortness of breath. Patient states she has been short of breath for a few days and it felt like the same time as when she had a PE. She states the shortness of breath is worse she does have associated chest pain. The chest pain is nonradiating, intermittent, 4/10, with associated nausea and vomiting, nothing makes it worse, comes and goes. She does not follow with a material attendant as of now and does not remember her last EF. She follows with a pcp who doses her Coumadin and states her last INR was 1.7. Denies any fever, chills, cough, dysuria or dizziness. Review of Systems All other systems reviewed negative except as stated in HPI [facility] - History History Provided By: Patient - Medical History Medical History: Medical History (Last Updated 12/28/17 @ 18:23 by Kelsie Troncoso) CHF (congestive heart failure) Lupus (systemic lupus erythematosus) Pneumonia Pulmonary embolism - Surgical History Surgical History: Surgical History (Last Updated 12/29/17 @ 00:05 by Walker Osman RN) H/O abdominal surgery Hx of cholecystectomy - Family History Family History: Family History (Last Updated 12/28/17 @ 23:27 by KIRAN Landeros) Other HTN (hypertension) - Tobacco History Second Hand Smoke Exposure: No Tobacco Use In Past 30 Days: No Smoking Status: Former smoker - Alcohol History How Often Do You Have a Drink Containing Alcohol: Never - Substance Use History Substance History: No History of Abuse - Travel History Recent Travel in the [place] Within the Last 8 Weeks: No Recent Travel Out of the Country Within the Last 8 Weeks: No - Immunization History Tetanus Immunization: Unsure Hx Influenza Vaccine This Season: No Medications and Allergies Active Medications: Active Medications Al Hydroxide/Mg Hydroxide (Milk Of Anaya Liq) 30 ml PO Q12H PRN PRN Reason: Mild Constipation Albuterol (Duoneb Neb (Prn)) 1 ampul NEB Q4HR NEB PRN PRN Reason: SOB/WHEEZING Bisacodyl (Dulcolax Supp) 10 mg RECTAL DAILY PRN PRN Reason: SEVERE CONSITIPATION Budesonide/Formoterol Fumarate (Symbicort 160/4.5 Mcg Inh) 2 puff INH BID [facility] Carvedilol (Coreg) 25 mg PO BID [facility] Chlorthalidone (Hygroton) 25 mg PO DAILY [facility] Ceftriaxone Sodium 1,000 mg/ (Sodium Chloride) 100 mls @ 200 mls/hr IV.SIG Q24H [facility] Sodium Chloride (Ns Inj) 1,000 mls @ 84 mls/hr IV.CONT .[id number] [facility] Stop: 12/29/17 09:24 Lactulose (Lactulose Liq) 30 ml PO DAILY PRN PRN Reason: SEVERE CONSITIPATION Miscellaneous (Pill Splitter) 1 each OTHER UNSCH PRN PRN Reason: PILL SPLITTER Mycophenolate Mofetil (Cellcept) 1,500 mg PO BID [facility] Ondansetron HCl (Zofran Inj) 4 mg IV.PUSH Q6H PRN PRN Reason: NAUSEA OR VOMITING Prednisone (Deltasone) 5 mg PO DAILY [facility] Senna/Docusate Sodium (Phyllis-Colace) 1 tab PO BID [facility] Sennosides (Senokot) 17.2 mg PO Q12H PRN PRN Reason: Moderate Constipation Sodium Chloride (Ns Flush) 2 ml IV.FLUSH BID [facility] Sodium Chloride (Ns Flush) 2 ml IV.FLUSH UNSCH PRN PRN Reason: FLUSH AFTER USING IV ACCESS Temazepam (Restoril) 15 mg PO HS PRN PRN Reason: INSOMNIA Warfarin Sodium (Coumadin) 3 mg PO [id number] [facility] Allergies Allergy/AdvReac Type Severity Reaction Status Date / Time acetaminophen [From Percocet] Allergy Severe Itching Verified 12/28/17 18:25 oxycodone [From Percocet] Allergy Severe Itching Verified 12/28/17 18:25 Home Medications Medication Instructions Recorded Confirmed Type carvedilol 25 mg PO BID 12/28/17 12/28/17 History chlorthalidone 25 mg PO DAILY 12/28/17 12/28/17 History ergocalciferol (vitamin D2) 50,000 unit PO QWEEK 12/28/17 12/28/17 History furosemide 40 mg PO DAILY 12/28/17 12/28/17 History hydroxychloroquine 200 mg PO DAILY 12/28/17 12/28/17 History losartan 100 mg PO HS 12/28/17 12/28/17 History mycophenolate mofetil 1,500 mg PO BID 12/28/17 12/28/17 History potassium chloride 10 meq PO DAILY 12/28/17 12/28/17 History prednisone 5 mg PO DAILY 12/28/17 12/28/17 History warfarin 2 mg PO WEEKLY 12/28/17 12/28/17 History warfarin 3 mg PO DAILY 12/28/17 12/28/17 History Exam Vital signs: Vital Signs 12/28/17 14:52 12/28/17 18:15 12/28/17 18:21 Temperature 97.2 F L Pulse Rate 115 H 111 H Respiratory Rate 20 24 Blood Pressure 102/64 97/53 L Pulse Oximetry 99 99 99 12/28/17 18:28 Temperature Pulse Rate 100 H Respiratory Rate 18 Blood Pressure 101/52 L Pulse Oximetry Intake & Output 12/28/17 12/28/17 12/29/17 06:59 18:59 06:59 Intake Total 100 / 100 Balance 100 / 100 Weight 90.718 kg Intake: IV 100 / 100 Rocephin Inj 1,000 MG In NS Inj 100 / 100 100 ML @ 200 mls/hr IV.SIG ONCE ONE Rx#:[id number] Narrative: GENERAL: This is a well-nourished, well-developed patient, in no apparent distress. SKIN: Warm, dry, intact, no ecchymosis or open lesions EYES: Pupils equal round and reactive, no scleral edema or drainage CARDIOVASCULAR: Regular rate and rhythm without murmurs, gallops, or rubs. RESPIRATORY: clear diminished breath sounds, No wheezes, rales, or rhonchi. GASTROINTESTINAL: Abdomen soft, non-tender, nondistended. Normal active bowel sounds MUSCULOSKELETAL: Extremities without clubbing, cyanosis, or edema. NEURO: Alert & Oriented x4 to person, place, time, situation. Moves all ext x4 Results - Labs CBC & Chem 7: 12/29/17 10:37 12/30/17 07:12 Labs: Short CBC 12/28/17 Range/Units 16:10 WBC 10.3 (4.0-11.0) th/mm3 Hgb 11.5 L (11.6-15.3) gm/dL Hct 34.8 L (35.0-46.0) % Plt Count 354 (150-450) th/mm3 BMP 12/28/17 16:10 Sodium 139 Potassium 3.7 Chloride 108 H Carbon Dioxide 18.6 L BUN 35 H Creatinine 2.18 H Calcium 8.9 Cardiac Enzymes 12/28/17 Range/Units 16:10 Troponin I Less than 0.02 L (0.02-0.05) ng/mL Liver Function 12/28/17 Range/Units 16:10 Total Bilirubin 0.2 (0.2-1.0) mg/dL AST 22 (15-37) U/L ALT 46 (10-53) U/L Alkaline Phosphatase 72 (45-117) U/L Albumin 3.3 L (3.4-5.0) g/dL Urine 12/28/17 Range/Units 16:15 Urine Color Yellow (Yellw/Straw) Urine Clarity Cloudy H (Clear) Urine pH 5.0 (5.0-8.5) Ur Specific [place] 1.015 (1.002-1.035) Urine Protein 100 H (Neg-Trace) mg/dL Urine Glucose (UA) Negative (Negative) mg/dL - Imaging Impressions Chest X-Ray 12/28/17 15:50 CONCLUSION: Minimal scarring or atelectasis in the right lower lobe Pulmonary Perfusion Imaging 12/28/17 17:57 CONCLUSION: Low probability scan for pulmonary embolus. Caprini VTE Risk Assessment Caprini VTE Risk Assessment: Moderate/High Risk (score >= 2) Caprini Risk Assessment Model: Point Value = 1 Point Value = 2 Point Value = 3 Point Value = 5 Age 41-60 Minor surgery BMI > 25 kg/m2 Swollen legs Varicose veins or History of unexplained or recurrent spontaneous Oral contraceptives or hormone replacement Sepsis (< 1 month) Serious lung disease, including pneumonia (< 1 month) Abnormal pulmonary function Acute myocardial infarction Congestive heart failure (< 1 month) History of inflammatory bowel disease Medical patient at bed rest Age 61-74 Arthroscopic surgery Major open surgery (> 45 min) Laparoscopic surgery (> 45 min) Malignancy Confined to bed (> 72 hours) Immobilizing plaster cast Central venous access Age >= 75 History of VTE Family history of VTE Factor V Leiden Prothrombin [id number] Lupus anticoagulant Anticardiolipin antibodies Elevated serum homocysteine Heparin-induced thrombocytopenia Other congenital or acquired thrombophilia Stroke (< 1 month) Elective arthroplasty Hip, pelvis, or leg fracture Acute spinal cord injury (< 1 month) Prophylaxis Regimen: Total Risk Factor Score Risk Level Prophylaxis Regimen 0-1 Low Early ambulation 2 Moderate Order ONE of the following: *Sequential Compression Device (SCD) *Heparin 5000 units SQ BID 3-4 Higher Order ONE of the following medications: *Heparin 5000 units SQ TID *Enoxaparin/Lovenox 40 mg SQ daily (WT < 150 kg, CrCl > 30 mL/min) *Enoxaparin/Lovenox 30 mg SQ daily (WT < 150 kg, CrCl > 10-29 mL/min) *Enoxaparin/Lovenox 30 mg SQ BID (WT < 150 kg, CrCl > 30 mL/min) AND/OR *Sequential Compression Device (SCD) 5 or more Highest Order ONE of the following medications: *Heparin 5000 units SQ TID (Preferred with Epidurals) *Enoxaparin/Lovenox 40 mg SQ daily (WT < 150 kg, CrCl > 30 mL/min) *Enoxaparin/Lovenox 30 mg SQ daily (WT < 150 kg, CrCl > 10-29 mL/min) *Enoxaparin/Lovenox 30 mg SQ BID (WT < 150 kg, CrCl > 30 mL/min) AND *Sequential Compression Device (SCD) Assessment and Plan - Plan Dyspnea, unknown etiology, possible bronchitis -Duonebs scheduled and prn -VQ scan reviewed and low probability -2D echo, patient with underlying CHF -If kidneys improve patient may benefit from a CT chest Acute kidney injury, baseline around 1.1 -IVF NS x 1 L due to CHF -Trend creatine -avoid nephrotoxins -Kidney US if no improvement Subtherapeutic INR, INR 1.6 -Pharmacy to dose -Monitor INR DVT prophylaxis: Coumadin Discussed Condition With: Patient and RN
[2017-12-28] MEDS: Carvedilol 12.5 MG Tablet PO SCH (23:12)
[2017-12-28] MEDS: Budesonide-Formoterol 160/4.5 MCG 6 GM Inhaler INH SCH (23:12)
[2017-12-28] MEDS: Senna/Docusate Sodium 8.6/50 MG Tablet PO SCH (23:12)
[2017-12-28] MEDS ORDERED: Warfarin Consult Pharmacy OTHER SCH (23:25)
[2017-12-29] MEDS: Temazepam 15 MG Capsule PO PRN ×2 (00:11→22:39)
[2017-12-29] MEDS: Carvedilol 12.5 MG Tablet PO SCH ×2 (08:19→20:26)
[2017-12-29] MEDS: Budesonide-Formoterol 160/4.5 MCG 6 GM Inhaler INH SCH ×2 (08:19→22:39)
[2017-12-29] MEDS: predniSONE 5 MG Tablet PO SCH (08:19)
[2017-12-29] MEDS: Senna/Docusate Sodium 8.6/50 MG Tablet PO SCH ×2 (08:20→20:26)
[2017-12-29] MEDS ORDERED: Chlorthalidone 50 MG Tablet PO SCH (09:00)
--- NOTE | 2017-12-29 11:13 | P.PNIM ---
Subjective Interval history: f/u for dyspnea patient stated only occurs when she exert herself. she stated she had her INR check last week and it was 1.7. She was told to increase coumadin by 1 mg the entire week. denied any chest pain decrease UOP. patient stated chlorthalidone was added 1 month ago to her lasix. denied any LE edema. Physical Exam Vital signs: Vital Signs 12/28/17 14:52 12/28/17 18:15 12/28/17 18:21 Temperature 97.2 F L Pulse Rate 115 H 111 H Respiratory Rate 20 24 Blood Pressure 102/64 97/53 L Pulse Oximetry 99 99 99 12/28/17 18:28 12/28/17 20:00 12/29/17 00:00 Temperature 97.3 F L 97.4 F L Pulse Rate 100 H 87 97 H Respiratory Rate 18 18 17 Blood Pressure 101/52 L 107/66 119/65 Pulse Oximetry 97 99 12/29/17 01:30 12/29/17 04:00 12/29/17 07:50 Temperature 97.2 F L 98.3 F Pulse Rate 62 80 Respiratory Rate 15 18 16 Blood Pressure 117/65 110/76 Pulse Oximetry 100 100 12/29/17 07:58 Temperature Pulse Rate Respiratory Rate 16 Blood Pressure Pulse Oximetry Intake & Output 12/28/17 12/29/17 12/29/17 18:59 06:59 18:59 Intake Total 100 / 100 Balance 100 / 100 Weight 90.718 kg 83.4 kg Intake: IV 100 / 100 Rocephin Inj 1,000 MG In NS Inj 100 / 100 100 ML @ 200 mls/hr IV.SIG ONCE ONE Rx#:[id number] Other: # Voids 1 Date of Last Bowel Movement 12/28/17 12/28/17 Weight On Admission 83.461 kg - Constitutional no acute distress - Routine HEENT Exam Eye: Present: EOMI, PERRL ENT: Present: mucous membranes dry - Routine Neck Exam Present: supple - Routine Respiratory Exam Present: CTA bilaterally - Routine Cardiovascular Exam Comments: no r/m/g - Routine Abdominal Exam Present: soft, normoactive bowel sounds Comments: no TTP. no peritoneal signs. - Routine Extremities Exam Comments: negative edema Results - Labs CBC & Chem 7: 12/28/17 16:10 12/28/17 16:10 Laboratory Results - last 24 hr 12/28/17 12/28/17 12/28/17 16:10 16:10 16:10 WBC 10.3 RBC 3.74 L Hgb 11.5 L Hct 34.8 L MCV 93.2 MCH 30.7 MCHC 33.0 RDW 14.1 Plt Count 354 MPV 8.1 Prelim Diff (Auto) Slide review pending Neut % (Auto) 86.0 H Lymph % (Auto) 10.6 [place] % (Auto) 3.0 Eos % (Auto) 0.2 Baso % (Auto) 0.2 Neut # (Auto) 8.9 H Lymph # (Auto) 1.1 [place] # (Auto) 0.3 Eos # (Auto) 0.0 Baso # (Auto) 0.0 WBC Differential Manual diff final Seg Neuts % (Manual) 87 H Band Neuts % (Manual) 3 Lymphocytes % (Manual) 4 L Monocytes % (Manual) 2 Metamyelocytes % (Man) 3 H Myelocytes % (Man) 1 H Abs Neuts (Manual) 9.7 H Differential Comment . Platelet Estimate Normal Platelet Morphology Normal PT 16.2 H INR 1.6 APTT 20.4 L Sodium 139 Potassium 3.7 Chloride 108 H Carbon Dioxide 18.6 L Anion Gap 12 BUN 35 H Creatinine 2.18 H Estimated GFR 32 L Random Glucose 145 H Calcium 8.9 Magnesium 1.6 Total Bilirubin 0.2 AST 22 ALT 46 Alkaline Phosphatase 72 Troponin I Less than 0.02 L B-Natriuretic Peptide Total Protein 7.3 Albumin 3.3 L Urine Color Urine Clarity Urine pH Ur Specific [place] Urine Protein Urine Glucose (UA) Urine Ketones Urine Occult Blood Urine Nitrate Urine Bilirubin Urine Urobilinogen Ur Leukocyte Esterase Urine RBC Urine WBC Ur Squamous Epith Cells Urine Bacteria Hyaline Casts Urine Mucus 12/28/17 12/28/17 12/29/17 16:10 16:15 00:38 WBC RBC Hgb Hct MCV MCH MCHC RDW Plt Count MPV Prelim Diff (Auto) Neut % (Auto) Lymph % (Auto) [place] % (Auto) Eos % (Auto) Baso % (Auto) Neut # (Auto) Lymph # (Auto) [place] # (Auto) Eos # (Auto) Baso # (Auto) WBC Differential Seg Neuts % (Manual) Band Neuts % (Manual) Lymphocytes % (Manual) Monocytes % (Manual) Metamyelocytes % (Man) Myelocytes % (Man) Abs Neuts (Manual) Differential Comment Platelet Estimate Platelet Morphology PT INR APTT Sodium Potassium Chloride Carbon Dioxide Anion Gap BUN Creatinine Estimated GFR Random Glucose Calcium Magnesium Total Bilirubin AST ALT Alkaline Phosphatase Troponin I Less than 0.02 L B-Natriuretic Peptide 2 Total Protein Albumin Urine Color Yellow Urine Clarity Cloudy H Urine pH 5.0 Ur Specific [place] 1.015 Urine Protein 100 H Urine Glucose (UA) Negative Urine Ketones Negative Urine Occult Blood Moderate H Urine Nitrate Negative Urine Bilirubin Negative Urine Urobilinogen Less than 2 Ur Leukocyte Esterase Trace H Urine RBC 30 H Urine WBC 7 H Ur Squamous Epith Cells 13 Urine Bacteria Rare H Hyaline Casts 46 Urine Mucus Few H - Imaging Impressions Chest X-Ray 12/28/17 15:50 CONCLUSION: Minimal scarring or atelectasis in the right lower lobe Pulmonary Perfusion Imaging 12/28/17 17:57 CONCLUSION: Low probability scan for pulmonary embolus. Assessment and Plan - Plan Exertional Dyspnea -VQ scan reviewed and low probability. hx of PE with INR of 1.6. cannot do CTA of chest due to ARF. -pending 2D echo, patient with underlying CHF. pro BNP 2 and patient look dry. -still pending labs that was order for AM. Acute kidney injury -last Cr on 10/30/17 1.14. chlorthalidone was added to regimen. BNP 2. patient looks dry. -hold chlorthalidone and lasix. add IVFs. -monitor Cr still pending labs today. Subtherapeutic INR, INR 1.6 -Pharmacy to dose -Monitor INR DVT prophylaxis: Coumadin
[2017-12-29 11:14] LABS: Baso # (Auto) 0.1 th/mm3 (0.0-0.2); Baso % (Auto) 0.6 % (0.0-2.0); Hematocrit 30.9 % (35.0-46.0); Hemoglobin 10.3 gm/dL (11.6-15.3); Lymph % (Auto) 11.9 % (9.0-44.0); Mean Corpuscular HGB Conc 33.4 % (32.0-36.0); Mean Corpuscular Volume 92.7 fL (80.0-100.0); Mean Platelet Volume 8.2 fL (7.0-11.0); Mono # (Auto) 0.4 th/mm3 (0.0-0.9); Mono % (Auto) 5.2 % (0.0-8.0); Neut # (Auto) 6.8 th/mm3 (1.8-7.7); Neut % (Auto) 82.3 % (16.0-70.0); Platelet Count 307 th/mm3 (150-450); Red Blood Count 3.34 mil/mm3 (4.00-5.30); Red Cell Distribution Width 13.7 % (11.6-17.2); White Blood Count 8.2 th/mm3 (4.0-11.0)
[2017-12-29 11:22] LABS: INR 1.6 Ratio; Prothrombin Time 15.8 sec (9.8-11.6)
[2017-12-29 11:33] LABS: Alanine Aminotransferase 42 U/L (10-53); Anion Gap 14 meq/L (5-15); Aspartate Aminotransferase 17 U/L (15-37); Blood Urea Nitrogen 35 mg/dL (7-18); Calcium 8.9 mg/dL (8.5-10.1); Carbon Dioxide 19.3 meq/L (21.0-32.0); Chloride 107 meq/L (98-107); Glomerular Filtration Rate 45 mL/min (>89); Glucose,Random 137 mg/dL (74-106); Potassium 3.8 meq/L (3.5-5.1); Sodium 140 meq/L (136-145)
[2017-12-29 11:35] LABS: Alkaline Phosphatase 62 U/L (45-117); Total Protein 6.6 g/dL (6.4-8.2)
[2017-12-29 11:51] LABS: Lymphocytes 11 % (9-44); Monocytes 7 % (0-8); Myelocytes 6 % (0-0)
[2017-12-29 11:52] LABS: Platelet Estimate Normal (Normal); Platelet Morphology Normal (Normal); Tear Drop Cells 1+
--- NOTE | 2017-12-29 12:39 | ECHRPT ---
Indication: HEART FAILURE CONCLUSIONS The left ventricular systolic function is normal with an estimated ejection fraction in the range of 60-65%. Normal left ventricular size. Wall thickness is normal. No regional wall motion abnormalities are present. BP: / HR: Rhythm: Sinus MEASUREMENTS (Male / Female) Normal Values Technical Quality:Good 2D ECHO LV Diastolic Diameter PLAX 4.5 cm 4.2 - 5.9 / 3.9 - 5.3 cm LV Systolic Diameter PLAX 3.1 cm IVS Diastolic Thickness 1.1 cm 0.6 - 1.0 / 0.6 - 0.9 cm LVPW Diastolic Thickness 1.1 cm 0.6 - 1.0 / 0.6 - 0.9 cm LV Relative Wall Thickness 0.5 RV Internal Dim ED PLAX 2.5 cm LVOT Diameter 2.1 cm LA Systolic Diameter LX 3.6 cm 3.0 - 4.0 / 2.7 - 3.8 cm LV Ejection Fraction MOD 4C 61.1 % LV Ejection Fraction 4C AL 62.8 % M-MODE Aortic Root Diameter MM 1.9 cm LA Systolic Diameter MM 3.8 cm LA Ao Ratio MM 2.0 AV Cusp Separation MM 1.7 cm DOPPLER AV Peak Velocity 126.0 cm/s AV Peak Gradient 6.4 mmHg LVOT Peak Velocity 105.0 cm/s LVOT Peak Gradient 4.4 mmHg AV Area Cont Eq pk 2.9 cm MV Area PHT 4.1 cm Mitral E Point Velocity 71.8 cm/s Mitral A Point Velocity 57.3 cm/s Mitral E to A Ratio 1.3 LV E' Lateral Velocity 9.1 cm/s Mitral E to LV E' Lateral Ratio 7.9 LV E' Septal Velocity 6.2 cm/s Mitral E to LV E' Septal Ratio 11.5 PV Peak Velocity 90.9 cm/s PV Peak Gradient 3.3 mmHg FINDINGS LEFT VENTRICLE The left ventricular systolic function is normal with an estimated ejection fraction in the range of 60-65%. Normal left ventricular size. Wall thickness is normal. No regional wall motion abnormalities are present. RIGHT VENTRICLE Normal right ventricular size and systolic function. LEFT ATRIUM The left atrial size is normal. RIGHT ATRIUM The right atrial size is normal. ATRIAL SEPTUM Normal atrial septal thickness without atrial level shunting by limited color doppler interrogation. AORTA The aortic root and proximal ascending aorta are normal in size on limited imaging. MITRAL VALVE Structurally normal mitral valve. No mitral valve stenosis or regurgitation. AORTIC VALVE Trileaflet aortic valve. No aortic valve stenosis or regurgitation. TRICUSPID VALVE Structurally normal tricuspid valve. No tricuspid valve stenosis or regurgitation. PULMONARY VALVE The pulmonary valve is not well visualized. VESSELS The inferior vena cava is normal in size. PERICARDIUM No pericardial effusion. Burt Ruiz MD, FACC (Electronically Signed) Final Date:29 December 2017 12:39
--- NOTE | 2017-12-29 12:47 | ECG ---
Date Performed: 12/29/2017 Time Performed: 08:48:26 PTAGE: 27 years EKG: SINUS TACHYCARDIA NONSPECIFIC ST & T-WAVE ABNORMALITY ABNORMAL ECG Compared to PREVIOUS TRACING , ST-T abnormalities are new, LVH voltage criteria is not met as compare d to the prior tracing. PREVIOUS TRACIN10/30/2017 22.19 DOCTOR: Erik Bejarano Interpretating Date/Time 12/29/2017 12:46:02
[2017-12-29] MEDS: Acetaminophen 500 MG Tablet PO PRN (13:16)
[2017-12-29] MEDS: Sod Chloride 0.9% Inj 1,000 ML IV.CONT SCH (13:17)
[2017-12-30 08:14] LABS: INR 1.6 Ratio; Prothrombin Time 16.3 sec (9.8-11.6)
[2017-12-30 08:28] LABS: Calcium 8.8 mg/dL (8.5-10.1); Carbon Dioxide 21.7 meq/L (21.0-32.0); Potassium 3.6 meq/L (3.5-5.1)
[2017-12-30] MEDS: Carvedilol 12.5 MG Tablet PO SCH ×2 (10:45→20:36)
[2017-12-30] MEDS: predniSONE 5 MG Tablet PO SCH (10:46)
[2017-12-30] MEDS: Senna/Docusate Sodium 8.6/50 MG Tablet PO SCH ×2 (10:46→20:36)
[2017-12-30] MEDS: Budesonide-Formoterol 160/4.5 MCG 6 GM Inhaler INH SCH ×2 (10:47→20:38)
[2017-12-30] MEDS: Sod Chloride 0.9% Inj 1,000 ML IV.CONT SCH (10:47)
--- NOTE | 2017-12-30 13:47 | P.PNIM ---
Subjective Interval history: Patient still complains of severe ZUÑIGA, no cough, no fever, previous h/o PE Physical Exam Vital signs: Vital Signs 12/29/17 13:46 12/29/17 14:47 12/29/17 15:54 Temperature 97.5 F L Pulse Rate 110 H 108 H Respiratory Rate 18 Blood Pressure 108/60 Pulse Oximetry 98 12/29/17 20:00 12/29/17 21:10 12/30/17 00:00 Temperature 97.7 F 97.8 F Pulse Rate 83 80 91 H Respiratory Rate 18 Blood Pressure 127/86 121/80 Pulse Oximetry 100 99 98 12/30/17 04:00 12/30/17 07:59 12/30/17 08:00 Temperature 97.5 F L 97.8 F Pulse Rate 71 71 100 H Respiratory Rate 16 Blood Pressure 121/81 123/72 Pulse Oximetry 98 98 98 12/30/17 09:00 12/30/17 12:00 Temperature 97.6 F Pulse Rate 82 98 H Respiratory Rate 17 Blood Pressure 114/80 Pulse Oximetry 99 Intake & Output 12/29/17 12/30/17 12/30/17 18:59 06:59 18:59 Intake Total 960 / 960 1000 / 1000 Balance 960 / 960 1000 / 1000 Weight 83.5 kg Intake: IV 1000 / 1000 NS Inj 1,000 ML @ 50 mls/hr IV. 1000 / 1000 CONT .Q20H [facility] Rx#:[id number] Oral 960 / 960 Other: # Voids 3 3 1 Date of Last Bowel Movement 12/28/17 12/28/17 12/28/17 Narrative: Not in distress, well-nourished, looks stated age Normal rate and regular rhythm, no murmurs gallops or rubs appreciated. Clear to auscultation and symmetric bilaterally, normal respiratory effort. Normal bowel sounds, soft, non-tender, nondistended, no guarding. Extremities without clubbing, cyanosis, or edema. No rash of generalized distribution. Skin is warm and dry. AAO x3, no cranial nerve deficits, moves all 4 extremities, no focal neurologic deficits Results - Labs CBC & Chem 7: 12/29/17 10:37 12/30/17 07:12 Laboratory Results - last 24 hr 12/30/17 12/30/17 07:12 07:12 PT 16.3 H INR 1.6 Sodium 142 Potassium 3.6 Chloride 111 H Carbon Dioxide 21.7 Anion Gap 9 BUN 31 H Creatinine 0.98 Estimated GFR 81 L Random Glucose 76 Calcium 8.8 Assessment and Plan - Plan Exertional Dyspnea -VQ scan reviewed and low probability. hx of PE with INR of 1.6. cannot do CTA of chest due to ARF. Cardiogram was unremarkable, ejection fraction of 60-65, normal size right ventricle. BNP is 2. Still complaining of severe dyspnea on exertion, check CTA now that creatinine is better. Acute kidney injury -last Cr on 10/30/17 1.14. Creatinine is back to normal. Diuretics on hold. Subtherapeutic INR, INR 1.6 -Pharmacy to dose -Monitor INR. extra coumadin today. DVT prophylaxis: Coumadin, discharge once INR is therapeutic. Had PE while on Eliquis before, keep on coumadin
--- NOTE | 2017-12-30 16:39 | CT ---
EXAM DATE: 12/30/2017 4:33 PM EDT AGE/SEX: 27 years / Female INDICATIONS: Shortness of breath. CLINICAL DATA: This is the patient's initial encounter. Patient reports that signs and symptoms have been present for 1 day and indicates a pain score of 5/10. MEDICAL/SURGICAL HISTORY: Congestive heart failure. Lupus. . RADIATION DOSE: 10.53 CTDI (mGy) [place] [facility] [place]28/[place]. . TECHNIQUE: Volumetric scanning was performed using a multi-row detector CT scanner during bolus infu nancy of 65 ml Omnipaque 350 (iohexol) nonionic water-soluble contrast as a single exam dose. The axel a was post processed with a variety of visualization algorithms including full volume maximum intensi ty projection and sliding thin slab reformation. Using automated exposure control and adjustment of the mA and/or kV according to patient size, radiation dose was kept as low as reasonably achievable t o obtain optimal diagnostic quality images. DICOM format image data is available electronically for review and comparison. FINDINGS: Pulmonary Arteries: No filling defects are seen in the pulmonary arteries through the segmental vess els. The main pulmonary artery is normal in diameter. Lung: Linear parenchymal opacity in the superior segment of the right lower lobe. Pleura: No effusion, significant pleural thickening or pneumothorax. Mediastinum: Heart is unremarkable without pericardial effusion.No evidence of mediastinal or hilar adenopathy. Osseous Structures: No abnormal focal lytic or blastic bony lesions. Other: Visulaized upper abdomen is unremarkable. CONCLUSION: 1. No CT evidence for pulmonary artery embolism. 2. Linear parenchymal opacity in the superior segment of the right lower lobe consistent with atelec tasis. 3. Otherwise, unremarkable CT examination of the chest. Electronically signed by: Jarocho Ceballos MD 12/30/2017 4:37 PM EDT
[2017-12-31] MEDS: Sod Chloride 0.9% Inj 1,000 ML IV.CONT SCH (06:13)
[2017-12-31 08:00] LABS: INR 1.6 Ratio
--- NOTE | 2017-12-31 08:48 | P.PNIM ---
Subjective Interval history: No overnight events, still feels a little bit short of breath but better. No bleeding. INR is 1.6. Patient wants to go home and would like to follow-up with her primary care physician tomorrow. Physical Exam Vital signs: Vital Signs 12/30/17 09:00 12/30/17 12:00 12/30/17 16:00 Temperature 97.6 F 97.3 F L Pulse Rate 88 98 H 98 H Respiratory Rate 17 16 Blood Pressure 114/80 115/70 Pulse Oximetry 99 100 12/30/17 19:57 12/30/17 20:00 12/31/17 00:00 Temperature 98.3 F 97.7 F Pulse Rate 95 H 96 H 80 Respiratory Rate 24 18 18 Blood Pressure 118/70 114/68 Pulse Oximetry 98 97 12/31/17 04:00 12/31/17 07:25 Temperature 98.1 F Pulse Rate 99 H 92 H Respiratory Rate 18 Blood Pressure 110/66 Pulse Oximetry 97 Intake & Output 12/30/17 12/31/17 12/31/17 18:59 06:59 18:59 Intake Total 1800 / 1800 1320 / 1320 Balance 1800 / 1800 1320 / 1320 Weight 85.6 kg Intake: IV 1000 / 1000 1000 / 1000 NS Inj 1,000 ML @ 50 mls/hr IV. 1000 / 1000 1000 / 1000 CONT .Q20H LUIGI Rx#:[id number] Oral 800 / 800 320 / 320 Other: # Voids 1 3 Date of Last Bowel Movement 12/28/17 12/30/17 12/30/17 Narrative: Not in distress, well-nourished, looks stated age Normal rate and regular rhythm, no murmurs gallops or rubs appreciated. Clear to auscultation and symmetric bilaterally, normal respiratory effort. Normal bowel sounds, soft, non-tender, nondistended, no guarding. Extremities without clubbing, cyanosis, or edema. No rash of generalized distribution. Skin is warm and dry. AAO x3, no cranial nerve deficits, moves all 4 extremities, no focal neurologic deficits Results - Labs CBC & Chem 7: 12/29/17 10:37 12/30/17 07:12 Laboratory Results - last 24 hr 12/31/17 06:19 PT 16.0 H INR 1.6 - Imaging Impressions Chest CTA 12/30/17 00:00 CONCLUSION: 1. No CT evidence for pulmonary artery embolism. 2. Linear parenchymal opacity in the superior segment of the right lower lobe consistent with atelectasis. 3. Otherwise, unremarkable CT examination of the chest. Assessment and Plan - Plan Exertional Dyspnea -VQ scan reviewed and low probability. hx of PE with INR of 1.6. cannot do CTA of chest due to ARF. Cardiogram was unremarkable, ejection fraction of 60-65, normal size right ventricle. BNP is 2. CT was unremarkable other than atelectasis. Will give incentive spirometry. Patient wants to go home and follow-up with primary care physician in the morning, dyspnea on exertion may be related to acute renal failure. May discharge home today, will give extra dose of Coumadin 3 mg. She will take her Coumadin 2 mg tonight. And she would like to follow-up with her primary care physician tomorrow. Acute kidney injury -last Cr on 10/30/17 1.14. Creatinine is back to normal. There is some diuretics. Subtherapeutic INR, INR 1.6 -Pharmacy to dose -Monitor INR. extra coumadin today. DVT prophylaxis: Coumadin, discharge once INR is therapeutic. Had PE while on Eliquis before, keep on coumadin
--- NOTE | 2017-12-31 08:54 | P.DS ---
Date of admission: 12/28/17 18:27 Primary care physician: UNKNOWN Brief History from admission: 27 y/o female with a history of CHF (unknown EF), lupus, and PE currently on Coumadin presented to the ED with complaints of shortness of breath. Patient states she has been short of breath for a few days and it felt like the same time as when she had a PE. She states the shortness of breath is worse she does have associated chest pain. The chest pain is nonradiating, intermittent, 4/10, with associated nausea and vomiting, nothing makes it worse, comes and goes. She does not follow with a splitter machine as of now and does not remember her last EF. She follows with a pcp who doses her Coumadin and states her last INR was 1.7. Denies any fever, chills, cough, dysuria or dizziness. DS: Diagnosis - Discharge Diagnosis (1) SOB (shortness of breath) Status: Acute (2) Subtherapeutic international normalized ratio (INR) Status: Acute DS: Summary Hospital Course: 27 y/o female with a history of CHF (unknown EF), lupus, and PE currently on Coumadin presented to the ED with complaints of shortness of breath and chest pain. INR was 1.7 on admission. When patient came in, patient had an elevated creatinine. VQ scan was done which showed low probability for PE. Echocardiogram was unremarkable, ejection fraction is 60-65% with normal size right ventricle. BNP is 2. Renal failure resolved hence a CT scan with contrast was done which showed no PE but only showed atelectasis. Patient was given incentive spirometry. With volume resuscitation and holding her diuretics , her acute renal failure resolved. On the day of discharge, her INR is still 1.6. She cannot have any novel anticoagulants because she had PE before while on Eliquis. Patient remained stable. Patient wants to go home and follow-up with primary care physician in the morning, dyspnea on exertion may be related to acute renal failure. May discharge home today, will give extra dose of Coumadin 3 mg. She will take her Coumadin 3 mg tonight. And willfollow-up with her primary care physician tomorrow. Her diuretics may be restarted the next day. Patient agreed to follow-up with her primary care physician for INR check on 01/01/2018. - Time Spent with Patient Total time spent providing and/or coordinating discharge services: Greater than 30 minutes - Quality: VTE Deep Vein Thrombosis/Pulmonary Embolism Present on Admission: No Exam Vital signs: Vital Signs 12/30/17 09:00 12/30/17 12:00 12/30/17 16:00 Temperature 97.6 F 97.3 F L Pulse Rate 88 98 H 98 H Respiratory Rate 17 16 Blood Pressure 114/80 115/70 Pulse Oximetry 99 100 12/30/17 19:57 12/30/17 20:00 12/31/17 00:00 Temperature 98.3 F 97.7 F Pulse Rate 95 H 96 H 80 Respiratory Rate 24 18 18 Blood Pressure 118/70 114/68 Pulse Oximetry 98 97 12/31/17 04:00 12/31/17 07:25 Temperature 98.1 F Pulse Rate 99 H 92 H Respiratory Rate 18 Blood Pressure 110/66 Pulse Oximetry 97 Intake & Output 12/30/17 12/31/17 12/31/17 18:59 06:59 18:59 Intake Total 1800 / 1800 1320 / 1320 Balance 1800 / 1800 1320 / 1320 Weight 85.6 kg Intake: IV 1000 / 1000 1000 / 1000 NS Inj 1,000 ML @ 50 mls/hr IV. 1000 / 1000 1000 / 1000 CONT .Q20H LUIGI Rx#:[id number] Oral 800 / 800 320 / 320 Other: # Voids 1 3 Date of Last Bowel Movement 12/28/17 12/30/17 12/30/17 Results Procedures completed during hospitalization: none Labs on day of discharge: Labs from last 24 hours 12/31/17 06:19 PT 16.0 H INR 1.6 - Impressions ITS Impressions Chest X-Ray 12/28/17 15:50 CONCLUSION: Minimal scarring or atelectasis in the right lower lobe Pulmonary Perfusion Imaging 12/28/17 17:57 CONCLUSION: Low probability scan for pulmonary embolus. Chest CTA 12/30/17 00:00 CONCLUSION: 1. No CT evidence for pulmonary artery embolism. 2. Linear parenchymal opacity in the superior segment of the right lower lobe consistent with atelectasis. 3. Otherwise, unremarkable CT examination of the chest. Discharge Plan - Discharge Disposition Patient Disposition: 01 Discharge Home - Discharge Condition Condition: Good - Discharge Order Discharge Orders: Discharge Order (Routine); Ordered 12/31/17 Ordered By: Subha Hermosillo - Discharge Details Anticipated Discharge Date: 12/30/17 Discharge Comment: d/c once coumadin and incentive spirometer given - Physicians Team Primary Care Provider: UNKNOWN, Attending Provider: Subha Hermosillo
[2017-12-31] MEDS: Senna/Docusate Sodium 8.6/50 MG Tablet PO SCH (08:58)
[2017-12-31] MEDS: predniSONE 5 MG Tablet PO SCH (08:58)
[2017-12-31] MEDS: Budesonide-Formoterol 160/4.5 MCG 6 GM Inhaler INH SCH (09:05)
[2017-12-31] MEDS: Acetaminophen 500 MG Tablet PO PRN (09:05)
[2017-12-31] MEDS: Carvedilol 12.5 MG Tablet PO SCH (09:06)
== END 2017-12-31 16:05 | disposition home or self-care (01) ==
LOC: NEPC 14:45 → NEDA 14:45 → N06 14:45
PROVIDERS: ADMIT Hospitalist; ATTEND Hospitalist
DX: Z79.01 Long term (current) use of anticoagulants; M32.9 Systemic lupus erythematosus, unspecified; Z82.49 Family history of ischemic heart disease and other diseases of the circulatory system; I26.99 Other pulmonary embolism without acute cor pulmonale; N39.0 Urinary tract infection, site not specified; R79.1 Abnormal coagulation profile; F17.210 Nicotine dependence, cigarettes, uncomplicated; Z90.49 Acquired absence of other specified parts of digestive tract; I50.9 Heart failure, unspecified; J98.11 Atelectasis

== ENCOUNTER 2018-01-09 22:33 | Inpatient (IN) ==
[2018-01-09] MEDS ORDERED: Sod Chloride 0.9% Inj 1,000 ML IV.SIG ONE (23:09)
[2018-01-09 23:45] LABS: Baso % (Auto) 0.9 % (0.0-2.0); Eos # (Auto) 0.1 th/mm3 (0.0-0.4); Eos % (Auto) 1.1 % (0.0-4.0); Hematocrit 31.1 % (35.0-46.0); Hemoglobin 10.3 gm/dL (11.6-15.3); Lymph # (Auto) 1.4 th/mm3 (1.0-4.8); Mean Corpuscular HGB Conc 33.2 % (32.0-36.0); Mean Corpuscular Hemoglobin 30.7 pg (27.0-34.0); Mean Corpuscular Volume 92.4 fL (80.0-100.0); Mean Platelet Volume 8.6 fL (7.0-11.0); Mono # (Auto) 0.7 th/mm3 (0.0-0.9); Mono % (Auto) 14.2 % (0.0-8.0); Neut # (Auto) 2.9 th/mm3 (1.8-7.7); Neut % (Auto) 56.8 % (16.0-70.0); Platelet Count 375 th/mm3 (150-450); Red Blood Count 3.37 mil/mm3 (4.00-5.30); Red Cell Distribution Width 13.7 % (11.6-17.2)
[2018-01-10 00:06] LABS: Albumin 3.1 g/dL (3.4-5.0); Anion Gap 14 meq/L (5-15); Aspartate Aminotransferase 31 U/L (15-37); Blood Urea Nitrogen 35 mg/dL (7-18); Calcium 7.8 mg/dL (8.5-10.1); Carbon Dioxide 21.5 meq/L (21.0-32.0); Chloride 110 meq/L (98-107); Glomerular Filtration Rate 29 mL/min (>89); Glucose,Random 95 mg/dL (74-106); Lipase 128 U/L (73-393); Potassium 3.4 meq/L (3.5-5.1); Sodium 145 meq/L (136-145)
[2018-01-10 00:07] LABS: Alanine Aminotransferase 46 U/L (10-53)
[2018-01-10 00:09] LABS: Alkaline Phosphatase 68 U/L (45-117); Total Protein 6.7 g/dL (6.4-8.2)
[2018-01-10 00:17] LABS: Eosinophils 1 % (0-4); Lymphocytes 31 % (9-44); Metamyelocytes 5 % (0-1); Monocytes 11 % (0-8); Myelocytes 3 % (0-0); Platelet Estimate Normal (Normal); Platelet Morphology Normal (Normal); Promyelocyte 1 % (0-0); Tallied Nucleated RBC 1 (0-0)
[2018-01-10 00:18] LABS: Acanthocytes Occ
[2018-01-10 00:19] LABS: Tear Drop Cells 1+
[2018-01-10 01:14] LABS: Bacteria,Urine Rare /hpf; Bilirubin,Urine Negative (Negative); Clarity,Urine Hazy (Clear); Color,Urine Yellow (Yellw/Straw); Glucose,Urine (UA) Negative (Negative); Hyaline Casts,Urine 84 /lpf (0-3); Leukocyte Esterase,Urine Negative (Negative); Mucus,Urine Few /lpf (Occasional); Nitrite,Urine Negative (Negative); Specific Gravity,Urine 1.015 (1.002-1.035); Squamous Epithelial Cell,Urine 3 /hpf (0-5)
[2018-01-10] MEDS ORDERED: Sod Chloride 0.9% Inj 1,000 ML IV.SIG ONE (01:23)
[2018-01-10] MEDS ORDERED: Sod Chloride 0.9% Inj 1,000 ML IV.SIG SCH (01:30)
[2018-01-10] MEDS ORDERED: Morphine Inj 4 MG/ML Vial IV.PUSH ONE (01:44)
--- NOTE | 2018-01-10 01:56 | XR ---
EXAM DATE: 01/10/2018 1:42 AM EDT AGE/SEX: 27 years / Female INDICATIONS: Cough. CLINICAL DATA: This is the patient's initial encounter. Patient reports that signs and symptoms have been present for 1 week and indicates a pain score of 0/10. MEDICAL/SURGICAL HISTORY: None. None. COMPARISON: [facility] [place], [place]ULMONARY [place]GIOGRAM, 03/25/2017. [facility] [place], CHEST PA & LAT, 10/30/2017. [facility] [place], CT P ULMONARY ANGIOGRAM, 10/30/2017. [facility] [place], CTA PULMONARY W CONTRAST W 3D, 12/30/2017. . FINDINGS: Trace atelectasis again seen right lung base. No infiltrate demonstrated. No pleural effusion or pneu mothorax. Heart size stable, within normal limits. CONCLUSION: Minimal right base atelectasis. Otherwise negative one view chest x-ray. Electronically signed by: Sinan Silva MD 01/10/2018 1:55 AM EDT
--- NOTE | 2018-01-10 02:38 | CT ---
EXAM DATE: 01/10/2018 2:18 AM EDT AGE/SEX: 27 years / Female INDICATIONS: Abdominal pain with nausea and vomiting. CLINICAL DATA: This is the patient's initial encounter. Patient reports that signs and symptoms have been present for 1 day and indicates a pain score of 8/10. MEDICAL/SURGICAL HISTORY: Congestive heart failure. Lupus. PE. Cholecystectomy. RADIATION DOSE: 10.85 CTDI (mGy) COMPARISON: No prior exams available for comparison. TECHNIQUE: Multiple contiguous axial images were obtained through the abdomen. Images were obtained using multiple row detector helical technique. Using automated exposure control and adjustment of the mA and/or kV according to patient size, radiation dose was kept as low as reasonably achievable to o btain optimal diagnostic quality images. DICOM format image data is available electronically for rev iew and comparison. FINDINGS: The noncontrast appearance of the liver, spleen, pancreas, adrenal glands and kidneys is within melissa l limits. Cholecystectomy changes are noted. No biliary distention. No obstruction or acute inflammatory changes are seen of the gastrointestinal tract. Apparent previou s resection of the cecum and terminal ileum with a right lower quadrant ileocolic anastomosis that ap pears patent. Roughly 21 mm area of increased density inferomedially in the gely-cecum, probably some focally retained previously administered enteric contrast. There is a umbilical hernia containing fat only. No free fluid or free air. No lymphadenopathy. Trace atelectasis seen of the visualized lung bases. No acute bony abnormality demonstrated. CONCLUSION: 1. No obstruction or acute inflammatory changes are demonstrated. 2. Previous surgical changes of the cecum and terminal ileum with an ileocolic anastomosis. No assoc iated acute complication is demonstrated. 3. Fat-containing umbilical hernia. 4. Mild atelectasis of the visualized lung bases. Electronically signed by: Sinan Silva MD 01/10/2018 2:36 AM EDT
[2018-01-10 02:45] LABS: Activated Partial Thrombo Time 30.9 sec (24.3-30.1); INR 1.9 Ratio; Prothrombin Time 19.5 sec (9.8-11.6)
--- NOTE | 2018-01-10 04:07 | ED ---
HPI General Chief complaint: Nausea/Vomiting/Diarrhea Stated complaint: vomiting/EVAC Time Seen by Provider: 01/10/18 01:16 Source: patient Mode of arrival: ambulatory Limitations: no limitations History of Present Illness HPI Narrative: Patient is a 27-year-old female with history of lupus, PE currently on Coumadin, history of CHF as well as kidney failure. Patient reports that for the past 2 weeks, she has been having increased nausea and vomiting. Patient reports that she has not been able to keep anything down for the past 2 weeks. Patient also reports that she has had a URI, reports that she has a nonproductive cough. Patient reports that when she coughs, her chest x-ray. She is also complaining of shortness of breath. She has been taking her Coumadin for treatment of pulmonary embolism. Related Data Home Medications Medication Instructions Recorded Confirmed carvedilol 25 mg PO BID 12/28/17 01/09/18 chlorthalidone 25 mg PO DAILY 12/28/17 01/09/18 ergocalciferol (vitamin D2) 50,000 unit PO QWEEK 12/28/17 01/09/18 furosemide 40 mg PO DAILY 12/28/17 01/09/18 hydroxychloroquine 200 mg PO DAILY 12/28/17 01/09/18 losartan 100 mg PO HS 12/28/17 01/09/18 mycophenolate mofetil 1,500 mg PO BID 12/28/17 01/09/18 potassium chloride 10 meq PO DAILY 12/28/17 01/09/18 prednisone 5 mg PO DAILY 12/28/17 01/09/18 warfarin 2 mg PO WEEKLY 12/28/17 01/09/18 warfarin 3 mg PO DAILY 12/28/17 01/09/18 Allergies Allergy/AdvReac Type Severity Reaction Status Date / Time acetaminophen [From Percocet] Allergy Severe Itching Verified 01/09/18 22:45 oxycodone [From Percocet] Allergy Severe Itching Verified 01/09/18 22:45 Review of Systems ROS: all other systems reviewed are negative [facility] Medical History Medical History Pneumonia (Acute) Lupus (systemic lupus erythematosus) (Acute) Pulmonary embolism (Acute) CHF (congestive heart failure) (Acute) Surgical History Surgical History Hx of cholecystectomy (Acute) H/O abdominal surgery (Acute) Family History Family History Other HTN (hypertension) Social History Social History Substance History: No History of Abuse Second Hand Smoke Exposure: No Smoking Status: Never smoker Tobacco Type: Cigarettes How Often Do You Have a Drink Containing Alcohol: Never Recent Travel in [facility] within the Last 8 Weeks: No Recent Out of Country Travel within the Last 8 Weeks: No Immunization History Tetanus Immunization: <5 Years Hx Influenza Vaccine This Season: No Exam Narrative Exam Narrative: GENERAL: Mild distress SKIN: Focused skin assessment warm/dry. HEAD: Atraumatic. Normocephalic. EYES: Pupils equal and round. No scleral icterus. No injection or drainage. ENT: No nasal bleeding or discharge. Mucous membranes pink and moist. NECK: Trachea midline. No JVD. CARDIOVASCULAR: Regular rate and rhythm. No murmur appreciated. RESPIRATORY: No accessory muscle use. Clear to auscultation. Breath sounds equal bilaterally. GASTROINTESTINAL: Abdomen soft, non-tender, nondistended. Hepatic and splenic margins not palpable. MUSCULOSKELETAL: No obvious deformities. No clubbing. No cyanosis. No edema. NEUROLOGICAL: Awake and alert. No obvious cranial nerve deficits. Motor grossly within normal limits. Normal speech. PSYCHIATRIC: Appropriate mood and affect; insight and judgment normal. Course Initial Documented Vital Signs Temperature 98.5 F 01/09/18 22:48 Pulse Rate 94 H 01/09/18 22:48 Respiratory Rate 16 01/09/18 22:48 Blood Pressure 96/59 L 01/09/18 22:48 Pulse Oximetry 96 01/09/18 22:48 Last Documented Vital Signs Temperature 98.5 F 01/09/18 22:48 Pulse Rate 94 H 01/09/18 22:48 Respiratory Rate 16 01/09/18 22:48 Blood Pressure 96/59 L 01/09/18 22:48 Pulse Oximetry 96 01/09/18 22:48 Medical Decision Making MDM Narrative Medical decision making narrative: During the course of the patients emergency department visit, the patients history, examination, and differential diagnosis were reviewed with the patient. The patient was placed on a monitor worker with oximetry and frequent blood pressure monitoring. The patient had an IV access obtained and blood work sent for analysis. The patient was initially provided 2 liters of IVF as well as zofran. INR 1.9 trop: less than 0.02 Sodium 145, chloride 110, BUN 35, carbon dioxide 21.5, Cr 2.39 (baseline 1.14) X-ray of the chest with minimal right basal atelectasis. CT of the abdomen and pelvis with no obstruction or acute findings or changes. The patients laboratory studies were reviewed: WBC 5.0, hgb 10.3 (baseline), hct 31.1, platelet [address] Zhao who accepts patient to service Medical Screen Exam Complete: Yes Emergency Medical Condition: Yes Differential Diagnosis Differential Diagnosis: Small bowel obstruction, electrolyte abnormality, PE, ACS, arrhythmia, UTI, gastritis, gastroenteritis Medical Records Medical records reviewed: Yes I reviewed the patient's medical records. Lab Data Result diagrams: 01/09/18 23:30 01/09/18 23:30 POC Results POC Urine Results Negative Lab Results 01/09/18 01/09/18 01/09/18 Range/Units 23:30 23:30 23:30 WBC 5.0 (4.0-11.0) th/mm3 RBC 3.37 L (4.00-5.30) mil/mm3 Hgb 10.3 L (11.6-15.3) gm/dL Hct 31.1 L (35.0-46.0) % MCV 92.4 (80.0-100.0) fL MCH 30.7 (27.0-34.0) pg MCHC 33.2 (32.0-36.0) % RDW 13.7 (11.6-17.2) % Plt Count 375 (150-450) th/mm3 MPV 8.6 (7.0-11.0) fL Prelim Diff (Auto) Slide review pending Neut % (Auto) 56.8 (16.0-70.0) % Lymph % (Auto) 27.0 (9.0-44.0) % [place] % (Auto) 14.2 H (0.0-8.0) % Eos % (Auto) 1.1 (0.0-4.0) % Baso % (Auto) 0.9 (0.0-2.0) % Neut # (Auto) 2.9 (1.8-7.7) th/mm3 Lymph # (Auto) 1.4 (1.0-4.8) th/mm3 [place] # (Auto) 0.7 (0.0-0.9) th/mm3 Eos # (Auto) 0.1 (0.0-0.4) th/mm3 Baso # (Auto) 0.0 (0.0-0.2) th/mm3 WBC Differential Manual diff final Seg Neuts % (Manual) 48 (16-70) % Lymphocytes % (Manual) 31 (9-44) % Monocytes % (Manual) 11 H (0-8) % Eosinophils % (Manual) 1 (0-4) % Metamyelocytes % (Man) 5 H (0-1) % Myelocytes % (Man) 3 H (0-0) % Promyelocytes % (Man) 1 H (0-0) % Abs Neuts (Manual) 2.9 (1.8-7.7) th/mm3 Nucleated RBCs/100 WBC 1 H (0-0) /100 WBC Differential Comment . Platelet Estimate Normal (Normal) Platelet Morphology Normal (Normal) Tear Drop Cells 1+ H (None) Acanthocytes (Spur) Occ H (None) Keratocytes Occ H (None) PT (9.8-11.6) sec INR Ratio APTT (24.3-30.1) sec Sodium 145 (136-145) meq/L Potassium 3.4 L (3.5-5.1) meq/L Chloride 110 H (98-107) meq/L Carbon Dioxide 21.5 (21.0-32.0) meq/L Anion Gap 14 (5-15) meq/L BUN 35 H (7-18) mg/dL Creatinine 2.39 H (0.50-1.00) mg/dL Estimated GFR 29 L (>89) mL/min Random Glucose 95 (74-106) mg/dL Calcium 7.8 L (8.5-10.1) mg/dL Total Bilirubin 0.2 (0.2-1.0) mg/dL AST 31 (15-37) U/L ALT 46 (10-53) U/L Alkaline Phosphatase 68 (45-117) U/L Troponin I Less than 0.02 L Cancelled (0.02-0.05) ng/mL Total Protein 6.7 (6.4-8.2) g/dL Albumin 3.1 L (3.4-5.0) g/dL Lipase 128 (73-393) U/L Urine Color (Yellw/Straw) Urine Clarity (Clear) Urine pH (5.0-8.5) Ur Specific [place] (1.002-1.035) Urine Protein (Neg-Trace) mg/dL Urine Glucose (UA) (Negative) mg/dL Urine Ketones (Negative) mg/dL Urine Occult Blood (Negative) Urine Nitrate (Negative) Urine Bilirubin (Negative) Urine Urobilinogen (Less than 2) mg/dL Ur Leukocyte Esterase (Negative) Urine RBC (0-3) /hpf Urine WBC (0-5) /hpf Ur Squamous Epith Cells (0-5) /hpf Urine Bacteria (None) /hpf Hyaline Casts (0-3) /lpf Granular Casts (None) /lpf Urine Mucus (Occasional) /lpf Micro UA Comment Ur Microscopic Review Urine Culture Comments 01/10/18 01/10/18 Range/Units 00:45 01:40 WBC (4.0-11.0) th/mm3 RBC (4.00-5.30) mil/mm3 Hgb (11.6-15.3) gm/dL Hct (35.0-46.0) % MCV (80.0-100.0) fL MCH (27.0-34.0) pg MCHC (32.0-36.0) % RDW (11.6-17.2) % Plt Count (150-450) th/mm3 MPV (7.0-11.0) fL Prelim Diff (Auto) Neut % (Auto) (16.0-70.0) % Lymph % (Auto) (9.0-44.0) % [place] % (Auto) (0.0-8.0) % Eos % (Auto) (0.0-4.0) % Baso % (Auto) (0.0-2.0) % Neut # (Auto) (1.8-7.7) th/mm3 Lymph # (Auto) (1.0-4.8) th/mm3 [place] # (Auto) (0.0-0.9) th/mm3 Eos # (Auto) (0.0-0.4) th/mm3 Baso # (Auto) (0.0-0.2) th/mm3 WBC Differential Seg Neuts % (Manual) (16-70) % Lymphocytes % (Manual) (9-44) % Monocytes % (Manual) (0-8) % Eosinophils % (Manual) (0-4) % Metamyelocytes % (Man) (0-1) % Myelocytes % (Man) (0-0) % Promyelocytes % (Man) (0-0) % Abs Neuts (Manual) (1.8-7.7) th/mm3 Nucleated RBCs/100 WBC (0-0) /100 WBC Differential Comment Platelet Estimate (Normal) Platelet Morphology (Normal) Tear Drop Cells (None) Acanthocytes (Spur) (None) Keratocytes (None) PT 19.5 H (9.8-11.6) sec INR 1.9 Ratio APTT 30.9 H (24.3-30.1) sec Sodium (136-145) meq/L Potassium (3.5-5.1) meq/L Chloride (98-107) meq/L Carbon Dioxide (21.0-32.0) meq/L Anion Gap (5-15) meq/L BUN (7-18) mg/dL Creatinine (0.50-1.00) mg/dL Estimated GFR (>89) mL/min Random Glucose (74-106) mg/dL Calcium (8.5-10.1) mg/dL Total Bilirubin (0.2-1.0) mg/dL AST (15-37) U/L ALT (10-53) U/L Alkaline Phosphatase (45-117) U/L Troponin I (0.02-0.05) ng/mL Total Protein (6.4-8.2) g/dL Albumin (3.4-5.0) g/dL Lipase (73-393) U/L Urine Color Yellow (Yellw/Straw) Urine Clarity Hazy H (Clear) Urine pH 5.0 (5.0-8.5) Ur Specific [place] 1.015 (1.002-1.035) Urine Protein 30 H (Neg-Trace) mg/dL Urine Glucose (UA) Negative (Negative) mg/dL Urine Ketones Negative (Negative) mg/dL Urine Occult Blood Moderate H (Negative) Urine Nitrate Negative (Negative) Urine Bilirubin Negative (Negative) Urine Urobilinogen Less than 2 (Less than 2) mg/dL Ur Leukocyte Esterase Negative (Negative) Urine RBC 7 H (0-3) /hpf Urine WBC 7 H (0-5) /hpf Ur Squamous Epith Cells 3 (0-5) /hpf Urine Bacteria Rare H (None) /hpf Hyaline Casts 84 (0-3) /lpf Granular Casts 33 (None) /lpf Urine Mucus Few H (Occasional) /lpf Micro UA Comment Culture not ind Ur Microscopic Review Not Reportable Urine Culture Comments Culture not ind Imaging Data Radiologist's impression: Abdomen/Pelvis CT 01/10/18 01:23 CONCLUSION: 1. No obstruction or acute inflammatory changes are demonstrated. 2. Previous surgical changes of the cecum and terminal ileum with an ileocolic anastomosis. No associated acute complication is demonstrated. 3. Fat-containing umbilical hernia. 4. Mild atelectasis of the visualized lung bases. Chest X-Ray 01/10/18 01:23 CONCLUSION: Minimal right base atelectasis. Otherwise negative one view chest x-ray. Discharge Plan Discharge Disposition Patient Disposition: 30 Still Patient Discharge Condition Condition: Stable Discharge Details Diagnosis: Acute renal insufficiency Physicians Team ED Provider: Keena Harmon Primary Care Provider: UNKNOWN, Rxs /Orders / Referrals /Forms Prescriptions: No Action furosemide 40 mg Tablet 40 mg PO DAILY RF: 0 carvedilol 25 mg Tablet 25 mg PO BID RF: 0 potassium chloride 10 mEq Capsule, Extended Release 10 meq PO DAILY RF: 0 chlorthalidone 25 mg Tablet 25 mg PO DAILY RF: 0 warfarin 3 mg Tablet 3 mg PO DAILY RF: 0 mycophenolate mofetil 500 mg Tablet 1,500 mg PO BID RF: 0 prednisone 2.5 mg Tablet 5 mg PO DAILY RF: 0 warfarin 2 mg Tablet 2 mg PO WEEKLY RF: 0 ergocalciferol (vitamin D2) 50,000 unit Capsule 50,000 unit PO QWEEK RF: 0 hydroxychloroquine 200 mg Tablet 200 mg PO DAILY RF: 0 losartan 100 mg Tablet 100 mg PO HS RF: 0 Status ED Status: With Doctor
[2018-01-10] MEDS ORDERED: Bisacodyl 10 MG Supp RECTAL PRN (04:29)
[2018-01-10] MEDS ORDERED: Warfarin Consult Pharmacy OTHER PRN (04:31)
[2018-01-10] MEDS ORDERED: Promethazine 25 MG Supp RECTAL PRN (04:51)
[2018-01-10] MEDS: Sod Chloride 0.9% Inj 1,000 ML IV.CONT SCH ×4 (04:59→23:42)
--- NOTE | 2018-01-10 05:04 | P.PNIM ---
Subjective Interval history: 27-year-old female with a history of CHF, lupus, pulmonary embolism on warfarin who presents with a two-week history of nausea, nonbloody bilious vomiting, pleuritic right-sided chest pain worse with a deep breath. Patient denies any abdominal pain. Denies any fevers, chills, shortness of breath. Denies any constipation. Reports chronic nonbloody diarrhea. Patient reports chronic prednisone use due to her lupus. She started use in April, has been tapering over the past month. She is down to 7.5 mg daily. Physical Exam Vital signs: Vital Signs 01/09/18 22:48 Temperature 98.5 F Pulse Rate 94 H Respiratory Rate 16 Blood Pressure 96/59 L Pulse Oximetry 96 Intake & Output 01/09/18 01/09/18 01/10/18 06:59 18:59 06:59 Weight 75 kg Narrative: GENERAL: Patient sitting up in bed. Appears comfortable. SKIN: Warm and dry. HEAD: Atraumatic. Normocephalic. EYES: Pupils equal and round. No scleral icterus. No injection or drainage. ENT: No nasal bleeding or discharge. Mucous membranes pink and moist. NECK: Trachea midline. No JVD. CARDIOVASCULAR: Regular rate and rhythm. RESPIRATORY: No accessory muscle use. Clear to auscultation. Breath sounds equal bilaterally. GASTROINTESTINAL: Abdomen soft, non-tender, nondistended. Hepatic and splenic margins not palpable. MUSCULOSKELETAL: Extremities without clubbing, cyanosis, or edema. No obvious deformities. NEUROLOGICAL: Awake and alert. No obvious cranial nerve deficits. Motor grossly within normal limits. Five out of 5 muscle strength in the arms and legs. Normal speech. PSYCHIATRIC: Appropriate mood and affect; insight and judgment normal. Results - Labs CBC & Chem 7: 01/09/18 23:30 01/09/18 23:30 Laboratory Results - last 24 hr 01/09/18 01/09/18 01/09/18 23:30 23:30 23:30 WBC 5.0 RBC 3.37 L Hgb 10.3 L Hct 31.1 L MCV 92.4 MCH 30.7 MCHC 33.2 RDW 13.7 Plt Count 375 MPV 8.6 Prelim Diff (Auto) Slide review pending Neut % (Auto) 56.8 Lymph % (Auto) 27.0 [place] % (Auto) 14.2 H Eos % (Auto) 1.1 Baso % (Auto) 0.9 Neut # (Auto) 2.9 Lymph # (Auto) 1.4 [place] # (Auto) 0.7 Eos # (Auto) 0.1 Baso # (Auto) 0.0 WBC Differential Manual diff final Seg Neuts % (Manual) 48 Lymphocytes % (Manual) 31 Monocytes % (Manual) 11 H Eosinophils % (Manual) 1 Metamyelocytes % (Man) 5 H Myelocytes % (Man) 3 H Promyelocytes % (Man) 1 H Abs Neuts (Manual) 2.9 Nucleated RBCs/100 WBC 1 H Differential Comment . Platelet Estimate Normal Platelet Morphology Normal Tear Drop Cells 1+ H Acanthocytes (Spur) Occ H Keratocytes Occ H PT INR APTT Sodium 145 Potassium 3.4 L Chloride 110 H Carbon Dioxide 21.5 Anion Gap 14 BUN 35 H Creatinine 2.39 H Estimated GFR 29 L Random Glucose 95 Calcium 7.8 L Total Bilirubin 0.2 AST 31 ALT 46 Alkaline Phosphatase 68 Troponin I Less than 0.02 L Cancelled Total Protein 6.7 Albumin 3.1 L Lipase 128 Urine Color Urine Clarity Urine pH Ur Specific [place] Urine Protein Urine Glucose (UA) Urine Ketones Urine Occult Blood Urine Nitrate Urine Bilirubin Urine Urobilinogen Ur Leukocyte Esterase Urine RBC Urine WBC Ur Squamous Epith Cells Urine Bacteria Hyaline Casts Granular Casts Urine Mucus Micro UA Comment Ur Microscopic Review Urine Culture Comments 01/10/18 01/10/18 00:45 01:40 WBC RBC Hgb Hct MCV MCH MCHC RDW Plt Count MPV Prelim Diff (Auto) Neut % (Auto) Lymph % (Auto) [place] % (Auto) Eos % (Auto) Baso % (Auto) Neut # (Auto) Lymph # (Auto) [place] # (Auto) Eos # (Auto) Baso # (Auto) WBC Differential Seg Neuts % (Manual) Lymphocytes % (Manual) Monocytes % (Manual) Eosinophils % (Manual) Metamyelocytes % (Man) Myelocytes % (Man) Promyelocytes % (Man) Abs Neuts (Manual) Nucleated RBCs/100 WBC Differential Comment Platelet Estimate Platelet Morphology Tear Drop Cells Acanthocytes (Spur) Keratocytes PT 19.5 H INR 1.9 APTT 30.9 H Sodium Potassium Chloride Carbon Dioxide Anion Gap BUN Creatinine Estimated GFR Random Glucose Calcium Total Bilirubin AST ALT Alkaline Phosphatase Troponin I Total Protein Albumin Lipase Urine Color Yellow Urine Clarity Hazy H Urine pH 5.0 Ur Specific [place] 1.015 Urine Protein 30 H Urine Glucose (UA) Negative Urine Ketones Negative Urine Occult Blood Moderate H Urine Nitrate Negative Urine Bilirubin Negative Urine Urobilinogen Less than 2 Ur Leukocyte Esterase Negative Urine RBC 7 H Urine WBC 7 H Ur Squamous Epith Cells 3 Urine Bacteria Rare H Hyaline Casts 84 Granular Casts 33 Urine Mucus Few H Micro UA Comment Culture not ind Ur Microscopic Review Not Reportable Urine Culture Comments Culture not ind Microbiology 01/10/18 02:25 Throat Group A Streptococcus Screen ([facility]) - Final 01/10/18 02:25 Nasal Wash Influenza Types A,B Antigen - Final Negative for FLU A and B antigen Infection due to influenza A or B cannot be ruled out since the antigen present in the sample may be below the detection limit of the test. - Imaging Impressions Abdomen/Pelvis CT 01/10/18 01:23 CONCLUSION: 1. No obstruction or acute inflammatory changes are demonstrated. 2. Previous surgical changes of the cecum and terminal ileum with an ileocolic anastomosis. No associated acute complication is demonstrated. 3. Fat-containing umbilical hernia. 4. Mild atelectasis of the visualized lung bases. Chest X-Ray 01/10/18 01:23 CONCLUSION: Minimal right base atelectasis. Otherwise negative one view chest x-ray. Assessment and Plan - Plan //Acute kidney injury. -Creatinine 2.4 having previously been 0.89 on previous admission. Urinalysis with only 7 white blood cells. Will check kidney ultrasound. Likely secondary to dehydration from nausea vomiting. IV fluids. Monitor. //Nausea, vomiting -Could be multifactorial. Could be secondary to adrenal insufficiency, mycophenolate toxicity. Will check mycophenolate level. Will start on prednisone 10 mg daily. //History of pulmonary embolism on warfarin INR 1.9, slightly subtherapeutic. Pharmacy consult for monitoring. //History of lupus We will continue prednisone. Check mycophenolate level as above. Continue on Plaquenil. //History of CHF. Will continue on beta-corina. Will hold off on losartan, Lasix for now due to kidney injury. //Hypertension. Blood pressure acceptable. Will hold off on diuretics and losartan due to acute kidney injury Discussed Condition With: Patient, nurse, ED physician.
[2018-01-10 05:53] LABS: Amphetamine Screen,Urine Neg (Neg); Barbiturate Screen,Urine Neg (Neg); Cannabinoid Screen,Urine Neg (Neg); Cocaine Screen,Urine Neg (Neg)
[2018-01-10 05:57] LABS: Opiate Screen,Urine Neg (Neg)
[2018-01-10] MEDS: Carvedilol 12.5 MG Tablet PO SCH ×2 (08:58→20:54)
[2018-01-10] MEDS: predniSONE 5 MG Tablet PO SCH (08:58)
[2018-01-10] MEDS ORDERED: Hydroxychloroquine 200 MG Tablet PO SCH (09:00)
[2018-01-10] MEDS ORDERED: predniSONE 5 MG Tablet PO SCH (09:00)
--- NOTE | 2018-01-10 09:09 | US ---
EXAM DATE: 01/10/2018 8:44 AM EDT AGE/SEX: 27 years / Female INDICATIONS: Increased lab values. CLINICAL DATA: This is the patient's initial encounter. Patient reports that signs and symptoms have been present for 1 day and indicates a pain score of 0/10. MEDICAL/SURGICAL HISTORY: Congestive heart failure. Lupus. Pulmonary embolism. Cholecystecto my. COMPARISON: [facility] [place], CT ABDOMEN & PELVIS W/O CONTRAST, 01/10/2018. . MEASUREMENTS: Right Kidney:__10.2 x4.5x 5.4 cm Left Kidney:__9.6 x 6.1 x 5.0 cm FINDINGS: Right Kidney: Normal echotexture and cortical thickness. No mass or hydronephrosis. Left Kidney: Normal echotexture and cortical thickness. No mass or hydronephrosis. Bladder: Within normal limits given the degree of distension. Other: Echogenic parenchyma of the liver characteristic of steatosis. CONCLUSION: 1. Negative renal sonogram. 2. Hepatic steatosis. Electronically signed by: Quique Torrez MD 01/10/2018 9:08 AM EDT
[2018-01-10] MEDS: Senna/Docusate Sodium 8.6/50 MG Tablet PO SCH ×2 (10:51→20:54)
[2018-01-10 11:22] LABS: Hematocrit 28.7 % (35.0-46.0); Hemoglobin 9.4 gm/dL (11.6-15.3); Mean Corpuscular HGB Conc 32.6 % (32.0-36.0); Mean Corpuscular Hemoglobin 30.7 pg (27.0-34.0); Mean Corpuscular Volume 94.1 fL (80.0-100.0); Platelet Count 286 th/mm3 (150-450); Red Blood Count 3.05 mil/mm3 (4.00-5.30); Red Cell Distribution Width 13.8 % (11.6-17.2); White Blood Count 4.1 th/mm3 (4.0-11.0)
[2018-01-10 11:48] LABS: Calcium 7.9 mg/dL (8.5-10.1); Carbon Dioxide 22.5 meq/L (21.0-32.0); Potassium 3.3 meq/L (3.5-5.1)
--- NOTE | 2018-01-10 21:20 | ECG ---
Date Performed: 01/10/2018 Time Performed: 01:45:37 PTAGE: 27 years EKG: Sinus rhythm ST DEVIATION AND MODERATE T-WAVE ABNORMALITY, CONSIDER ANTEROLATERAL ISCHEMIA ABNORMAL ECG PREVIOUS TRACING : 12/29/2017 08.48 Since the previous tracing, no significant change noted DOCTOR: Gerardo Zayas Interpretating Date/Time 01/10/2018 21:19:36
[2018-01-10 22:45] VITALS: RESP 18
[2018-01-11 05:22] LABS: Baso % (Auto) 0.8 % (0.0-2.0); Eos # (Auto) 0.1 th/mm3 (0.0-0.4); Eos % (Auto) 1.6 % (0.0-4.0); Hematocrit 25.8 % (35.0-46.0); Hemoglobin 8.6 gm/dL (11.6-15.3); Lymph # (Auto) 1.2 th/mm3 (1.0-4.8); Lymph % (Auto) 34.2 % (9.0-44.0); Mean Corpuscular HGB Conc 33.3 % (32.0-36.0); Mean Corpuscular Hemoglobin 30.9 pg (27.0-34.0); Mean Corpuscular Volume 92.9 fL (80.0-100.0); Mean Platelet Volume 8.1 fL (7.0-11.0); Mono # (Auto) 0.6 th/mm3 (0.0-0.9); Mono % (Auto) 16.9 % (0.0-8.0); Neut # (Auto) 1.6 th/mm3 (1.8-7.7); Neut % (Auto) 46.5 % (16.0-70.0); Platelet Count 318 th/mm3 (150-450); Red Blood Count 2.77 mil/mm3 (4.00-5.30); Red Cell Distribution Width 14.1 % (11.6-17.2); White Blood Count 3.4 th/mm3 (4.0-11.0)
[2018-01-11 05:40] LABS: Prothrombin Time 20.1 sec (9.8-11.6)
[2018-01-11 05:52] LABS: Albumin 2.8 g/dL (3.4-5.0); Anion Gap 9 meq/L (5-15); Aspartate Aminotransferase 34 U/L (15-37); Blood Urea Nitrogen 21 mg/dL (7-18); Calcium 8.2 mg/dL (8.5-10.1); Carbon Dioxide 23.2 meq/L (21.0-32.0); Chloride 117 meq/L (98-107); Glomerular Filtration Rate 66 mL/min (>89); Glucose,Random 70 mg/dL (74-106); Potassium 4.1 meq/L (3.5-5.1); Sodium 149 meq/L (136-145)
[2018-01-11 05:54] LABS: Alanine Aminotransferase 48 U/L (10-53)
[2018-01-11 05:56] LABS: Alkaline Phosphatase 57 U/L (45-117); Total Protein 5.8 g/dL (6.4-8.2)
[2018-01-11 08:05] LABS: Lymphocytes 30 % (9-44); Metamyelocytes 2 % (0-1); Monocytes 5 % (0-8); Promyelocyte 1 % (0-0)
[2018-01-11 08:06] LABS: Platelet Estimate Normal (Normal); Platelet Morphology Normal (Normal); Tear Drop Cells 1+
[2018-01-11] MEDS: Carvedilol 12.5 MG Tablet PO SCH (08:20)
[2018-01-11] MEDS: Senna/Docusate Sodium 8.6/50 MG Tablet PO SCH (08:20)
[2018-01-11] MEDS: predniSONE 5 MG Tablet PO SCH (08:21)
[2018-01-11 08:39] VITALS: BP 107/74; PULSE 87; TEMP 98; O2SAT 97
--- NOTE | 2018-01-11 10:43 | P.PNIM ---
Subjective Interval history: Patient reports she is feeling much better today. She is tolerating her diet. No more nausea or vomiting. Renal functions improved. Physical Exam Vital signs: Vital Signs 01/10/18 12:00 01/10/18 16:00 01/10/18 20:00 Temperature 97.4 F L 97.1 F L 98.1 F Pulse Rate 81 90 94 H Respiratory Rate 20 20 18 Blood Pressure 105/58 L 99/55 L 100/57 L Pulse Oximetry 97 98 98 01/11/18 00:00 01/11/18 04:00 01/11/18 08:00 Temperature 98.2 F 98 F 98.0 F Pulse Rate 72 69 87 Respiratory Rate 18 18 18 Blood Pressure 108/55 L 104/56 L 107/74 Pulse Oximetry 95 96 97 Intake & Output 01/10/18 01/11/18 01/11/18 18:59 06:59 18:59 Intake Total 1170 / 1170 Balance 1170 / 1170 Weight 75 kg Intake: IV 950 / 950 NS Inj 1,000 ML @ 100 mls/hr IV 950 / 950 .CONT .Q10H LUIGI Rx#:[id number] Oral 220 / 220 Other: # Voids 1 3 Date of Last Bowel Movement 01/09/18 01/10/18 # Bowel Movements 0 Narrative: GENERAL: This is a well-nourished, well-developed patient, in no apparent distress. CARDIOVASCULAR: Normal rate and regular rhythm without murmurs, gallops, or rubs. RESPIRATORY: Good respiratory efforts. Breath sounds equal and clear to auscultation bilaterally. GASTROINTESTINAL: Abdomen soft, non-tender, non-distended. Normal active bowel sounds MUSCULOSKELETAL: Extremities without cyanosis, or edema. NEURO: Alert & Oriented x4 to person, place, time, situation. Moves all ext x4 PSYCH: Appropriate mood and affect. Results - Labs CBC & Chem 7: 01/11/18 04:13 01/11/18 04:13 Laboratory Results - last 24 hr 01/10/18 01/10/18 01/10/18 10:26 10:26 10:26 WBC 4.1 RBC 3.05 L Hgb 9.4 L Hct 28.7 L MCV 94.1 MCH 30.7 MCHC 32.6 RDW 13.8 Plt Count 286 MPV 8.0 Prelim Diff (Auto) Neut % (Auto) Lymph % (Auto) [place] % (Auto) Eos % (Auto) Baso % (Auto) Neut # (Auto) Lymph # (Auto) [place] # (Auto) Eos # (Auto) Baso # (Auto) WBC Differential Seg Neuts % (Manual) Lymphocytes % (Manual) Monocytes % (Manual) Metamyelocytes % (Man) Promyelocytes % (Man) Abs Neuts (Manual) Differential Comment Platelet Estimate Platelet Morphology Tear Drop Cells PT INR Sodium 145 Potassium 3.3 L Chloride 111 H Carbon Dioxide 22.5 Anion Gap 12 BUN 31 H Creatinine 1.71 H Estimated GFR 43 L Random Glucose 84 Calcium 7.9 L Magnesium 1.9 Total Bilirubin AST ALT Alkaline Phosphatase Total Protein Albumin 01/11/18 01/11/18 01/11/18 04:13 04:13 04:13 WBC 3.4 L RBC 2.77 L Hgb 8.6 L Hct 25.8 L MCV 92.9 MCH 30.9 MCHC 33.3 RDW 14.1 Plt Count 318 MPV 8.1 Prelim Diff (Auto) Slide review pending Neut % (Auto) 46.5 Lymph % (Auto) 34.2 [place] % (Auto) 16.9 H Eos % (Auto) 1.6 Baso % (Auto) 0.8 Neut # (Auto) 1.6 L Lymph # (Auto) 1.2 [place] # (Auto) 0.6 Eos # (Auto) 0.1 Baso # (Auto) 0.0 WBC Differential Manual diff final Seg Neuts % (Manual) 62 Lymphocytes % (Manual) 30 Monocytes % (Manual) 5 Metamyelocytes % (Man) 2 H Promyelocytes % (Man) 1 H Abs Neuts (Manual) 2.2 Differential Comment . Platelet Estimate Normal Platelet Morphology Normal Tear Drop Cells 1+ H PT 20.1 H INR 2.0 Sodium 149 H Potassium 4.1 D Chloride 117 H Carbon Dioxide 23.2 Anion Gap 9 BUN 21 H Creatinine 1.17 H Estimated GFR 66 L Random Glucose 70 L Calcium 8.2 L Magnesium Total Bilirubin 0.1 L AST 34 ALT 48 Alkaline Phosphatase 57 Total Protein 5.8 L D Albumin 2.8 L Assessment and Plan - Plan 27-year-old female with: Acute kidney injury. -Creatinine 2.4 having previously been 0.89 on previous admission. Urinalysis with only 7 white blood cells. The patient has been having nausea and vomiting. This was likely secondary to dehydration. Her renal function significantly and quickly improved with IV fluid. She is advised to continue with oral hydration. 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 She is advised to keep her follow-up appointment in the coming weeks. Nausea, vomiting -Given an abrupt onset and quickly resolving symptoms, I suspect this is likely a viral gastroenteritis. Patient advised to continue with oral hydration as above. History of pulmonary embolism on warfarin Continue Coumadin. History of lupus Continue home dose prednisone Plaquenil. History of CHF. Will continue on beta-corina. Continue to hold off on losartan, Lasix for now due to kidney injury. Patient advised to follow-up with PCP within a week to decide on restarting these medications. Her blood pressure has been borderline low. Hypertension. Blood pressure acceptable. Holding off on diuretics and losartan due to acute kidney injury as noted above. Discharge Planning: Discharge patient to home Condition on discharge: Improved Regular Diet as tolerated Ad Shae activity Rx written: None Follow-up with primary care physician
[2018-01-11 22:02] LABS: Mycophenolic Acid 7.4 mcg/mL (1.0 - 3.5)
== END 2018-01-11 12:49 | disposition home or self-care (01) ==
LOC: NEPE 22:33 → NEDA 01-10 04:26 → N05 01-10 06:10
PROVIDERS: ADMIT Family Medicine; ATTEND Family Medicine